=== PATIENT | male | born 1965 | race Caucasian/White ===

== ENCOUNTER 2022-07-13 09:53 | Emergency (ER) | payer SELFPAY ==
[2022-07-13] VITALS (15 sets, daily range): BP systolic 102–120; BP diastolic 69–81; PULSE 56–75; RESP 12–20; TEMP 35.7; O2SAT 94–99
--- NOTE | 2022-07-13 10:13 | DI.RAD.S_ITS ---
PROCEDURE: XR CHEST 1V INDICATIONS: weakness TECHNIQUE: One view of the chest was acquired. COMPARISON: None. FINDINGS: Surgical changes and devices: None. Lungs and pleura: A probable granuloma is present within the right upper lung. Lungs are otherwise clear. No pleural effusions or pneumothorax. Mediastinum: Mediastinal contours appear normal. Heart size is normal. Bones and chest wall: No suspicious bony lesions. Overlying soft tissues appear unremarkable. IMPRESSION: Probable right upper lung granuloma. However, small soft tissue nodule cannot be excluded. If further characterization and documentation is warranted, CT of the chest could be used. No acute cardiopulmonary findings. Dictated by: Laura Paz M.D. on 07/13/2022 at 11:14 Approved by: Laura Paz M.D. on 07/13/2022 at 11:15
--- NOTE | 2022-07-13 10:15 | ED.NAVMDI ---
HPI - Nausea/Vomiting/Diarrhea General Chief complaint: Nausea/Vomiting/Diarrhea Stated complaint: Cold, clammy since yesterday- thinks low bp Time Seen by Provider: 07/13/22 09:58 Source: patient Mode of arrival: Ambulatory History of Present Illness HPI Narrative: Patient is a 56-year-old male history of iron deficiency anemia and hypothyroid presenting today with generalized weakness. He says yesterday he started feeling cool and clammy. He was very lightheaded whenever he stood up. He has not had any falling. He denies any chest pain dizziness shortness of breath exertion. He has not had any fever. He does feel a bit chilled. He does not have any sweats. No cough he just does not feel quite right. No pain abdominal pain nausea vomiting no painful or frequent urination. He previously was taking iron but is not any longer. He denies any blood in his stool no black tarry stools or bright red blood. Related Data Home Medications Medication Instructions Recorded Confirmed LEVOTHYROXINE SODIUM (Synthroid) 0.1 mg PO EVERY DAY ##0 08/03/06 Allergies Allergy/AdvReac Type Severity Reaction Status Date / Time Sulfa (Sulfonamide Allergy Verified 07/13/22 10:03 Antibiotics) Review of Systems Review of Systems Narrative: GENERAL: Chills, generalized weakness HEENT: Denies sinus pain, ear pain, sore throat, difficulty swallowing, neck pain RESPIRATORY: Denies dyspnea, cough, wheezing, hemoptysis, sputum. CARDIOVASCULAR: Denies chest pain, palpitations, orthopnea, edema GASTROINTESTINAL: Denies nausea, vomiting, abdominal pain, diarrhea, constipation, melena. : Denies dysuria, frequency, incontinence, hematuria, urinary retention, flank pain. MUSCULOSKELETAL: Denies weakness, joint pain, or bony pain SKIN: No rash, no erythema, no pruritus NEUROLOGIC: Denies weakness, dizziness, headache, numbness, change in speech, confusion PSYCHIATRIC: No concerning psychosocial issues. 12 point review of systems is negative except for those stated above and HPI Patient History Social History Smoking Status: Never smoker Smoking Status: Never smoker Substance Use Type: does not use Exam Initial Vital Signs Initial Vital Signs: Vital Signs Temperature 96.2 F L 07/13/22 10:04 Pulse Rate 71 07/13/22 10:04 Respiratory Rate 18 07/13/22 10:04 Blood Pressure 120/81 07/13/22 10:04 Pulse Oximetry 98 07/13/22 10:04 Oxygen Delivery Method 07/13/22 10:04 GENERAL: Pale alert 56-year-old male and in no acute distress. HEENT: Head atraumatic,EOMI, pupils reactive, face symmetric, moist mucous membranes CARDIOVASCULAR: Regular rate and rhythm without murmurs, rubs or gallops. RESPIRATORY: Breath sounds equal bilaterally, no wheezes rales or rhonchi. ABDOMEN: Soft, nontender. Normoactive bowel sounds all 4 quadrants. No guarding or rebound. : No CVA tenderness EXTREMITIES: Normal range of motion, no clubbing or edema. Neurovascularly intact NEUROLOGICAL: Alert and oriented x4.Normal gait and speech. SKIN: Warm, dry, no laceration, no petechiae, no rashes or lesions. Course Orders Ordered: ED Orders 07/13/22 10:11 COVID19 -Nasal RAPID/Pre-Proc Stat 07/13/22 10:13 Chest [XR chest 1V] Stat 07/13/22 10:15 EKG-12 Lead Stat 07/13/22 10:20 CBC Auto Diff [Complete Blood Count AUTO DIFF] Stat CMP [Comprehensive Metabolic Panel] Stat Lactate (Lactic Acid) Stat Procalcitonin Stat TSH [Thyroid Stimulating Hormone] Stat Troponin & CK Cardiac Panel Stat 07/13/22 10:36 Blood Culture Stat 07/13/22 12:33 [place] [facility] [place] Stat 07/13/22 13:17 CPK [Creatine Kinase] Stat Discontinued Medications Sodium Chloride (Normal Saline 0.9%) 1,000 mls @ 1,000 mls/hr IV BOLUS ONE Stop: 07/13/22 12:37 Last Infusion: 07/13/22 13:04 Dose: 0 mls/hr Documented By: Admin: 07/13/22 11:46 Dose: 1,000 mls/hr Documented By: JJ Sodium Chloride (Normal Saline 0.9%) 1,000 mls @ 1,000 mls/hr IV BOLUS ONE Stop: 07/13/22 14:41 Last Infusion: 07/13/22 14:28 Dose: 0 mls/hr Documented By: Admin: 07/13/22 14:15 Dose: 1,000 mls/hr Documented By: TOMASA Vital Signs Vital signs: Vital Signs - 8 hr 07/13/22 11:37 07/13/22 11:30 07/13/22 11:30 Pulse Rate 57 L Pulse Rate [Orthostatic Lying] 60 Pulse Rate [Orthostatic Sitting] 67 Pulse Rate [Orthostatic Standing] 75 Respiratory Rate 16 Blood Pressure 105/74 Blood Pressure [Orthostatic Lying] 119/81 Blood Pressure [Orthostatic Sitting] 111/78 Blood Pressure [Orthostatic Standing] 111/76 Pulse Oximetry 98 Oxygen Delivery Method 07/13/22 12:00 07/13/22 12:00 07/13/22 12:30 Pulse Rate 59 L 57 L Pulse Rate [Orthostatic Lying] Pulse Rate [Orthostatic Sitting] Pulse Rate [Orthostatic Standing] Respiratory Rate 16 16 Blood Pressure 105/70 Blood Pressure [Orthostatic Lying] Blood Pressure [Orthostatic Sitting] Blood Pressure [Orthostatic Standing] Pulse Oximetry 97 98 Oxygen Delivery Method 07/13/22 13:06 07/13/22 13:06 07/13/22 13:30 Pulse Rate 66 Pulse Rate [Orthostatic Lying] Pulse Rate [Orthostatic Sitting] Pulse Rate [Orthostatic Standing] Respiratory Rate 20 Blood Pressure 113/75 112/78 Blood Pressure [Orthostatic Lying] Blood Pressure [Orthostatic Sitting] Blood Pressure [Orthostatic Standing] Pulse Oximetry 94 Oxygen Delivery Method 07/13/22 13:30 07/13/22 14:07 07/13/22 14:26 Pulse Rate 56 L 70 Pulse Rate [Orthostatic Lying] Pulse Rate [Orthostatic Sitting] Pulse Rate [Orthostatic Standing] Respiratory Rate Blood Pressure 102/69 Blood Pressure [Orthostatic Lying] Blood Pressure [Orthostatic Sitting] Blood Pressure [Orthostatic Standing] Pulse Oximetry 99 Oxygen Delivery Method 07/13/22 14:26 Pulse Rate 59 L Pulse Rate [Orthostatic Lying] Pulse Rate [Orthostatic Sitting] Pulse Rate [Orthostatic Standing] Respiratory Rate Blood Pressure Blood Pressure [Orthostatic Lying] Blood Pressure [Orthostatic Sitting] Blood Pressure [Orthostatic Standing] Pulse Oximetry 99 Oxygen Delivery Method Room Air MDM - Nausea/Vomiting/Diarrhea Lab Data Result diagrams: 07/13/22 10:20 07/13/22 10:20 Labs: Lab Results 07/13/22 07/13/22 07/13/22 Range/Units 10:11 10:20 10:20 WBC 2.7 L (4.5-11.0) X10^3/uL RBC 3.17 L (4.5-5.9) X10^6/uL Hgb 11.0 L (13.5-17.5) g/dL Hct 31.0 L (41-53) % MCV 97.6 (80-100) fL MCH 34.6 H (26-34) PG MCHC 35.4 (30-36) % RDW 14.4 (11.6-14.8) % Plt Count 201 (150-400) X10^3/uL Neut % (Auto) 30.7 L (50-75) % Lymph % (Auto) 49.3 H (25-40) % [place] % (Auto) 5.3 (3-14) % Eos % (Auto) 12.9 H (2-4) % Baso % (Auto) 1.8 (0-2) % Neut # (Auto) 800 L (9595-4800) /uL Lymph # (Auto) 1300 (1813-8028) /uL [place] # (Auto) 100 (0-900) /uL Eos # (Auto) 300 (0-450) /uL Baso # (Auto) 0 (0-100) /uL Sodium 127 L (137-145) mmol/L Potassium 3.6 (3.4-5.1) mmol/L Chloride 90 L (98-107) mmol/L Carbon Dioxide 26 (22-32) mmol/L BUN 7 L (9-20) mg/dL Creatinine 1.07 (0.66-1.25) mg/dL Estimated GFR > 60 (>60) mL/min BUN/Creatinine Ratio 6.5 (6-22) Glucose 113 H (70-100) mg/dL Lactate (0.7-2.1) mmol/L Calcium 8.7 (8.4-10.2) mg/dL Total Bilirubin 0.6 (0.2-1.3) mg/dL AST 96 H (17-59) IU/L ALT 36 (<50) IU/L Alkaline Phosphatase 42 (38-126) U/L Total Creatine Kinase 2086 H (55-170) U/L CK-MB (CK-2) 12.60 H (<2.37) ng/mL CK-MB (CK-2) Rel Index 0.6 L (1.5-5.0) % Troponin I 0.013 (0.01-0.034) ng/mL Total Protein 7.8 (6.3-8.2) g/dL Albumin 4.5 (3.5-5.0) g/dL Globulin 3.3 (1.7-4.1) g/dL Albumin/Globulin Ratio 1.4 (1.0-2.8) Procalcitonin (<0.5) ng/mL TSH (0.47-4.68) uIU/mL SARS-CoV-2 (PCR) Negative (Negative) 07/13/22 07/13/22 07/13/22 Range/Units 10:20 10:20 10:20 WBC (4.5-11.0) X10^3/uL RBC (4.5-5.9) X10^6/uL Hgb (13.5-17.5) g/dL Hct (41-53) % MCV (80-100) fL MCH (26-34) PG MCHC (30-36) % RDW (11.6-14.8) % Plt Count (150-400) X10^3/uL Neut % (Auto) (50-75) % Lymph % (Auto) (25-40) % [place] % (Auto) (3-14) % Eos % (Auto) (2-4) % Baso % (Auto) (0-2) % Neut # (Auto) (4491-8327) /uL Lymph # (Auto) (2595-5123) /uL [place] # (Auto) (0-900) /uL Eos # (Auto) (0-450) /uL Baso # (Auto) (0-100) /uL Sodium (137-145) mmol/L Potassium (3.4-5.1) mmol/L Chloride (98-107) mmol/L Carbon Dioxide (22-32) mmol/L BUN (9-20) mg/dL Creatinine (0.66-1.25) mg/dL Estimated GFR (>60) mL/min BUN/Creatinine Ratio (6-22) Glucose (70-100) mg/dL Lactate 0.9 (0.7-2.1) mmol/L Calcium (8.4-10.2) mg/dL Total Bilirubin (0.2-1.3) mg/dL AST (17-59) IU/L ALT (<50) IU/L Alkaline Phosphatase (38-126) U/L Total Creatine Kinase (55-170) U/L CK-MB (CK-2) (<2.37) ng/mL CK-MB (CK-2) Rel Index (1.5-5.0) % Troponin I (0.01-0.034) ng/mL Total Protein (6.3-8.2) g/dL Albumin (3.5-5.0) g/dL Globulin (1.7-4.1) g/dL Albumin/Globulin Ratio (1.0-2.8) Procalcitonin 0.04 (<0.5) ng/mL TSH 3.56 (0.47-4.68) uIU/mL SARS-CoV-2 (PCR) (Negative) 07/13/22 Range/Units 13:17 WBC (4.5-11.0) X10^3/uL RBC (4.5-5.9) X10^6/uL Hgb (13.5-17.5) g/dL Hct (41-53) % MCV (80-100) fL MCH (26-34) PG MCHC (30-36) % RDW (11.6-14.8) % Plt Count (150-400) X10^3/uL Neut % (Auto) (50-75) % Lymph % (Auto) (25-40) % [place] % (Auto) (3-14) % Eos % (Auto) (2-4) % Baso % (Auto) (0-2) % Neut # (Auto) (0403-5454) /uL Lymph # (Auto) (9043-6036) /uL [place] # (Auto) (0-900) /uL Eos # (Auto) (0-450) /uL Baso # (Auto) (0-100) /uL Sodium (137-145) mmol/L Potassium (3.4-5.1) mmol/L Chloride (98-107) mmol/L Carbon Dioxide (22-32) mmol/L BUN (9-20) mg/dL Creatinine (0.66-1.25) mg/dL Estimated GFR (>60) mL/min BUN/Creatinine Ratio (6-22) Glucose (70-100) mg/dL Lactate (0.7-2.1) mmol/L Calcium (8.4-10.2) mg/dL Total Bilirubin (0.2-1.3) mg/dL AST (17-59) IU/L ALT (<50) IU/L Alkaline Phosphatase (38-126) U/L Total Creatine Kinase 1502 H (55-170) U/L CK-MB (CK-2) (<2.37) ng/mL CK-MB (CK-2) Rel Index (1.5-5.0) % Troponin I (0.01-0.034) ng/mL Total Protein (6.3-8.2) g/dL Albumin (3.5-5.0) g/dL Globulin (1.7-4.1) g/dL Albumin/Globulin Ratio (1.0-2.8) Procalcitonin (<0.5) ng/mL TSH (0.47-4.68) uIU/mL SARS-CoV-2 (PCR) (Negative) Urine Dip Bedside Urine Glucose Negative Bedside Urine Bilirubin - Negative Bedside Urine Ketone - Negative Urine Specific [place] 1.020 Bedside Urine Occult Blood - Negative Bedside Urine pH 6.0 Bedside Urine Protein - Negative Bedside Urine Urobilinogen - Negative Bedside Urine Nitrite - Negative Bedside Urine Leukocytes - Negative Esterase Imaging Data Chest x-ray: Radiologist's Impression: XRay Report Signed Patient: Deon Spicer MR#: [id number] : 1965 Acct:[id number] Age/Sex: 56 / M Date of Service: 07/13/22 Loc: ED Accession Number: [id number] ?? Procedure: XR chest 1V Ordering Provider: Bety Hendrickson D.O. PROCEDURE:? XR CHEST 1V ? INDICATIONS:? weakness ? TECHNIQUE:? One view of the chest was acquired.? ? COMPARISON:? None. ? FINDINGS:? ? Surgical changes and devices:? None.? ? Lungs and pleura:? A probable granuloma is present within the right upper lung.? Lungs are otherwise clear.? No pleural effusions or pneumothorax.? ? Mediastinum:? Mediastinal contours appear normal.? Heart size is normal.? ? Bones and chest wall:? No suspicious bony lesions.? Overlying soft tissues appear unremarkable.? ? IMPRESSION:? Probable right upper lung granuloma.? However, small soft tissue nodule cannot be excluded.? If further characterization and documentation is warranted, CT of the chest could be used.? No acute cardiopulmonary findings. ? ? Dictated by: Laura Paz M.D. on 07/13/2022 at 11:14 ?? ECG Data Interpretation: Normal sinus rhythm rate 63 AL interval 146 QRS 106 QTC 409 inversion noted in lead [address] elevations slight ST depression noted in lead 2 no priors to compare MDM Narrative Medical decision making narrative: Patient is found to be slightly neutropenic with neutrophils of 800 sodium of 127. No of infection he is afebrile. He is actually slightly hypothermic, is a normal lactate normal signs of sepsis, unlikely to be an infection causing neutropenia. Blood pressure is low but not tachycardic not on any medications. Generally just feeling great. Initial discussion with hospitalist about admission for elevated CPK which is actually trending down after 1 L of fluid. At this time he does not meet admission criteria and likely needs a bone marrow biopsy. Patient does not have insurance he does not have a PCP. I a have spoken personally to Dr. Mario about patient who agrees that he likely does need a bone marrow biopsy. calculation clerk has been consulted. An initial is work to get patient signed up for insurance has also been started but will take some time. This time patient is feeling slightly better after fluids. Recommend repeat blood work. Discharge Plan Departure Patient Disposition: Home Clinical Impression: Neutropenia, Acute hyponatremia, Elevated CPK Instructions: Neutropenia Activity Restrictions/Additional Instructions: *You have been diagnosed with low white count, low sodium, elevated CPK *What to do: At this time paperwork in referrals have been placed. You will likely need a bone marrow biopsy with oncology. There is no sign of infection. You should also have your blood work rechecked including her sodium and white blood cell count. *Continue to take medications as directed *Follow up with your primary care provider in 2-3 days or call [phone] Dr. Adler in oncology, call Zulema [phone], she is the social welfare research worker who is helping you. *Return to ER if you should have increasing weakness shaking sweats dizziness lightheadedness and unbalanced or any new, worsening or concerning symptoms Prescriptions: No Action LEVOTHYROXINE SODIUM (Synthroid) 0.1 mg PO EVERY DAY Qty: 0 Referrals: Checo Adler MD [Physician] - Stand Alone Forms: Work Release Note Visit Report Forms: Patient Portal/API
[2022-07-13 10:32] LABS: Add Manual Diff / Slide Review NO; Basophils Absolute Auto 0 /uL (0-100); Basophils Percent Auto 1.8 % (0-2); Eosinophils Absolute Auto 300 /uL (0-450); Eosinophils Percent Auto 12.9 % (2-4); Lymphocytes Absolute Auto 1300 /uL (1100-4500); Lymphocytes Percent Auto 49.3 % (25-40); Mean Corpuscular HGB Conc 35.4 % (30-36); Mean Corpuscular Hemoglobin 34.6 PG (26-34); Mean Corpuscular Volume 97.6 fL (80-100); Monocytes Absolute Auto 100 /uL (0-900); Monocytes Percent Auto 5.3 % (3-14); Neutrophils Absolute Auto 800 /uL (1500-7000); Neutrophils Percent Auto 30.7 % (50-75); Platelet Count 201 X10^3/uL (150-400); Red Blood Cell Count 3.17 X10^6/uL (4.5-5.9); Red Cell Distribution Width 14.4 % (11.6-14.8); White Blood Cell Count 2.7 X10^3/uL (4.5-11.0)
[2022-07-13 10:39] LABS: Lactate (Lactic Acid) 0.9 mmol/L (0.7-2.1)
[2022-07-13 10:41] LABS: Alanine Aminotransferase 36 IU/L (<50); Albumin 4.5 g/dL (3.5-5.0); Albumin Globulin Ratio 1.4 (1.0-2.8); Alkaline Phosphatase 42 U/L (38-126); Aspartate Aminotransferase 96 IU/L (17-59); BUN Creatinine Ratio 6.5 (6-22); Bilirubin Total 0.6 mg/dL (0.2-1.3); Blood Urea Nitrogen 7 mg/dL (9-20); Calcium 8.7 mg/dL (8.4-10.2); Carbon Dioxide 26 mmol/L (22-32); Chloride 90 mmol/L (98-107); Estimated Glomerular Filt Rate > 60 mL/min (>60); Globulin 3.3 g/dL (1.7-4.1); Glucose 113 mg/dL (70-100); HEMOLYSIS < 15 (0-50); Potassium 3.6 mmol/L (3.4-5.1); Sodium 127 mmol/L (137-145); Total Protein 7.8 g/dL (6.3-8.2)
[2022-07-13 10:47] LABS: Creatine Kinase 2086 U/L (55-170)
[2022-07-13 10:48] LABS: COVID19 -Nasal RAPID Negative (Negative)
[2022-07-13 10:53] LABS: Troponin I 0.013 ng/mL (0.01-0.034)
[2022-07-13 10:56] LABS: Procalcitonin 0.04 ng/mL (<0.5)
[2022-07-13 11:11] LABS: Thyroid Stimulating Hormone 3.56 uIU/mL (0.47-4.68)
[2022-07-13 11:35] LABS: CKMB % Relative Index 0.6 % (1.5-5.0)
[2022-07-13] MEDS: SODIUM CHLORIDE 0.9% 1,000 ML 1000 ML IV ×2 (11:46→14:15)
[2022-07-13 13:52] LABS: Creatine Kinase 1502 U/L (55-170)
--- NOTE | 2022-07-20 09:36 | ONC.MSW ---
T/C-Re: seeking referral for Oncology consult Activity: Pt called inqduiring about how to set-up a referral for Oncology. This WE[employer] MA[employer]GER does remember when he was in the ER, and the ER physician had encouraged him to f/u with our clinic. Pt does not have insurance. He had called the in-person assistor's at , however, he states that he can't afford any of the plans, and makes too much money. However, he also can't afford the nearly $700 it would cost for private pay for the initial appointment. WE[employer] CENT[employer] MA[employer]GER discussed alternatives, and ultimately encouraged him to speak with the assistor's again, and then once he has secured insurance, this WE[employer] C[employer] MANAGER can assist him in applying for [employer] support. He was agreeable to this plan. WE[employer] LOSS CENT[employer] MANAGER will leave an urgent message for the assistor's to call him back and discuss options. Encouraged pt to remain in contact with this WE[employer] C[employer] MANAGER for continued assistance in accessing care.
== END 2022-07-13 14:31 | disposition home or self-care (01) ==
PROVIDERS: Emergency Provider Emergency Medicine
DX: D70.9 Neutropenia, unspecified (principal); E87.1 Hypo-osmolality and hyponatremia; R74.8 Abnormal levels of other serum enzymes; Z20.822 Contact with and (suspected) exposure to COVID-19
CPT/HCPCS: 36415; 71045; 80053; 81003; 82550; 82553; 83605; 84145; 84443; 84484; 85025; 87040; 87635; 93005; 96360; 99284; C9803

== ENCOUNTER 2022-07-20 09:57 | Inpatient (IN) | payer SELFPAY ==
[2022-07-20] VITALS (81 sets, daily range): BP systolic 82–115; BP diastolic 55–78; PULSE 50–73; RESP 5–20; TEMP 35.7–36.3; O2SAT 91–100; BMI 23.7; BMI 20.9
[2022-07-20 10:26] LABS: Add Manual Diff / Slide Review NO; Basophils Absolute Auto 0 /uL (0-100); Eosinophils Absolute Auto 400 /uL (0-450); Eosinophils Percent Auto 10.9 % (2-4); Hemoglobin 11.6 g/dL (13.5-17.5); Lymphocytes Absolute Auto 1800 /uL (1100-4500); Mean Corpuscular HGB Conc 36.1 % (30-36); Mean Corpuscular Hemoglobin 34.5 PG (26-34); Mean Corpuscular Volume 95.5 fL (80-100); Monocytes Absolute Auto 200 /uL (0-900); Monocytes Percent Auto 4.5 % (3-14); Neutrophils Absolute Auto 1000 /uL (1500-7000); Neutrophils Percent Auto 30.6 % (50-75); Platelet Count 207 X10^3/uL (150-400); Red Blood Cell Count 3.35 X10^6/uL (4.5-5.9); Red Cell Distribution Width 13.7 % (11.6-14.8); White Blood Cell Count 3.3 X10^3/uL (4.5-11.0)
[2022-07-20 10:27] LABS: INR 1.1 (0.9-1.3)
[2022-07-20 10:29] LABS: PTT Partial Thromboplastin Tim 35 SECONDS (26-36)
[2022-07-20 10:33] LABS: Lactate (Lactic Acid) 1.5 mmol/L (0.7-2.1)
[2022-07-20 10:34] LABS: Alanine Aminotransferase 37 IU/L (<50); Albumin 4.7 g/dL (3.5-5.0); Albumin Globulin Ratio 1.5 (1.0-2.8); Alkaline Phosphatase 49 U/L (38-126); Aspartate Aminotransferase 127 IU/L (17-59); BUN Creatinine Ratio 10.3 (6-22); Bilirubin Total 0.8 mg/dL (0.2-1.3); Blood Urea Nitrogen 9 mg/dL (9-20); Calcium 8.8 mg/dL (8.4-10.2); Carbon Dioxide 22 mmol/L (22-32); Chloride 84 mmol/L (98-107); Estimated Glomerular Filt Rate > 60 mL/min (>60); Globulin 3.2 g/dL (1.7-4.1); Glucose 109 mg/dL (70-100); HEMOLYSIS < 15 (0-50); Potassium 3.3 mmol/L (3.4-5.1); Total Protein 7.9 g/dL (6.3-8.2)
[2022-07-20 10:41] LABS: Creatine Kinase 2298 U/L (55-170)
--- NOTE | 2022-07-20 10:43 | ED.WEAKNESS ---
HPI - Weakness General Chief complaint: Syncope Stated complaint: Found passed out Time Seen by Provider: 07/20/22 10:19 History of Present Illness HPI Narrative: Patient is a 56-year-old male with history of iron deficiency anemia, hypothyroid who presents after a near syncopal episode. He was seen evaluated last week by myself. He some infectious like symptoms of feeling cold and clammy. However his workup he was found to be hyponatremic and neutropenic thought to just need an outpatient bone marrow biopsy which he said did not happen. Since then he said was feeling okay thought he could go to work today. He drove himself to works at and the car states he did feel good so he called his boss his boss came out to the car in found him unresponsive. He quickly woke up and his boss drove him here. He has no numbness tingling or weakness. He is noted to be hypotensive. He appears pale. He has absolutely no symptoms. No chest pain no fever no chills no shortness of breath. Related Data Home Medications Medication Instructions Recorded Confirmed No Known Home Medications 07/20/22 07/20/22 Allergies Allergy/AdvReac Type Severity Reaction Status Date / Time Sulfa (Sulfonamide Allergy Verified 07/20/22 12:13 Antibiotics) Review of Systems Review of Systems Narrative: GENERAL: Denies chills, fatigue, malaise, fever, sweats, travel HEENT: Denies sinus pain, ear pain, sore throat, difficulty swallowing, neck pain RESPIRATORY: Denies dyspnea, cough, wheezing, hemoptysis, sputum. CARDIOVASCULAR: Denies chest pain, palpitations, orthopnea, edema GASTROINTESTINAL: Denies nausea, vomiting, abdominal pain, diarrhea, constipation, melena. : Denies dysuria, frequency, incontinence, hematuria, urinary retention, flank pain. MUSCULOSKELETAL: Denies weakness, joint pain, or bony pain SKIN: No rash, no erythema, no pruritus NEUROLOGIC: See HPI PSYCHIATRIC: No concerning psychosocial issues. 12 point review of systems is negative except for those stated above and HPI Patient History Social History household members: none Smoking Status: Current every day smoker alcohol intake: current Smoking Status: Never smoker Substance Use Type: does not use Exam Initial Vital Signs Initial Vital Signs: Vital Signs Pulse Rate 61 07/20/22 09:57 Respiratory Rate 15 07/20/22 09:57 Blood Pressure 94/58 L 07/20/22 09:57 Pulse Oximetry 94 07/20/22 09:57 Oxygen Delivery Method 07/20/22 09:57 GENERAL: A very pale 56-year-old male appears older than stated age and in no acute distress. HEENT: Head atraumatic,EOMI, pupils reactive, face symmetric, moist mucous membranes CARDIOVASCULAR: Regular rate and rhythm without murmurs, rubs or gallops. RESPIRATORY: Breath sounds equal bilaterally, no wheezes rales or rhonchi. ABDOMEN: Soft, nontender. Normoactive bowel sounds all 4 quadrants. No guarding or rebound.ss EXTREMITIES: Normal range of motion, no clubbing or edema. Neurovascularly intact NEUROLOGICAL: Alert and oriented x4.Normal gait and speech. Cranial nerves II through XII grossly intact. Division Field Inspector strength equal bilateral SKIN: Warm, dry, no laceration, no petechiae, no rashes or lesions. Procedures Central Line Placement Right IJ: Patient Placed on Monitor/Pulse Ox: Yes MD Prep: mask, gown and gloves Central Line Prep: Chlorhexidine scrub Local Anesthetic: lidocaine 1% Amount of anesthesia used (mL): 3 Ultrasound Used for Placement: Yes Central Line Lumen Inserted: triple Post Procedure: sutured in place, good blood return, all ports aspirated, flushed, capped and sterile dressing applied Post Procedure X-Ray: tip of catheter in good position and no pneumothorax seen Patient Tolerated Procedure: Well and No complications Complications: none Course Orders Ordered: ED Orders 07/20/22 12:38 CT head/brain wo con Stat 07/20/22 14:26 Osmolality Urine Stat UA Complete [Urinalysis and Microscopic] Stat Acetaminophen (Acetaminophen 325 Mg Tablet) 650 mg PO Q6HR PRN PRN Reason: Fever/Mild Pain (1-3) Last Admin: 07/20/22 18:00 Dose: 650 mg Documented By: Enoxaparin Sodium (Enoxaparin 40 Mg/0.4 Ml Syringe) 40 mg SUBCUT DAILY [facility] Heparin Sodium (Porcine) (Heparin Flush (Cl/Picc/Mid-Line) 50 Unit/5 Ml Syringe) 50 unit IV PRN PRN PRN Reason: Flush Heparin Sodium (Porcine) (Heparin Flush (Cl/Picc/Mid-Line) 50 Unit/5 Ml Syringe) 50 unit IV BID NAINA Hydrocortisone (Hydrocortisone 100 Mg/2 Ml Vial) 100 mg IV Q8HR NAINA Last Admin: 07/20/22 16:38 Dose: 100 mg Documented By: Sodium Chloride (Normal Saline 0.9%) 1,000 mls @ 100 mls/hr IV CONT NAINA Last Admin: 07/20/22 14:58 Dose: 100 mls/hr Documented By: Infusion: 07/20/22 14:58 Dose: 100 mls/hr Documented By: Admin: 07/20/22 12:11 Dose: 100 mls/hr Documented By: JUAN C Cefepime HCl 1 gm/ Sodium (Chloride) 100 mls @ 200 mls/hr IV Q12H NAINA Last Infusion: 07/20/22 17:05 Dose: 0 mls/hr Documented By: Admin: 07/20/22 16:35 Dose: 200 mls/hr Documented By: Ondansetron HCl (Ondansetron 4 Mg/2 Ml Inj) 4 mg IV Q8HR PRN PRN Reason: Nausea And Vomiting Discontinued Medications Sodium Chloride (Normal Saline 0.9%) 1,000 mls @ 1,000 mls/hr IV BOLUS ONE Stop: 07/20/22 11:45 Last Infusion: 07/20/22 12:10 Dose: 0 mls/hr Documented By: Admin: 07/20/22 11:00 Dose: 1,000 mls/hr Documented By: JUAN C Levothyroxine Sodium (Levothyroxine Inj 100 Mcg/5 Ml Vial) 75 mcg IV NOW ONE Stop: 07/20/22 15:54 Last Admin: 07/20/22 16:36 Dose: 75 mcg Documented By: Vital Signs Vital signs: Vital Signs - 8 hr 07/20/22 12:05 07/20/22 12:05 07/20/22 12:10 Temperature Pulse Rate 52 L 52 L Respiratory Rate Blood Pressure 96/63 Pulse Oximetry 98 99 07/20/22 12:15 07/20/22 12:15 07/20/22 12:20 Temperature 96.9 F L Pulse Rate 54 L 52 L Respiratory Rate Blood Pressure 100/66 Pulse Oximetry 97 98 07/20/22 12:21 07/20/22 12:21 07/20/22 12:25 Temperature Pulse Rate 52 L Respiratory Rate Blood Pressure 96/55 L 94/71 Pulse Oximetry 99 07/20/22 12:25 Temperature Pulse Rate 58 L Respiratory Rate 20 Blood Pressure Pulse Oximetry 99 MDM - Weakness Lab Data Result diagrams: 07/20/22 10:00 07/20/22 18:40 Labs: Lab Results 07/20/22 07/20/22 07/20/22 Range/Units 10:00 10:00 10:00 WBC 3.3 L (4.5-11.0) X10^3/uL RBC 3.35 L (4.5-5.9) X10^6/uL Hgb 11.6 L (13.5-17.5) g/dL Hct 32.0 L (41-53) % MCV 95.5 (80-100) fL MCH 34.5 H (26-34) PG MCHC 36.1 H (30-36) % RDW 13.7 (11.6-14.8) % Plt Count 207 (150-400) X10^3/uL Neut % (Auto) 30.6 L (50-75) % Lymph % (Auto) 53.0 H (25-40) % [place] % (Auto) 4.5 (3-14) % Eos % (Auto) 10.9 H (2-4) % Baso % (Auto) 1.0 (0-2) % Neut # (Auto) 1000 L (3075-8278) /uL Lymph # (Auto) 1800 (2037-3051) /uL [place] # (Auto) 200 (0-900) /uL Eos # (Auto) 400 (0-450) /uL Baso # (Auto) 0 (0-100) /uL ESR (0-15) MM/HR PT 13.0 H (10.1-12.7) SECONDS INR 1.1 (0.9-1.3) APTT 35 (26-36) SECONDS Sodium 118 L* (137-145) mmol/L Potassium 3.3 L (3.4-5.1) mmol/L Chloride 84 L (98-107) mmol/L Carbon Dioxide 22 (22-32) mmol/L BUN 9 (9-20) mg/dL Creatinine 0.87 (0.66-1.25) mg/dL Estimated GFR > 60 (>60) mL/min BUN/Creatinine Ratio 10.3 (6-22) Glucose 109 H (70-100) mg/dL Lactate (0.7-2.1) mmol/L Calcium 8.8 (8.4-10.2) mg/dL Ferritin (18-464) ng/mL Total Bilirubin 0.8 (0.2-1.3) mg/dL AST 127 H (17-59) IU/L ALT 37 (<50) IU/L Alkaline Phosphatase 49 (38-126) U/L Lactate Dehydrogenase (313-618) U/L Total Creatine Kinase (55-170) U/L CK-MB (CK-2) (<2.37) ng/mL CK-MB (CK-2) Rel Index (1.5-5.0) % Troponin I (0.01-0.034) ng/mL C-Reactive Protein (<1.0) mg/dL Total Protein 7.9 (6.3-8.2) g/dL Albumin 4.7 (3.5-5.0) g/dL Globulin 3.2 (1.7-4.1) g/dL Albumin/Globulin Ratio 1.5 (1.0-2.8) Procalcitonin (<0.5) ng/mL TSH (0.47-4.68) uIU/mL Free T4 (0.78-2.19) ng/dL Free T3 (2.77-5.27) pg/mL Chlamy pneumoniae PCR (Not Detect) Adenovirus (PCR) (Not Detect) B. pertussis DNA (PCR) (Not Detecte) B.parapertussis DNA PCR (Not Detecte) Coronavirus OC43 (PCR) (Not Detect) Coronavirus HKU1 (PCR) (Not Detect) Coronavirus 229E (PCR) (Not Detect) SARS-CoV-2 (PCR) (Not Detecte) Coronavirus NL63 (PCR) (Not Detect) Human Metapneumovir PCR (Not Detect) Influenza Type A (PCR) (Not Detect) Influenza Type B (PCR) (Not Detect) M. pneumoniae (PCR) (Not Detect) Parainfluenza 1 (PCR) (Not Detect) Parainfluenza 2 (PCR) (Not Detect) Parainfluenza 3 (PCR) (Not Detect) Parainfluenza 4 (PCR) (Not Detect) RSV (PCR) (Not Detect) Entero/Rhino (PCR) (Not Detect) Blood Type Antibody Screen 07/20/22 07/20/22 07/20/22 Range/Units 10:00 10:00 10:00 WBC (4.5-11.0) X10^3/uL RBC (4.5-5.9) X10^6/uL Hgb (13.5-17.5) g/dL Hct (41-53) % MCV (80-100) fL MCH (26-34) PG MCHC (30-36) % RDW (11.6-14.8) % Plt Count (150-400) X10^3/uL Neut % (Auto) (50-75) % Lymph % (Auto) (25-40) % [place] % (Auto) (3-14) % Eos % (Auto) (2-4) % Baso % (Auto) (0-2) % Neut # (Auto) (5824-9780) /uL Lymph # (Auto) (2170-7378) /uL [place] # (Auto) (0-900) /uL Eos # (Auto) (0-450) /uL Baso # (Auto) (0-100) /uL ESR (0-15) MM/HR PT (10.1-12.7) SECONDS INR (0.9-1.3) APTT (26-36) SECONDS Sodium (137-145) mmol/L Potassium (3.4-5.1) mmol/L Chloride (98-107) mmol/L Carbon Dioxide (22-32) mmol/L BUN (9-20) mg/dL Creatinine (0.66-1.25) mg/dL Estimated GFR (>60) mL/min BUN/Creatinine Ratio (6-22) Glucose (70-100) mg/dL Lactate 1.5 (0.7-2.1) mmol/L Calcium (8.4-10.2) mg/dL Ferritin (18-464) ng/mL Total Bilirubin (0.2-1.3) mg/dL AST (17-59) IU/L ALT (<50) IU/L Alkaline Phosphatase (38-126) U/L Lactate Dehydrogenase (313-618) U/L Total Creatine Kinase 2298 H D (55-170) U/L CK-MB (CK-2) 12.40 H (<2.37) ng/mL CK-MB (CK-2) Rel Index 0.5 L (1.5-5.0) % Troponin I < 0.012 (0.01-0.034) ng/mL C-Reactive Protein (<1.0) mg/dL Total Protein (6.3-8.2) g/dL Albumin (3.5-5.0) g/dL Globulin (1.7-4.1) g/dL Albumin/Globulin Ratio (1.0-2.8) Procalcitonin (<0.5) ng/mL TSH (0.47-4.68) uIU/mL Free T4 (0.78-2.19) ng/dL Free T3 (2.77-5.27) pg/mL Chlamy pneumoniae PCR (Not Detect) Adenovirus (PCR) (Not Detect) B. pertussis DNA (PCR) (Not Detecte) B.parapertussis DNA PCR (Not Detecte) Coronavirus OC43 (PCR) (Not Detect) Coronavirus HKU1 (PCR) (Not Detect) Coronavirus 229E (PCR) (Not Detect) SARS-CoV-2 (PCR) (Not Detecte) Coronavirus NL63 (PCR) (Not Detect) Human Metapneumovir PCR (Not Detect) Influenza Type A (PCR) (Not Detect) Influenza Type B (PCR) (Not Detect) M. pneumoniae (PCR) (Not Detect) Parainfluenza 1 (PCR) (Not Detect) Parainfluenza 2 (PCR) (Not Detect) Parainfluenza 3 (PCR) (Not Detect) Parainfluenza 4 (PCR) (Not Detect) RSV (PCR) (Not Detect) Entero/Rhino (PCR) (Not Detect) Blood Type A Positive Antibody Screen Negative 07/20/22 07/20/22 07/20/22 Range/Units 10:00 10:00 10:00 WBC (4.5-11.0) X10^3/uL RBC (4.5-5.9) X10^6/uL Hgb (13.5-17.5) g/dL Hct (41-53) % MCV (80-100) fL MCH (26-34) PG MCHC (30-36) % RDW (11.6-14.8) % Plt Count (150-400) X10^3/uL Neut % (Auto) (50-75) % Lymph % (Auto) (25-40) % [place] % (Auto) (3-14) % Eos % (Auto) (2-4) % Baso % (Auto) (0-2) % Neut # (Auto) (6290-4175) /uL Lymph # (Auto) (2651-0561) /uL [place] # (Auto) (0-900) /uL Eos # (Auto) (0-450) /uL Baso # (Auto) (0-100) /uL ESR 12 (0-15) MM/HR PT (10.1-12.7) SECONDS INR (0.9-1.3) APTT (26-36) SECONDS Sodium (137-145) mmol/L Potassium (3.4-5.1) mmol/L Chloride (98-107) mmol/L Carbon Dioxide (22-32) mmol/L BUN (9-20) mg/dL Creatinine (0.66-1.25) mg/dL Estimated GFR (>60) mL/min BUN/Creatinine Ratio (6-22) Glucose (70-100) mg/dL Lactate (0.7-2.1) mmol/L Calcium (8.4-10.2) mg/dL Ferritin (18-464) ng/mL Total Bilirubin (0.2-1.3) mg/dL AST (17-59) IU/L ALT (<50) IU/L Alkaline Phosphatase (38-126) U/L Lactate Dehydrogenase (313-618) U/L Total Creatine Kinase (55-170) U/L CK-MB (CK-2) (<2.37) ng/mL CK-MB (CK-2) Rel Index (1.5-5.0) % Troponin I (0.01-0.034) ng/mL C-Reactive Protein (<1.0) mg/dL Total Protein (6.3-8.2) g/dL Albumin (3.5-5.0) g/dL Globulin (1.7-4.1) g/dL Albumin/Globulin Ratio (1.0-2.8) Procalcitonin 0.04 (<0.5) ng/mL TSH 3.59 (0.47-4.68) uIU/mL Free T4 < 0.07 L (0.78-2.19) ng/dL Free T3 0.69 L (2.77-5.27) pg/mL Chlamy pneumoniae PCR (Not Detect) Adenovirus (PCR) (Not Detect) B. pertussis DNA (PCR) (Not Detecte) B.parapertussis DNA PCR (Not Detecte) Coronavirus OC43 (PCR) (Not Detect) Coronavirus HKU1 (PCR) (Not Detect) Coronavirus 229E (PCR) (Not Detect) SARS-CoV-2 (PCR) (Not Detecte) Coronavirus NL63 (PCR) (Not Detect) Human Metapneumovir PCR (Not Detect) Influenza Type A (PCR) (Not Detect) Influenza Type B (PCR) (Not Detect) M. pneumoniae (PCR) (Not Detect) Parainfluenza 1 (PCR) (Not Detect) Parainfluenza 2 (PCR) (Not Detect) Parainfluenza 3 (PCR) (Not Detect) Parainfluenza 4 (PCR) (Not Detect) RSV (PCR) (Not Detect) Entero/Rhino (PCR) (Not Detect) Blood Type Antibody Screen 07/20/22 07/20/22 07/20/22 Range/Units 10:00 10:00 10:46 WBC (4.5-11.0) X10^3/uL RBC (4.5-5.9) X10^6/uL Hgb (13.5-17.5) g/dL Hct (41-53) % MCV (80-100) fL MCH (26-34) PG MCHC (30-36) % RDW (11.6-14.8) % Plt Count (150-400) X10^3/uL Neut % (Auto) (50-75) % Lymph % (Auto) (25-40) % [place] % (Auto) (3-14) % Eos % (Auto) (2-4) % Baso % (Auto) (0-2) % Neut # (Auto) (1635-4241) /uL Lymph # (Auto) (8945-2977) /uL [place] # (Auto) (0-900) /uL Eos # (Auto) (0-450) /uL Baso # (Auto) (0-100) /uL ESR (0-15) MM/HR PT (10.1-12.7) SECONDS INR (0.9-1.3) APTT (26-36) SECONDS Sodium (137-145) mmol/L Potassium (3.4-5.1) mmol/L Chloride (98-107) mmol/L Carbon Dioxide (22-32) mmol/L BUN (9-20) mg/dL Creatinine (0.66-1.25) mg/dL Estimated GFR (>60) mL/min BUN/Creatinine Ratio (6-22) Glucose (70-100) mg/dL Lactate (0.7-2.1) mmol/L Calcium (8.4-10.2) mg/dL Ferritin 574 H (18-464) ng/mL Total Bilirubin (0.2-1.3) mg/dL AST (17-59) IU/L ALT (<50) IU/L Alkaline Phosphatase (38-126) U/L Lactate Dehydrogenase 771 H (313-618) U/L Total Creatine Kinase (55-170) U/L CK-MB (CK-2) (<2.37) ng/mL CK-MB (CK-2) Rel Index (1.5-5.0) % Troponin I (0.01-0.034) ng/mL C-Reactive Protein < 0.5 (<1.0) mg/dL Total Protein (6.3-8.2) g/dL Albumin (3.5-5.0) g/dL Globulin (1.7-4.1) g/dL Albumin/Globulin Ratio (1.0-2.8) Procalcitonin (<0.5) ng/mL TSH (0.47-4.68) uIU/mL Free T4 (0.78-2.19) ng/dL Free T3 (2.77-5.27) pg/mL Chlamy pneumoniae PCR Not detected (Not Detect) Adenovirus (PCR) Not detected (Not Detect) B. pertussis DNA (PCR) Not detected (Not Detecte) B.parapertussis DNA PCR Not detected (Not Detecte) Coronavirus OC43 (PCR) Not detected (Not Detect) Coronavirus HKU1 (PCR) Not detected (Not Detect) Coronavirus 229E (PCR) Not detected (Not Detect) SARS-CoV-2 (PCR) Not detected (Not Detecte) Coronavirus NL63 (PCR) Not detected (Not Detect) Human Metapneumovir PCR Not detected (Not Detect) Influenza Type A (PCR) Not detected (Not Detect) Influenza Type B (PCR) Not detected (Not Detect) M. pneumoniae (PCR) Not detected (Not Detect) Parainfluenza 1 (PCR) Not detected (Not Detect) Parainfluenza 2 (PCR) Not detected (Not Detect) Parainfluenza 3 (PCR) Not detected (Not Detect) Parainfluenza 4 (PCR) Not detected (Not Detect) RSV (PCR) Not detected (Not Detect) Entero/Rhino (PCR) Not detected (Not Detect) Blood Type Antibody Screen Imaging Data Chest x-ray: Radiologist Impression: Signed Patient: Deon Spicer MR#: [id number] : 1965 Acct:[id number] Age/Sex: 56 / M Date of Service: 07/13/22 Loc: ED Accession Number: [id number] ?? Procedure: XR chest 1V Ordering Provider: Bety Hendrickson D.O. PROCEDURE:? XR CHEST 1V ? INDICATIONS:? weakness ? TECHNIQUE:? One view of the chest was acquired.? ? COMPARISON:? None. ? FINDINGS:? ? Surgical changes and devices:? None.? ? Lungs and pleura:? A probable granuloma is present within the right upper lung.? Lungs are otherwise clear.? No pleural effusions or pneumothorax.? ? Mediastinum:? Mediastinal contours appear normal.? Heart size is normal.? ? Bones and chest wall:? No suspicious bony lesions.? Overlying soft tissues appear unremarkable.? ? IMPRESSION:? Probable right upper lung granuloma.? However, small soft tissue nodule cannot be excluded.? If further characterization and documentation is warranted, CT of the chest could be used.? No acute cardiopulmonary findings. ? ? Dictated by: Laura Paz M.D. on 07/13/2022 at 11:14 ? ? CT scan - chest: Radiologist Impression: Signed Patient: Deon Spicer MR#: [id number] : 1965 Acct:[id number] Age/Sex: 56 / M Date of Service: 07/20/22 Loc: ED Accession Number: [id number] ?? Procedure: CT angio chest abdomen pelvis Ordering Provider: Bety Hendrickson D.O. PROCEDURE:? CT ANGIO CHEST ABDOMEN PELVIS ? INDICATIONS:? hypotensive very pale ? TECHNIQUE:? Precontrast 5 mm thick sections acquired from the lung apices to the iliac crests.? After the administration of intravenous contrast, 2.5 mm thick sections again acquired from the lung apices to the iliac crests.? Maximum intensity projection (MIP) oblique sagittal and coronal reformats were then acquired.? For radiation dose reduction, the following was used:? automated exposure control.? ? COMPARISON:? None. ? FINDINGS:? Small pericardial effusion and trace bilateral pleural effusions with mild diffuse anasarca and small volume intra-abdominal and pelvic free fluid.? Findings indicative of third-spacing with numerous differential considerations as to the cause. ? No pulmonary embolism or dissection.? Heart size is mildly enlarged.? No thoracic lymphadenopathy.? No suspicious lung mass.? There is right greater than left bibasilar and posterior dependent atelectasis scattered small nodules in the lung bases are likely infectious/inflammatory. ? Early arterial phase evaluation of the solid abdominal visceral structures demonstrates no mass lesion or acute finding.? No abnormally dilated or obviously thickened loop of bowel identified.? Urinary bladder unremarkable.? No threshold enlarged abdominal or pelvic lymph node. ? ? IMPRESSION:? ? Mild third-spacing of fluids. ? No acute aortic syndrome or pulmonary embolism. ? ? Dictated by: Frederick Nash M.D. on 07/20/2022 at 11:21 ? ? ECG Data Interpretation: Sinus rhythm rate 61 IA interval 154 QRS 122 QTC 487 right bundle-branch block noted similar to previous EKG MDM Narrative Medical decision making narrative: Overall appears weak and pale. Blood pressure is in the 80s and minimally responsive to fluids. CT does not show any abnormality. Blood work does show that he has more hyponatremic today a sodium of 118. TSH was checked last week and was normal. No sign of infection. Respiratory panel also negative. Blood pressure finally does start to increase. However central line was placed for frequent blood draws and possible need for pressors. accepts patient Discharge Plan Departure Patient Disposition: Admitted As Inpatient Clinical Impression: Acute hyponatremia, Neutropenia, Elevated CPK Admit Date/Time: 07/20/22 12:26 Admit Provider: Aiden Zayas
[2022-07-20 10:44] LABS: Sodium 118 mmol/L (137-145)
[2022-07-20 10:46] LABS: Troponin I < 0.012 ng/mL (0.01-0.034)
--- NOTE | 2022-07-20 10:57 | DI.CT.S_ITS ---
PROCEDURE: CT ANGIO CHEST ABDOMEN PELVIS INDICATIONS: hypotensive very pale TECHNIQUE: Precontrast 5 mm thick sections acquired from the lung apices to the iliac crests. After the administration of intravenous contrast, 2.5 mm thick sections again acquired from the lung apices to the iliac crests. Maximum intensity projection (MIP) oblique sagittal and coronal reformats were then acquired. For radiation dose reduction, the following was used: automated exposure control. COMPARISON: None. FINDINGS: Small pericardial effusion and trace bilateral pleural effusions with mild diffuse anasarca and small volume intra-abdominal and pelvic free fluid. Findings indicative of third-spacing with numerous differential considerations as to the cause. No pulmonary embolism or dissection. Heart size is mildly enlarged. No thoracic lymphadenopathy. No suspicious lung mass. There is right greater than left bibasilar and posterior dependent atelectasis scattered small nodules in the lung bases are likely infectious/inflammatory. Early arterial phase evaluation of the solid abdominal visceral structures demonstrates no mass lesion or acute finding. No abnormally dilated or obviously thickened loop of bowel identified. Urinary bladder unremarkable. No threshold enlarged abdominal or pelvic lymph node. IMPRESSION: Mild third-spacing of fluids. No acute aortic syndrome or pulmonary embolism. Dictated by: Frederick Nash M.D. on 07/20/2022 at 11:21 Approved by: Frederick Nash M.D. on 07/20/2022 at 11:31
[2022-07-20] MEDS: SODIUM CHLORIDE 0.9% 1,000 ML 1000 ML IV (11:00)
[2022-07-20 11:04] LABS: CKMB % Relative Index 0.5 % (1.5-5.0)
[2022-07-20 12:08] LABS: Adenovirus Not Detected (Not Detect); B. parapertussis Not Detected (Not Detecte); Bordetella pertussis Not Detected (Not Detecte); Chlamydophila pneumoniae Not Detected (Not Detect); Coronavirus 229E Not Detected (Not Detect); Coronavirus HKU1 Not Detected (Not Detect); Coronavirus NL 63 Not Detected (Not Detect); Coronavirus OC43 Not Detected (Not Detect); Human Metapneumovirus Not Detected (Not Detect); Human Rhinovirus/Enterovirus Not Detected (Not Detect); Influenza A Not Detected (Not Detect); Influenza B Not Detected (Not Detect); Mycoplasma pneumoniae Not Detected (Not Detect); Parainfluenza Virus 1 Not Detected (Not Detect); Parainfluenza Virus 2 Not Detected (Not Detect); Parainfluenza Virus 3 Not Detected (Not Detect); Parainfluenza Virus 4 Not Detected (Not Detect); Respiratory Syncytial Virus Not Detected (Not Detect); SARS- CoV-2 Not Detected (Not Detecte)
[2022-07-20] MEDS: SODIUM CHLORIDE 0.9% 1,000 ML 100 ML IV ×2 (12:11→14:58)
[2022-07-20 12:20] LABS: Procalcitonin 0.04 ng/mL (<0.5)
[2022-07-20 12:27] LABS: Erythrocyte Sedimentation Rate 12 MM/HR (0-15)
[2022-07-20 12:37] LABS: Lactate Dehydrogenase 771 U/L (313-618)
[2022-07-20 12:38] LABS: C-Reactive Protein Quant < 0.5 mg/dL (<1.0)
--- NOTE | 2022-07-20 12:38 | DI.CT.S_ITS ---
PROCEDURE: CT HEAD/BRAIN WO CON INDICATIONS: hyponatremiA TECHNIQUE: Noncontrast 4.5 mm thick angled axial sections acquired from the foramen magnum to the vertex, with coronal and sagittal reformats. For radiation dose reduction, the following was used: automated exposure control, adjustment of mA and/or kV according to patient size. COMPARISON: None. FINDINGS: Image quality: Excellent. CSF spaces: Basal cisterns are patent. No extra-axial fluid collections. Ventricles are normal in size and shape. Brain: No midline shift. No intracranial masses or hemorrhage. Rodriguez-white matter interface is normal. Skull and face: Calvarium and visualized facial bones are intact, without suspicious lesions. Sinuses: Visualized sinuses and mastoids are clear. IMPRESSION: Unremarkable noncontrast head CT. If it would be helpful for clinical management decision making, please consider a dedicated, scheduled brain MRI for further evaluation (assuming that there is no contraindication). Dictated by: Soham Ferreira M.D. on 07/20/2022 at 11:55 Approved by: Soham Ferreira M.D. on 07/20/2022 at 11:55
[2022-07-20 12:43] LABS: Thyroid Stimulating Hormone 3.59 uIU/mL (0.47-4.68)
[2022-07-20 13:13] LABS: Ferritin 574 ng/mL (18-464)
--- NOTE | 2022-07-20 13:21 | P.HP_ITS ---
History of Present Illness History of Present Illness Date Patient Seen: 07/20/22 Time Patient Seen: 12:00 Chief complaint: Found passed out Narrative: Mr. Spicer is a 56M with PMH iron deficiency anemia who was found passed out in his car. He states he was on thyroid medication years ago, but was told he no longer had this as a problem. He has been feeling completely his normal self until a week ago when he presented to the hospital with weakness. He was also feeling cold and he was lightheaded. He was noted to have leukopenia and hyponatremia. He was given IV fluids and ultimately discharged home. He felt somewhat better. He states he had no nausea, vomiting, diarrhea. He felt cold, but no fevers. No cough, shortness of breath, confusion, chest pain, dysuria. No new rashes. He drinks 2-3 etoh a week. He does not smoke, no other illicit substances. No travel, no tick exposures. In the ED workup was done, vitals notable initially for blood pressure 83/58. No temp documented. Heart rate in the 50s. Labs notable for WBC 3.3, with 30% PMNs. Hgb 11.6. INR 1.1. Na 118. K 3.3. Creatinine 0.87. Lactate 1.5. CK 2298. Trop negative. Chest xray shows right IJ in appropriate position. CT head with no acute process. CT chest, abd/pelvis shows small pericardial effusion, trace pleural effusions, and small volume intra-abdominal fluid with scattered lung n odules. He was ordered for IV fluids and admitted for further treatment. Family history: Father with DM, no family history of cancer or rheumatologic disease Patient History Family & Social History Safety & Behavioral: Feels Safe in Current Yes Environment Been Physically Hurt or No Threatened By a Person Tobacco & Substance use: Smoking Status Never smoker alcohol intake frequency holiday/special occasion Substance Use Type does not use Meds Home Medications and Allergies Home Medications Medication Instructions Recorded Confirmed Type LEVOTHYROXINE SODIUM (Synthroid) 0.1 mg PO EVERY DAY ##0 08/03/06 History Allergies Allergy/AdvReac Type Severity Reaction Status Date / Time Sulfa (Sulfonamide Allergy Verified 07/20/22 12:13 Antibiotics) Review of Systems Review of Systems Narrative: 14 systems reviewed and negative aside from what is noted in HPI Exam Vital Signs (past 8 hours): - 07/20/22 10:08 07/20/22 10:10 07/20/22 10:15 Pulse Rate 61 61 Respiratory Rate 15 20 Blood Pressure 83/58 L Pulse Oximetry 95 94 Oxygen Delivery Method 07/20/22 10:15 07/20/22 10:20 07/20/22 10:25 Pulse Rate 58 L 59 L 56 L Respiratory Rate 8 L 7 L 7 L Blood Pressure Pulse Oximetry 95 97 94 Oxygen Delivery Method Room Air 07/20/22 10:26 07/20/22 10:26 07/20/22 10:30 Pulse Rate 57 L 56 L Respiratory Rate 9 L 6 L Blood Pressure 84/57 L Pulse Oximetry 94 95 Oxygen Delivery Method 07/20/22 10:32 07/20/22 10:32 07/20/22 10:35 Pulse Rate 56 L Respiratory Rate 7 L Blood Pressure 82/56 L 82/57 L Pulse Oximetry 96 Oxygen Delivery Method 07/20/22 10:35 07/20/22 10:40 07/20/22 10:40 Pulse Rate 56 L 56 L Respiratory Rate 10 L 13 Blood Pressure 85/61 L Pulse Oximetry 97 98 Oxygen Delivery Method 07/20/22 10:45 07/20/22 10:45 07/20/22 10:50 Pulse Rate 56 L Respiratory Rate 10 L Blood Pressure 89/65 L 84/60 L Pulse Oximetry 99 Oxygen Delivery Method 07/20/22 10:50 07/20/22 11:05 07/20/22 11:05 Pulse Rate 53 L 59 L Respiratory Rate 8 L Blood Pressure 90/61 Pulse Oximetry 99 Oxygen Delivery Method 07/20/22 11:10 07/20/22 11:10 07/20/22 11:15 Pulse Rate 57 L 53 L Respiratory Rate 13 Blood Pressure 92/64 Pulse Oximetry 97 99 Oxygen Delivery Method 07/20/22 11:20 07/20/22 11:24 07/20/22 11:24 Pulse Rate 54 L 55 L Respiratory Rate Blood Pressure 90/63 Pulse Oximetry 98 97 Oxygen Delivery Method 07/20/22 11:25 07/20/22 11:26 07/20/22 11:26 Pulse Rate 54 L 54 L Respiratory Rate 9 L Blood Pressure 89/61 L Pulse Oximetry 100 96 Oxygen Delivery Method 07/20/22 11:30 07/20/22 11:35 07/20/22 11:35 Pulse Rate 57 L 61 Respiratory Rate 15 11 L Blood Pressure 92/60 Pulse Oximetry 99 94 Oxygen Delivery Method 07/20/22 11:40 07/20/22 11:40 07/20/22 09:57 Pulse Rate 53 L 61 Respiratory Rate 7 L 15 Blood Pressure 97/64 94/58 L Pulse Oximetry 98 94 Oxygen Delivery Method Room Air 07/20/22 11:45 07/20/22 11:50 07/20/22 11:50 Pulse Rate 52 L 51 L Respiratory Rate Blood Pressure 84/57 L Pulse Oximetry 99 99 Oxygen Delivery Method 07/20/22 11:55 07/20/22 11:55 07/20/22 12:00 Pulse Rate 51 L 54 L Respiratory Rate 15 Blood Pressure 98/64 Pulse Oximetry 99 98 Oxygen Delivery Method 07/20/22 12:01 07/20/22 12:01 07/20/22 12:05 Pulse Rate 52 L Respiratory Rate Blood Pressure 97/60 96/63 Pulse Oximetry 98 Oxygen Delivery Method 07/20/22 12:05 07/20/22 12:10 Pulse Rate 52 L 52 L Respiratory Rate Blood Pressure Pulse Oximetry 98 99 Oxygen Delivery Method Oxygen Delivery Method Room Air Narrative Exam Narrative: GEN: chronically ill appearing, pale HEENT: PERRL, moist mucous membranes NECK: trachea midline, no JVD, no lymphadenopathy appreciated CV: regular rate and rhythm, no murmurs PULM: clear bilaterally, no wheezes, rhonchi, rales ABD: soft, nontender, nondistended, no organomegaly, normal bowel sounds EXT: warm and well perfused with no edema NEURO: awake, alert, oriented, slow to respond Objective Labs Result Diagrams: 07/20/22 10:00 07/20/22 10:00 Labs: Laboratory Results - last 24 hr 07/20/22 07/20/22 07/20/22 10:00 10:00 10:00 WBC 3.3 L RBC 3.35 L Hgb 11.6 L Hct 32.0 L MCV 95.5 MCH 34.5 H MCHC 36.1 H RDW 13.7 Plt Count 207 Neut % (Auto) 30.6 L Lymph % (Auto) 53.0 H [place] % (Auto) 4.5 Eos % (Auto) 10.9 H Baso % (Auto) 1.0 Neut # (Auto) 1000 L Lymph # (Auto) 1800 [place] # (Auto) 200 Eos # (Auto) 400 Baso # (Auto) 0 ESR PT 13.0 H INR 1.1 APTT 35 Sodium 118 L* Potassium 3.3 L Chloride 84 L Carbon Dioxide 22 BUN 9 Creatinine 0.87 Estimated GFR > 60 BUN/Creatinine Ratio 10.3 Glucose 109 H Lactate Calcium 8.8 Ferritin Total Bilirubin 0.8 AST 127 H ALT 37 Alkaline Phosphatase 49 Lactate Dehydrogenase Total Creatine Kinase CK-MB (CK-2) CK-MB (CK-2) Rel Index Troponin I C-Reactive Protein Total Protein 7.9 Albumin 4.7 Globulin 3.2 Albumin/Globulin Ratio 1.5 Procalcitonin TSH Chlamy pneumoniae PCR Adenovirus (PCR) B. pertussis DNA (PCR) B.parapertussis DNA PCR Coronavirus OC43 (PCR) Coronavirus HKU1 (PCR) Coronavirus 229E (PCR) SARS-CoV-2 (PCR) Coronavirus NL63 (PCR) Human Metapneumovir PCR Influenza Type A (PCR) Influenza Type B (PCR) M. pneumoniae (PCR) Parainfluenza 1 (PCR) Parainfluenza 2 (PCR) Parainfluenza 3 (PCR) Parainfluenza 4 (PCR) RSV (PCR) Entero/Rhino (PCR) Blood Type Antibody Screen 07/20/22 07/20/22 07/20/22 10:00 10:00 10:00 WBC RBC Hgb Hct MCV MCH MCHC RDW Plt Count Neut % (Auto) Lymph % (Auto) [place] % (Auto) Eos % (Auto) Baso % (Auto) Neut # (Auto) Lymph # (Auto) [place] # (Auto) Eos # (Auto) Baso # (Auto) ESR PT INR APTT Sodium Potassium Chloride Carbon Dioxide BUN Creatinine Estimated GFR BUN/Creatinine Ratio Glucose Lactate 1.5 Calcium Ferritin Total Bilirubin AST ALT Alkaline Phosphatase Lactate Dehydrogenase Total Creatine Kinase 2298 H D CK-MB (CK-2) 12.40 H CK-MB (CK-2) Rel Index 0.5 L Troponin I < 0.012 C-Reactive Protein Total Protein Albumin Globulin Albumin/Globulin Ratio Procalcitonin TSH Chlamy pneumoniae PCR Adenovirus (PCR) B. pertussis DNA (PCR) B.parapertussis DNA PCR Coronavirus OC43 (PCR) Coronavirus HKU1 (PCR) Coronavirus 229E (PCR) SARS-CoV-2 (PCR) Coronavirus NL63 (PCR) Human Metapneumovir PCR Influenza Type A (PCR) Influenza Type B (PCR) M. pneumoniae (PCR) Parainfluenza 1 (PCR) Parainfluenza 2 (PCR) Parainfluenza 3 (PCR) Parainfluenza 4 (PCR) RSV (PCR) Entero/Rhino (PCR) Blood Type A Positive Antibody Screen Negative 07/20/22 07/20/22 07/20/22 10:00 10:00 10:00 WBC RBC Hgb Hct MCV MCH MCHC RDW Plt Count Neut % (Auto) Lymph % (Auto) [place] % (Auto) Eos % (Auto) Baso % (Auto) Neut # (Auto) Lymph # (Auto) [place] # (Auto) Eos # (Auto) Baso # (Auto) ESR 12 PT INR APTT Sodium Potassium Chloride Carbon Dioxide BUN Creatinine Estimated GFR BUN/Creatinine Ratio Glucose Lactate Calcium Ferritin Total Bilirubin AST ALT Alkaline Phosphatase Lactate Dehydrogenase Total Creatine Kinase CK-MB (CK-2) CK-MB (CK-2) Rel Index Troponin I C-Reactive Protein Total Protein Albumin Globulin Albumin/Globulin Ratio Procalcitonin 0.04 TSH 3.59 Chlamy pneumoniae PCR Adenovirus (PCR) B. pertussis DNA (PCR) B.parapertussis DNA PCR Coronavirus OC43 (PCR) Coronavirus HKU1 (PCR) Coronavirus 229E (PCR) SARS-CoV-2 (PCR) Coronavirus NL63 (PCR) Human Metapneumovir PCR Influenza Type A (PCR) Influenza Type B (PCR) M. pneumoniae (PCR) Parainfluenza 1 (PCR) Parainfluenza 2 (PCR) Parainfluenza 3 (PCR) Parainfluenza 4 (PCR) RSV (PCR) Entero/Rhino (PCR) Blood Type Antibody Screen 07/20/22 07/20/22 07/20/22 10:00 10:00 10:46 WBC RBC Hgb Hct MCV MCH MCHC RDW Plt Count Neut % (Auto) Lymph % (Auto) [place] % (Auto) Eos % (Auto) Baso % (Auto) Neut # (Auto) Lymph # (Auto) [place] # (Auto) Eos # (Auto) Baso # (Auto) ESR PT INR APTT Sodium Potassium Chloride Carbon Dioxide BUN Creatinine Estimated GFR BUN/Creatinine Ratio Glucose Lactate Calcium Ferritin 574 H Total Bilirubin AST ALT Alkaline Phosphatase Lactate Dehydrogenase 771 H Total Creatine Kinase CK-MB (CK-2) CK-MB (CK-2) Rel Index Troponin I C-Reactive Protein < 0.5 Total Protein Albumin Globulin Albumin/Globulin Ratio Procalcitonin TSH Chlamy pneumoniae PCR Not detected Adenovirus (PCR) Not detected B. pertussis DNA (PCR) Not detected B.parapertussis DNA PCR Not detected Coronavirus OC43 (PCR) Not detected Coronavirus HKU1 (PCR) Not detected Coronavirus 229E (PCR) Not detected SARS-CoV-2 (PCR) Not detected Coronavirus NL63 (PCR) Not detected Human Metapneumovir PCR Not detected Influenza Type A (PCR) Not detected Influenza Type B (PCR) Not detected M. pneumoniae (PCR) Not detected Parainfluenza 1 (PCR) Not detected Parainfluenza 2 (PCR) Not detected Parainfluenza 3 (PCR) Not detected Parainfluenza 4 (PCR) Not detected RSV (PCR) Not detected Entero/Rhino (PCR) Not detected Blood Type Antibody Screen Assessment & Plan Assessment & Plan narrative: Mr. Spicer is a 56M with PMH of iron deficiency anemia and remotely diagnosed with hypothyroidism who presents after being found passed out in car, found to have acute hyponatremia and hypotension. 1. Acute hyponatremia -patient states normal appetite, no new meds, no vomiting/diarrhea -patient volume appears clinically mildly hypovolemic to euvolemic, but has evidence of third spacing on imaging -brain imaging shows no acute process on CT head -ordered MRI head to further evaluate -chest imaging shows pleural effusions and small nodules -TSH normal, follow up t4, t3 -check cortisol in the morning -continue gental IVF for fluid resuscitation, however trend sodium q4 and goal 6-8 meq increase in 24 hours 2. Acute hypotension -procal negative, no fevers chills -doubt acute bacterial infection -check ECHO -thyroid and adrenal labs as above -blood culture and urine ordered -order IV cefepmine for empiric coverage 3. Neutropenia, acute and history of iron deficiency anemia -etiology not clear -possibility includes inflammatory, malignant, infectious -blood culture drawn one week ago negative -ESR/CRP normal -check HIV -CT chest and abd/pelvis showed no definite malignancy -consider bone marrow biopsy 4. Anasarca with small pericardial, and pleural effusions and intra-abdominal fluid -albumin normal 5. Elevated CK -consistent with mild acute rhabdomyolysis -etiology not clear -IV fluids as above -trend daily CODE: Full Proxy: Gilmer Spicer, father I have utilized all available resources to reconcile the patient's home medications Time Spent With Patient Critical Care time: I spent a total of 40 minutes of critical care time on this patient's care today; this time is exclusive of procedural time. Quality MIPS - Admit I confirm the patient?s Advance Care Plan is present, Code status is documented, Surrogate decision maker is in patient?s record [If Yes, STOP here]: Yes
--- NOTE | 2022-07-20 13:29 | PM.CN.EICU ---
History of Present Illness Consult details IF CAMERA ACTIVATED, patient seen via real-time interactive audiovisual communication: Camera activated Date Patient Seen: 07/20/22 Chief complaint: Found passed out Reason for consult: hypotension, hyponatremia, neutropenia Consent obtained for tele-mattress stuffer care: Yes Patient Location: ICU Provider location (State): [place] Other participants/roles: Nurse Narrative: HPI: 56 yo man with PMH Of iron deficiency anemia and hypothyroidism presented to ER on 07/13 for generalized weakness, chills, and lightheadness. He was found to have Na of 127 and WBC of 2.7 (Neutrophill 30%), and CPK of 2000 which improved to 1500 with IVF. Infectious work up was neg including neg COVID test. TSH wnl. Patient discharged from ER with plans for bone marrow biopsy. Patient reports that he was fine until today. Patient brought in to ER again today 07/20 because of dizziness and lightheadedness. Pt. went to work and was found passed out by his boss in his car. Patient woke up and reported no complains besides generelized weakness, lghtheadedness/chills. Labs now show Na of 118, WBC of 3.3, and CPK of almost 3000. CXR unremarkable. CT of head neg for any acute findings. CTA of chest/abd/pelvis showed anasarca/third spacing of fluids but otherwise unremarkable. BP initially was low. SBP in the 80's but after IVF it improved to 90s. ROS: No pain, fever, sob. NO cough, n/v, diarrhea. Pt. reports good PO intake. He denies any localized weakness or numbness. [facility] Social History Smoking Status: Never smoker Comment: PMH: Iron deficiency anemia Hypothyroidism Surgical history: Tonsillectomy Social HIstory: chewed tobacco for > 30 years, drinks about 2 alcoholic drinks a week, no other recreational drugs Family HIstory: Father has Diabetes. No family history of cancer Current Medications Current Medications Medications: Home Medications LEVOTHYROXINE SODIUM (Synthroid) 0.1 mg PO EVERY DAY ##0 08/03/06 [History] Visit Medications (administered) Generic Name Dose Route Start Last Admin Trade Name Freq PRN Reason Stop Dose Admin Sodium Chloride 1,000 mls @ 100 mls/hr 07/20/22 11:00 07/20/22 12:11 Normal Saline 0.9% IV 100 mls/hr CONT NAINA Administration Allergies: Wellbutrin, PCN and Sulfa Exam Vital Signs (past 8 hours): - 07/20/22 10:08 07/20/22 10:10 07/20/22 10:15 Pulse Rate 61 61 Respiratory Rate 15 20 Blood Pressure 83/58 L Pulse Oximetry 95 94 Oxygen Delivery Method 07/20/22 10:15 07/20/22 10:20 07/20/22 10:25 Pulse Rate 58 L 59 L 56 L Respiratory Rate 8 L 7 L 7 L Blood Pressure Pulse Oximetry 95 97 94 Oxygen Delivery Method Room Air 07/20/22 10:26 07/20/22 10:26 07/20/22 10:30 Pulse Rate 57 L 56 L Respiratory Rate 9 L 6 L Blood Pressure 84/57 L Pulse Oximetry 94 95 Oxygen Delivery Method 07/20/22 10:32 07/20/22 10:32 07/20/22 10:35 Pulse Rate 56 L Respiratory Rate 7 L Blood Pressure 82/56 L 82/57 L Pulse Oximetry 96 Oxygen Delivery Method 07/20/22 10:35 07/20/22 10:40 07/20/22 10:40 Pulse Rate 56 L 56 L Respiratory Rate 10 L 13 Blood Pressure 85/61 L Pulse Oximetry 97 98 Oxygen Delivery Method 07/20/22 10:45 07/20/22 10:45 07/20/22 10:50 Pulse Rate 56 L Respiratory Rate 10 L Blood Pressure 89/65 L 84/60 L Pulse Oximetry 99 Oxygen Delivery Method 07/20/22 10:50 07/20/22 11:05 07/20/22 11:05 Pulse Rate 53 L 59 L Respiratory Rate 8 L Blood Pressure 90/61 Pulse Oximetry 99 Oxygen Delivery Method 07/20/22 11:10 07/20/22 11:10 07/20/22 11:15 Pulse Rate 57 L 53 L Respiratory Rate 13 Blood Pressure 92/64 Pulse Oximetry 97 99 Oxygen Delivery Method 07/20/22 11:20 07/20/22 11:24 07/20/22 11:24 Pulse Rate 54 L 55 L Respiratory Rate Blood Pressure 90/63 Pulse Oximetry 98 97 Oxygen Delivery Method 07/20/22 11:25 07/20/22 11:26 07/20/22 11:26 Pulse Rate 54 L 54 L Respiratory Rate 9 L Blood Pressure 89/61 L Pulse Oximetry 100 96 Oxygen Delivery Method 07/20/22 11:30 07/20/22 11:35 07/20/22 11:35 Pulse Rate 57 L 61 Respiratory Rate 15 11 L Blood Pressure 92/60 Pulse Oximetry 99 94 Oxygen Delivery Method 07/20/22 11:40 07/20/22 11:40 07/20/22 09:57 Pulse Rate 53 L 61 Respiratory Rate 7 L 15 Blood Pressure 97/64 94/58 L Pulse Oximetry 98 94 Oxygen Delivery Method Room Air 07/20/22 11:45 07/20/22 11:50 07/20/22 11:50 Pulse Rate 52 L 51 L Respiratory Rate Blood Pressure 84/57 L Pulse Oximetry 99 99 Oxygen Delivery Method 07/20/22 11:55 07/20/22 11:55 07/20/22 12:00 Pulse Rate 51 L 54 L Respiratory Rate 15 Blood Pressure 98/64 Pulse Oximetry 99 98 Oxygen Delivery Method 07/20/22 12:01 07/20/22 12:01 07/20/22 12:05 Pulse Rate 52 L Respiratory Rate Blood Pressure 97/60 96/63 Pulse Oximetry 98 Oxygen Delivery Method 07/20/22 12:05 07/20/22 12:10 Pulse Rate 52 L 52 L Respiratory Rate Blood Pressure Pulse Oximetry 98 99 Oxygen Delivery Method Oxygen Delivery Method Room Air Narrative Exam Narrative: Patient seen over two way audio visual system. He is sitting up comfortably in bed, alert, NAD, and answering questions appropriately Objective Labs Result Diagrams: 07/20/22 10:00 07/20/22 10:00 Labs: Laboratory Results - last 24 hr 07/20/22 07/20/22 07/20/22 10:00 10:00 10:00 WBC 3.3 L RBC 3.35 L Hgb 11.6 L Hct 32.0 L MCV 95.5 MCH 34.5 H MCHC 36.1 H RDW 13.7 Plt Count 207 Neut % (Auto) 30.6 L Lymph % (Auto) 53.0 H [place] % (Auto) 4.5 Eos % (Auto) 10.9 H Baso % (Auto) 1.0 Neut # (Auto) 1000 L Lymph # (Auto) 1800 [place] # (Auto) 200 Eos # (Auto) 400 Baso # (Auto) 0 ESR PT 13.0 H INR 1.1 APTT 35 Sodium 118 L* Potassium 3.3 L Chloride 84 L Carbon Dioxide 22 BUN 9 Creatinine 0.87 Estimated GFR > 60 BUN/Creatinine Ratio 10.3 Glucose 109 H Lactate Calcium 8.8 Ferritin Total Bilirubin 0.8 AST 127 H ALT 37 Alkaline Phosphatase 49 Lactate Dehydrogenase Total Creatine Kinase CK-MB (CK-2) CK-MB (CK-2) Rel Index Troponin I C-Reactive Protein Total Protein 7.9 Albumin 4.7 Globulin 3.2 Albumin/Globulin Ratio 1.5 Procalcitonin TSH Chlamy pneumoniae PCR Adenovirus (PCR) B. pertussis DNA (PCR) B.parapertussis DNA PCR Coronavirus OC43 (PCR) Coronavirus HKU1 (PCR) Coronavirus 229E (PCR) SARS-CoV-2 (PCR) Coronavirus NL63 (PCR) Human Metapneumovir PCR Influenza Type A (PCR) Influenza Type B (PCR) M. pneumoniae (PCR) Parainfluenza 1 (PCR) Parainfluenza 2 (PCR) Parainfluenza 3 (PCR) Parainfluenza 4 (PCR) RSV (PCR) Entero/Rhino (PCR) Blood Type Antibody Screen 07/20/22 07/20/22 07/20/22 10:00 10:00 10:00 WBC RBC Hgb Hct MCV MCH MCHC RDW Plt Count Neut % (Auto) Lymph % (Auto) [place] % (Auto) Eos % (Auto) Baso % (Auto) Neut # (Auto) Lymph # (Auto) [place] # (Auto) Eos # (Auto) Baso # (Auto) ESR PT INR APTT Sodium Potassium Chloride Carbon Dioxide BUN Creatinine Estimated GFR BUN/Creatinine Ratio Glucose Lactate 1.5 Calcium Ferritin Total Bilirubin AST ALT Alkaline Phosphatase Lactate Dehydrogenase Total Creatine Kinase 2298 H D CK-MB (CK-2) 12.40 H CK-MB (CK-2) Rel Index 0.5 L Troponin I < 0.012 C-Reactive Protein Total Protein Albumin Globulin Albumin/Globulin Ratio Procalcitonin TSH Chlamy pneumoniae PCR Adenovirus (PCR) B. pertussis DNA (PCR) B.parapertussis DNA PCR Coronavirus OC43 (PCR) Coronavirus HKU1 (PCR) Coronavirus 229E (PCR) SARS-CoV-2 (PCR) Coronavirus NL63 (PCR) Human Metapneumovir PCR Influenza Type A (PCR) Influenza Type B (PCR) M. pneumoniae (PCR) Parainfluenza 1 (PCR) Parainfluenza 2 (PCR) Parainfluenza 3 (PCR) Parainfluenza 4 (PCR) RSV (PCR) Entero/Rhino (PCR) Blood Type A Positive Antibody Screen Negative 07/20/22 07/20/22 07/20/22 10:00 10:00 10:00 WBC RBC Hgb Hct MCV MCH MCHC RDW Plt Count Neut % (Auto) Lymph % (Auto) [place] % (Auto) Eos % (Auto) Baso % (Auto) Neut # (Auto) Lymph # (Auto) [place] # (Auto) Eos # (Auto) Baso # (Auto) ESR 12 PT INR APTT Sodium Potassium Chloride Carbon Dioxide BUN Creatinine Estimated GFR BUN/Creatinine Ratio Glucose Lactate Calcium Ferritin Total Bilirubin AST ALT Alkaline Phosphatase Lactate Dehydrogenase Total Creatine Kinase CK-MB (CK-2) CK-MB (CK-2) Rel Index Troponin I C-Reactive Protein Total Protein Albumin Globulin Albumin/Globulin Ratio Procalcitonin 0.04 TSH 3.59 Chlamy pneumoniae PCR Adenovirus (PCR) B. pertussis DNA (PCR) B.parapertussis DNA PCR Coronavirus OC43 (PCR) Coronavirus HKU1 (PCR) Coronavirus 229E (PCR) SARS-CoV-2 (PCR) Coronavirus NL63 (PCR) Human Metapneumovir PCR Influenza Type A (PCR) Influenza Type B (PCR) M. pneumoniae (PCR) Parainfluenza 1 (PCR) Parainfluenza 2 (PCR) Parainfluenza 3 (PCR) Parainfluenza 4 (PCR) RSV (PCR) Entero/Rhino (PCR) Blood Type Antibody Screen 07/20/22 07/20/22 07/20/22 10:00 10:00 10:46 WBC RBC Hgb Hct MCV MCH MCHC RDW Plt Count Neut % (Auto) Lymph % (Auto) [place] % (Auto) Eos % (Auto) Baso % (Auto) Neut # (Auto) Lymph # (Auto) [place] # (Auto) Eos # (Auto) Baso # (Auto) ESR PT INR APTT Sodium Potassium Chloride Carbon Dioxide BUN Creatinine Estimated GFR BUN/Creatinine Ratio Glucose Lactate Calcium Ferritin 574 H Total Bilirubin AST ALT Alkaline Phosphatase Lactate Dehydrogenase 771 H Total Creatine Kinase CK-MB (CK-2) CK-MB (CK-2) Rel Index Troponin I C-Reactive Protein < 0.5 Total Protein Albumin Globulin Albumin/Globulin Ratio Procalcitonin TSH Chlamy pneumoniae PCR Not detected Adenovirus (PCR) Not detected B. pertussis DNA (PCR) Not detected B.parapertussis DNA PCR Not detected Coronavirus OC43 (PCR) Not detected Coronavirus HKU1 (PCR) Not detected Coronavirus 229E (PCR) Not detected SARS-CoV-2 (PCR) Not detected Coronavirus NL63 (PCR) Not detected Human Metapneumovir PCR Not detected Influenza Type A (PCR) Not detected Influenza Type B (PCR) Not detected M. pneumoniae (PCR) Not detected Parainfluenza 1 (PCR) Not detected Parainfluenza 2 (PCR) Not detected Parainfluenza 3 (PCR) Not detected Parainfluenza 4 (PCR) Not detected RSV (PCR) Not detected Entero/Rhino (PCR) Not detected Blood Type Antibody Screen Assessment & Plan Assessment & Plan narrative: Assessment: Syncope Hyponatremia Neutropenia Generalized weakness elevated CPK Plan CLINICAL SUPPORT ASSOCIATE: Head CT neg. Honor would like to order EEG to rule out seizure but EEG not available at [facility] -monitor of any seizure like activity -consider brain MRI CV: BP improved after IVF Heme/ID:Procal neg, blood culture from 07/13 neg, CXR neg -davis culture -consider starting empiric antibiotics for now till results of infectious work-up come back neg -consult Heme/onc for bone marrow biopsy FEN/Renal: -repeat chemistires after IVF bolus, if Na improved with IVF then hyponatremia probably from dehydration and can continue with IVF -check SIADH labs -if Na unchanged or worse after IVFm then this is most likely to be from SIADH in which case will free water restrict and start 3% at 15 cc/hr and monito Q4-Q6 H and titrate 3% for Na rate correction of about 6 mEq per 24 hour period Endo: check am Cortisol level Prophylaxis: SQ heparin CCT spent 60 min Time Spent With Patient Critical Care time: I spent a total of [] minutes of critical care time on this patient's care today; this time is exclusive of procedural time.
--- NOTE | 2022-07-20 13:36 | DI.RAD.S_ITS ---
PROCEDURE: XR CHEST 1V INDICATIONS: post right IJ TECHNIQUE: One view of the chest was acquired. COMPARISON: [facility], CR, XR CHEST 1V, 07/13/2022, 10:23. FINDINGS: Surgical changes and devices: Right IJ terminates in the right atrium. Lungs and pleura: Lungs are clear. No pleural effusions or pneumothorax. Mediastinum: Mediastinal contours appear normal. Heart size is normal. Bones and chest wall: No suspicious bony lesions. Overlying soft tissues appear unremarkable. IMPRESSION: Right IJ terminates in the right atrium. Dictated by: Frederick Nash M.D. on 07/20/2022 at 13:49 Approved by: Frederick Nash M.D. on 07/20/2022 at 13:50
--- NOTE | 2022-07-20 14:07 | DI.MRI.S_ITS ---
PROCEDURE: MR HEAD/BRAIN WO/W CON INDICATIONS: confusion, hyponatremia, evidence of mass? TECHNIQUE: Noncontrast axial T1 spin echo, axial T2 fast spin echo, sagittal and axial FLAIR, coronal T2 fast spin echo, axial gradient echo, axial diffusion and ADC through the brain. After the administration of contrast, axial and coronal and sagittal 3D VIBE or T1 spin echo with fat saturation through the brain. COMPARISON: [facility], CT, CT HEAD/BRAIN WO CON, 07/20/2022, 12:40. FINDINGS: Image quality: Excellent. CSF Spaces: Basal cisterns are patent. No extra-axial fluid collections. Ventricles are normal in size and shape. Brain: No midline shift. No intracranial bleeds or masses. No abnormal intracranial enhancement. The brainstem appears normal. Diffusion-weighted images demonstrate no acute ischemic insults. No chronic ischemic insults. Normal intravascular flow voids are present. Skull and face: Calvarial marrow is normal in signal. Orbits appear normal. Sinuses: Sinuses and mastoids appear clear. IMPRESSION: No findings of acute or subacute infarction can be seen. No masses or abnormal enhancement can be seen. Dictated by: Soham Ferreira M.D. on 07/20/2022 at 14:48 Approved by: Soham Ferreira M.D. on 07/20/2022 at 14:49
[2022-07-20 14:31] LABS: Free T3, Triiodothyronine Free 0.69 pg/mL (2.77-5.27); Free T4, Direct Thyroxine < 0.07 ng/dL (0.78-2.19)
[2022-07-20 15:51] LABS: BUN Creatinine Ratio 10.4 (6-22); Blood Urea Nitrogen 8 mg/dL (9-20); Calcium 8.2 mg/dL (8.4-10.2); Carbon Dioxide 24 mmol/L (22-32); Chloride 84 mmol/L (98-107); Estimated Glomerular Filt Rate > 60 mL/min (>60); Glucose 63 mg/dL (70-100); HEMOLYSIS < 15 (0-50); Potassium 4.6 mmol/L (3.4-5.1)
[2022-07-20 15:55] LABS: Sodium 117 mmol/L (137-145)
[2022-07-20 16:27] LABS: Cortisol Random 1.44 ug/dL
[2022-07-20] MEDS: CEFEPIME 1 GM in SODIUM CHLORIDE 0.9% 100 ML IV (16:35)
[2022-07-20] MEDS: LEVOTHYROXINE INJ 100 MCG/5 ML VIAL 75 MCG IV (16:36)
[2022-07-20] MEDS: HYDROCORTISONE 100 MG/2 ML VIAL IV ×2 (16:38→22:27)
[2022-07-20] MEDS: ACETAMINOPHEN 325 MG TABLET 650 MG PO (18:00)
--- NOTE | 2022-07-20 18:07 | PC.NURSE ---
Addendum entered by Sylwia Tran R.N. 07/20/22 18:28: Pt Glucose level 63 per lab value, notified provider and had pt drink apple juice, rechecked CBG level at 89. Critical lab value of Sodium of 117, updated provider, no new orders at this time, serial recheck at 1800. Original Note: 1400 Pt arrived from ED via gurney, he was able to scoot onto bed, connected to monitoring equipment, assisted to change into gown, urine sample given and sent to lab, tele shows SB, with BBB, RA with SpO2 99-100%. Fluids infusing to R central line as ordered, PIV SL. Oriented to room and call light system, bed alarm on for safety. Bed low and locked, call light within reach, will continue to monitor.
[2022-07-20 19:06] LABS: HIV 1 & 2 Ab/Ag 4th Gen Combo NEGATIVE (NEGATIVE)
[2022-07-20 19:17] LABS: BUN Creatinine Ratio 11.6 (6-22); Blood Urea Nitrogen 8 mg/dL (9-20); Calcium 7.9 mg/dL (8.4-10.2); Carbon Dioxide 23 mmol/L (22-32); Chloride 85 mmol/L (98-107); Estimated Glomerular Filt Rate > 60 mL/min (>60); Glucose 122 mg/dL (70-100); HEMOLYSIS < 15 (0-50); Potassium 4.2 mmol/L (3.4-5.1)
[2022-07-20 19:24] LABS: Creatine Kinase 2129 U/L (55-170)
[2022-07-20 19:32] LABS: Sodium 116 mmol/L (137-145)
--- NOTE | 2022-07-20 20:21 | PM.ICURNDS ---
- Date Patient Seen: 07/20/22 Time Patient Seen: 20:21 :: This patient was seen via real time interactive two-way audiovisual telecommunication. Note: Admitted for hyponatremia and generalized weakness. Na 118 and continues to downtrend despite with fluids. Clinically appears hypovolemia per RN report with no evidence of pitting edema and on room air. Will order 500 mL LR bolus and increase NS 150cc/hr. If Na continues to worsen then will need hypertonic saline and fluid restriction. D/w patient and RN at bedside.
[2022-07-20] MEDS: LACTATED RINGERS 500 ML IV (20:41)
[2022-07-20 21:19] LABS: Appearance Urine UA CLEAR; Bilirubin Urine UA NEGATIVE (NEGATIVE); Color Urine UA YELLOW; Glucose Urine UA NEGATIVE (Negative); Ketones Urine UA NEGATIVE (NEGATIVE); Leukocyte Esterase Urine UA NEGATIVE (NEGATIVE); Nitrite Urine UA NEGATIVE (Negative); Occult Blood Urine UA NEGATIVE (Negative); Protein Urine UA NEGATIVE (Negative); Specific Gravity Urine UA <=1.005 (1.000-1.035); Urobilinogen Urine UA 0.2 E.U./dL (0.2); pH Urine UA 6.5 (4.5-8.0)
[2022-07-20 21:34] LABS: Bacteria Urine None Seen; Culture Indicated Urine Cult Not Indicated; RBC Urine None Seen (0-5/HPF); WBC Urine None Seen (0-5/HPF)
[2022-07-20 22:18] LABS: Sodium Urine Random 45 mmol/L (30-90)
[2022-07-20 23:11] LABS: BUN Creatinine Ratio 10.4 (6-22); Blood Urea Nitrogen 7 mg/dL (9-20); Calcium 8.3 mg/dL (8.4-10.2); Carbon Dioxide 25 mmol/L (22-32); Chloride 89 mmol/L (98-107); Estimated Glomerular Filt Rate > 60 mL/min (>60); Glucose 95 mg/dL (70-100); HEMOLYSIS < 15 (0-50); Potassium 4.3 mmol/L (3.4-5.1)
[2022-07-20 23:14] LABS: Sodium 119 mmol/L (137-145)
[2022-07-20] MEDS: SODIUM CHLORIDE 0.9% 1,000 ML 150 ML IV (23:58)
[2022-07-21] VITALS (56 sets, daily range): BP systolic 71–119; BP diastolic 48–77; PULSE 61–103; RESP 4–22; TEMP 36.3–37.1; O2SAT 86–97
[2022-07-21 02:27] LABS: BUN Creatinine Ratio 9.3 (6-22); Blood Urea Nitrogen 7 mg/dL (9-20); Calcium 8.4 mg/dL (8.4-10.2); Carbon Dioxide 25 mmol/L (22-32); Chloride 91 mmol/L (98-107); Estimated Glomerular Filt Rate > 60 mL/min (>60); Glucose 100 mg/dL (70-100); HEMOLYSIS < 15 (0-50); Potassium 4.4 mmol/L (3.4-5.1); Sodium 122 mmol/L (137-145)
[2022-07-21] MEDS: CEFEPIME 1 GM in SODIUM CHLORIDE 0.9% 100 ML IV ×2 (04:29→13:58)
[2022-07-21] MEDS: HYDROCORTISONE 100 MG/2 ML VIAL IV ×3 (05:03→21:05)
[2022-07-21] MEDS: SODIUM CHLORIDE 0.9% 1,000 ML 150 ML IV (05:05)
--- NOTE | 2022-07-21 05:26 | PC.NURSE ---
Addendum entered by Charisse Gotti R.N. 07/21/22 07:17: Patient hypotensive this am 71/51 (57) HR 70, BP responded to leg raise challenge 95/61 (73) HR 70. Notified Katherine PRASAD and Dr. Epps, see new orders by Dr. Epps. Gave NS 250ml bolus and albumin ordered. Report given to day shift RN. Original Note: End of shift note. Patient has been AAOX4, did not sleep well. Using call light to make needs known, needs assist to reposition and use urinal at bedside. Denies pain. O2 Sats 94% on RA. Has been NSR 72. SBP 80s with MAP 63-66. Q4hr BMPs, trending Na, provider notified, continue with NWS 150ml/hr. Patient voiding via urinal, has had >2500 out this shift, provider updated. BS have been WNL.
[2022-07-21 06:13] LABS: BUN Creatinine Ratio 9.6 (6-22); Blood Urea Nitrogen 7 mg/dL (9-20); Calcium 8.2 mg/dL (8.4-10.2); Carbon Dioxide 22 mmol/L (22-32); Chloride 96 mmol/L (98-107); Creatine Kinase 2142 U/L (55-170); Estimated Glomerular Filt Rate > 60 mL/min (>60); Glucose 110 mg/dL (70-100); HEMOLYSIS < 15 (0-50); Potassium 4.6 mmol/L (3.4-5.1); Sodium 126 mmol/L (137-145)
[2022-07-21 06:21] LABS: Cortisol AM (Before 10AM) 60.8 ug/dL (4.46-22.7)
[2022-07-21 06:25] LABS: Add Manual Diff / Slide Review NO; Basophils Absolute Auto 0 /uL (0-100); Basophils Percent Auto 0.2 % (0-2); Eosinophils Absolute Auto 0 /uL (0-450); Eosinophils Percent Auto 0.4 % (2-4); Hematocrit 29.1 % (41-53); Hemoglobin 10.3 g/dL (13.5-17.5); Lymphocytes Absolute Auto 300 /uL (1100-4500); Lymphocytes Percent Auto 8.6 % (25-40); Mean Corpuscular HGB Conc 35.5 % (30-36); Mean Corpuscular Hemoglobin 33.8 PG (26-34); Mean Corpuscular Volume 95.2 fL (80-100); Monocytes Absolute Auto 0 /uL (0-900); Monocytes Percent Auto 1.2 % (3-14); Neutrophils Absolute Auto 2900 /uL (1500-7000); Neutrophils Percent Auto 89.6 % (50-75); Platelet Count 168 X10^3/uL (150-400); Red Blood Cell Count 3.05 X10^6/uL (4.5-5.9); Red Cell Distribution Width 13.7 % (11.6-14.8); White Blood Cell Count 3.2 X10^3/uL (4.5-11.0)
[2022-07-21] MEDS: SODIUM CHLORIDE 0.9% 250 ML 1000 ML IV (06:55)
--- NOTE | 2022-07-21 07:15 | PM.PN.EICU ---
Subjective Subjective IF CAMERA ACTIVATED, patient seen via real-time interactive audiovisual communication: Camera activated Consent obtained for tele-sales special agent care: Yes Patient Location: ICU Provider location (State): [place] Other participants/roles: nurse, hospitalist Interval history: Patient Summary: 56 yo man with PMH of hypothyroidism and iron deficiency anemia presented 07/20 with generalyzed weakness several weeks and syncope and found to have hyponatremia, Neutropenia, and hypotension. Infectious work-up so far neg. CT of head/chest/abd/pelvis showed no evidence of malignancy. TSH is within normal limits. Random Cortisol level was 1.44 so patient was started on Hydrocortisone. Patient given Normal saline and BP and Na improved. Recent events: Overnight patient's BP low at times but responded to NS boluses. In Last 24 hours, patient has gotten 4.5 L in and put out 3.2 L of urine with net 1.3 L positive. This morning his BP dropped again and his leg tilt test suggested he may still respond to volume and therefore Patient given albumin 25% 100 cc and NS 250 cc bolus. -Na this morning was 126 so patient's maintenance IVF was switched from NS to 1/2 NS to prevent rapid correction of hyponatremia -brain MRI neg for any mass Current Medications Current Medications Medications: Home Medications No Known Home Medications 07/20/22 [History Confirmed 07/20/22] Visit Medications (administered) Generic Name Dose Route Start Last Admin Trade Name Freq PRN Reason Stop Dose Admin Acetaminophen 650 mg 07/20/22 14:06 07/20/22 18:00 Acetaminophen 325 Mg Tablet PO 650 mg Q6HR PRN Administration Fever/Mild Pain (1-3) Heparin Sodium (Porcine) 50 unit 07/20/22 21:00 07/21/22 05:10 Heparin Flush (Cl/Picc/Mid-Line) 50 Unit/5 Ml Syringe IV 50 unit BID NAINA Administration Hydrocortisone 100 mg 07/20/22 15:55 07/21/22 05:03 Hydrocortisone 100 Mg/2 Ml Vial IV 100 mg Q8HR NAINA Administration Cefepime HCl 1 gm/ Sodium 100 mls @ 200 mls/hr 07/20/22 14:15 07/21/22 05:04 Chloride IV Infused Q12H NAINA Infusion Objective Labs Result Diagrams: 07/21/22 05:00 07/21/22 05:00 Labs: Laboratory Results - last 24 hr 07/20/22 07/20/22 07/20/22 10:00 10:00 10:00 WBC 3.3 L RBC 3.35 L Hgb 11.6 L Hct 32.0 L MCV 95.5 MCH 34.5 H MCHC 36.1 H RDW 13.7 Plt Count 207 Neut % (Auto) 30.6 L Lymph % (Auto) 53.0 H [place] % (Auto) 4.5 Eos % (Auto) 10.9 H Baso % (Auto) 1.0 Neut # (Auto) 1000 L Lymph # (Auto) 1800 [place] # (Auto) 200 Eos # (Auto) 400 Baso # (Auto) 0 ESR PT 13.0 H INR 1.1 APTT 35 Sodium 118 L* Potassium 3.3 L Chloride 84 L Carbon Dioxide 22 BUN 9 Creatinine 0.87 Estimated GFR > 60 BUN/Creatinine Ratio 10.3 Glucose 109 H Lactate Calcium 8.8 Ferritin Total Bilirubin 0.8 AST 127 H ALT 37 Alkaline Phosphatase 49 Lactate Dehydrogenase Total Creatine Kinase CK-MB (CK-2) CK-MB (CK-2) Rel Index Troponin I C-Reactive Protein Total Protein 7.9 Albumin 4.7 Globulin 3.2 Albumin/Globulin Ratio 1.5 Procalcitonin TSH Free T4 Free T3 Random Cortisol Cortisol AM Sample Urine Color Urine Appearance Urine pH Ur Specific [place] Urine Protein Urine Glucose (UA) Urine Ketones Urine Occult Blood Urine Nitrate Urine Bilirubin Urine Urobilinogen Ur Leukocyte Esterase Urine RBC Urine WBC Urine Bacteria Ur Culture Indicated? Ur Random Sodium Nasal Screen MRSA (PCR) Chlamy pneumoniae PCR Adenovirus (PCR) B. pertussis DNA (PCR) B.parapertussis DNA PCR Coronavirus OC43 (PCR) Coronavirus HKU1 (PCR) Coronavirus 229E (PCR) SARS-CoV-2 (PCR) Coronavirus NL63 (PCR) HIV 1&2 Ab/P24 Ag 4thGn Human Metapneumovir PCR Influenza Type A (PCR) Influenza Type B (PCR) M. pneumoniae (PCR) Parainfluenza 1 (PCR) Parainfluenza 2 (PCR) Parainfluenza 3 (PCR) Parainfluenza 4 (PCR) RSV (PCR) Entero/Rhino (PCR) Blood Type Antibody Screen 07/20/22 07/20/22 07/20/22 10:00 10:00 10:00 WBC RBC Hgb Hct MCV MCH MCHC RDW Plt Count Neut % (Auto) Lymph % (Auto) [place] % (Auto) Eos % (Auto) Baso % (Auto) Neut # (Auto) Lymph # (Auto) [place] # (Auto) Eos # (Auto) Baso # (Auto) ESR PT INR APTT Sodium Potassium Chloride Carbon Dioxide BUN Creatinine Estimated GFR BUN/Creatinine Ratio Glucose Lactate 1.5 Calcium Ferritin Total Bilirubin AST ALT Alkaline Phosphatase Lactate Dehydrogenase Total Creatine Kinase 2298 H D CK-MB (CK-2) 12.40 H CK-MB (CK-2) Rel Index 0.5 L Troponin I < 0.012 C-Reactive Protein Total Protein Albumin Globulin Albumin/Globulin Ratio Procalcitonin TSH Free T4 Free T3 Random Cortisol Cortisol AM Sample Urine Color Urine Appearance Urine pH Ur Specific [place] Urine Protein Urine Glucose (UA) Urine Ketones Urine Occult Blood Urine Nitrate Urine Bilirubin Urine Urobilinogen Ur Leukocyte Esterase Urine RBC Urine WBC Urine Bacteria Ur Culture Indicated? Ur Random Sodium Nasal Screen MRSA (PCR) Chlamy pneumoniae PCR Adenovirus (PCR) B. pertussis DNA (PCR) B.parapertussis DNA PCR Coronavirus OC43 (PCR) Coronavirus HKU1 (PCR) Coronavirus 229E (PCR) SARS-CoV-2 (PCR) Coronavirus NL63 (PCR) HIV 1&2 Ab/P24 Ag 4thGn Human Metapneumovir PCR Influenza Type A (PCR) Influenza Type B (PCR) M. pneumoniae (PCR) Parainfluenza 1 (PCR) Parainfluenza 2 (PCR) Parainfluenza 3 (PCR) Parainfluenza 4 (PCR) RSV (PCR) Entero/Rhino (PCR) Blood Type A Positive Antibody Screen Negative 07/20/22 07/20/22 07/20/22 10:00 10:00 10:00 WBC RBC Hgb Hct MCV MCH MCHC RDW Plt Count Neut % (Auto) Lymph % (Auto) [place] % (Auto) Eos % (Auto) Baso % (Auto) Neut # (Auto) Lymph # (Auto) [place] # (Auto) Eos # (Auto) Baso # (Auto) ESR 12 PT INR APTT Sodium Potassium Chloride Carbon Dioxide BUN Creatinine Estimated GFR BUN/Creatinine Ratio Glucose Lactate Calcium Ferritin Total Bilirubin AST ALT Alkaline Phosphatase Lactate Dehydrogenase Total Creatine Kinase CK-MB (CK-2) CK-MB (CK-2) Rel Index Troponin I C-Reactive Protein Total Protein Albumin Globulin Albumin/Globulin Ratio Procalcitonin 0.04 TSH 3.59 Free T4 < 0.07 L Free T3 0.69 L Random Cortisol Cortisol AM Sample Urine Color Urine Appearance Urine pH Ur Specific [place] Urine Protein Urine Glucose (UA) Urine Ketones Urine Occult Blood Urine Nitrate Urine Bilirubin Urine Urobilinogen Ur Leukocyte Esterase Urine RBC Urine WBC Urine Bacteria Ur Culture Indicated? Ur Random Sodium Nasal Screen MRSA (PCR) Chlamy pneumoniae PCR Adenovirus (PCR) B. pertussis DNA (PCR) B.parapertussis DNA PCR Coronavirus OC43 (PCR) Coronavirus HKU1 (PCR) Coronavirus 229E (PCR) SARS-CoV-2 (PCR) Coronavirus NL63 (PCR) HIV 1&2 Ab/P24 Ag 4thGn Human Metapneumovir PCR Influenza Type A (PCR) Influenza Type B (PCR) M. pneumoniae (PCR) Parainfluenza 1 (PCR) Parainfluenza 2 (PCR) Parainfluenza 3 (PCR) Parainfluenza 4 (PCR) RSV (PCR) Entero/Rhino (PCR) Blood Type Antibody Screen 07/20/22 07/20/22 07/20/22 10:00 10:00 10:46 WBC RBC Hgb Hct MCV MCH MCHC RDW Plt Count Neut % (Auto) Lymph % (Auto) [place] % (Auto) Eos % (Auto) Baso % (Auto) Neut # (Auto) Lymph # (Auto) [place] # (Auto) Eos # (Auto) Baso # (Auto) ESR PT INR APTT Sodium Potassium Chloride Carbon Dioxide BUN Creatinine Estimated GFR BUN/Creatinine Ratio Glucose Lactate Calcium Ferritin 574 H Total Bilirubin AST ALT Alkaline Phosphatase Lactate Dehydrogenase 771 H Total Creatine Kinase CK-MB (CK-2) CK-MB (CK-2) Rel Index Troponin I C-Reactive Protein < 0.5 Total Protein Albumin Globulin Albumin/Globulin Ratio Procalcitonin TSH Free T4 Free T3 Random Cortisol Cortisol AM Sample Urine Color Urine Appearance Urine pH Ur Specific [place] Urine Protein Urine Glucose (UA) Urine Ketones Urine Occult Blood Urine Nitrate Urine Bilirubin Urine Urobilinogen Ur Leukocyte Esterase Urine RBC Urine WBC Urine Bacteria Ur Culture Indicated? Ur Random Sodium Nasal Screen MRSA (PCR) Chlamy pneumoniae PCR Not detected Adenovirus (PCR) Not detected B. pertussis DNA (PCR) Not detected B.parapertussis DNA PCR Not detected Coronavirus OC43 (PCR) Not detected Coronavirus HKU1 (PCR) Not detected Coronavirus 229E (PCR) Not detected SARS-CoV-2 (PCR) Not detected Coronavirus NL63 (PCR) Not detected HIV 1&2 Ab/P24 Ag 4thGn Human Metapneumovir PCR Not detected Influenza Type A (PCR) Not detected Influenza Type B (PCR) Not detected M. pneumoniae (PCR) Not detected Parainfluenza 1 (PCR) Not detected Parainfluenza 2 (PCR) Not detected Parainfluenza 3 (PCR) Not detected Parainfluenza 4 (PCR) Not detected RSV (PCR) Not detected Entero/Rhino (PCR) Not detected Blood Type Antibody Screen 07/20/22 07/20/22 07/20/22 14:21 15:12 15:12 WBC RBC Hgb Hct MCV MCH MCHC RDW Plt Count Neut % (Auto) Lymph % (Auto) [place] % (Auto) Eos % (Auto) Baso % (Auto) Neut # (Auto) Lymph # (Auto) [place] # (Auto) Eos # (Auto) Baso # (Auto) ESR PT INR APTT Sodium 117 L* Potassium 4.6 D Chloride 84 L Carbon Dioxide 24 BUN 8 L Creatinine 0.77 Estimated GFR > 60 BUN/Creatinine Ratio 10.4 Glucose 63 L Lactate Calcium 8.2 L Ferritin Total Bilirubin AST ALT Alkaline Phosphatase Lactate Dehydrogenase Total Creatine Kinase CK-MB (CK-2) CK-MB (CK-2) Rel Index Troponin I C-Reactive Protein Total Protein Albumin Globulin Albumin/Globulin Ratio Procalcitonin TSH Free T4 Free T3 Random Cortisol Cortisol AM Sample Urine Color Urine Appearance Urine pH Ur Specific [place] Urine Protein Urine Glucose (UA) Urine Ketones Urine Occult Blood Urine Nitrate Urine Bilirubin Urine Urobilinogen Ur Leukocyte Esterase Urine RBC Urine WBC Urine Bacteria Ur Culture Indicated? Ur Random Sodium Nasal Screen MRSA (PCR) Negative for mrsa Chlamy pneumoniae PCR Adenovirus (PCR) B. pertussis DNA (PCR) B.parapertussis DNA PCR Coronavirus OC43 (PCR) Coronavirus HKU1 (PCR) Coronavirus 229E (PCR) SARS-CoV-2 (PCR) Coronavirus NL63 (PCR) HIV 1&2 Ab/P24 Ag 4thGn Negative Human Metapneumovir PCR Influenza Type A (PCR) Influenza Type B (PCR) M. pneumoniae (PCR) Parainfluenza 1 (PCR) Parainfluenza 2 (PCR) Parainfluenza 3 (PCR) Parainfluenza 4 (PCR) RSV (PCR) Entero/Rhino (PCR) Blood Type Antibody Screen 07/20/22 07/20/22 07/20/22 15:31 18:40 18:40 WBC RBC Hgb Hct MCV MCH MCHC RDW Plt Count Neut % (Auto) Lymph % (Auto) [place] % (Auto) Eos % (Auto) Baso % (Auto) Neut # (Auto) Lymph # (Auto) [place] # (Auto) Eos # (Auto) Baso # (Auto) ESR PT INR APTT Sodium 116 L* Potassium 4.2 Chloride 85 L Carbon Dioxide 23 BUN 8 L Creatinine 0.69 Estimated GFR > 60 BUN/Creatinine Ratio 11.6 Glucose 122 H Lactate Calcium 7.9 L Ferritin Total Bilirubin AST ALT Alkaline Phosphatase Lactate Dehydrogenase Total Creatine Kinase 2129 H CK-MB (CK-2) CK-MB (CK-2) Rel Index Troponin I C-Reactive Protein Total Protein Albumin Globulin Albumin/Globulin Ratio Procalcitonin TSH Free T4 Free T3 Random Cortisol 1.44 Cortisol AM Sample Urine Color Urine Appearance Urine pH Ur Specific [place] Urine Protein Urine Glucose (UA) Urine Ketones Urine Occult Blood Urine Nitrate Urine Bilirubin Urine Urobilinogen Ur Leukocyte Esterase Urine RBC Urine WBC Urine Bacteria Ur Culture Indicated? Ur Random Sodium Nasal Screen MRSA (PCR) Chlamy pneumoniae PCR Adenovirus (PCR) B. pertussis DNA (PCR) B.parapertussis DNA PCR Coronavirus OC43 (PCR) Coronavirus HKU1 (PCR) Coronavirus 229E (PCR) SARS-CoV-2 (PCR) Coronavirus NL63 (PCR) HIV 1&2 Ab/P24 Ag 4thGn Human Metapneumovir PCR Influenza Type A (PCR) Influenza Type B (PCR) M. pneumoniae (PCR) Parainfluenza 1 (PCR) Parainfluenza 2 (PCR) Parainfluenza 3 (PCR) Parainfluenza 4 (PCR) RSV (PCR) Entero/Rhino (PCR) Blood Type Antibody Screen 07/20/22 07/20/22 07/20/22 20:49 22:35 Unknown WBC RBC Hgb Hct MCV MCH MCHC RDW Plt Count Neut % (Auto) Lymph % (Auto) [place] % (Auto) Eos % (Auto) Baso % (Auto) Neut # (Auto) Lymph # (Auto) [place] # (Auto) Eos # (Auto) Baso # (Auto) ESR PT INR APTT Sodium 119 L* Potassium 4.3 Chloride 89 L Carbon Dioxide 25 BUN 7 L Creatinine 0.67 Estimated GFR > 60 BUN/Creatinine Ratio 10.4 Glucose 95 Lactate Calcium 8.3 L Ferritin Total Bilirubin AST ALT Alkaline Phosphatase Lactate Dehydrogenase Total Creatine Kinase CK-MB (CK-2) CK-MB (CK-2) Rel Index Troponin I C-Reactive Protein Total Protein Albumin Globulin Albumin/Globulin Ratio Procalcitonin TSH Free T4 Free T3 Random Cortisol Cortisol AM Sample Urine Color Yellow Urine Appearance Clear Urine pH 6.5 Ur Specific [place] <=1.005 Urine Protein Negative Urine Glucose (UA) Negative Urine Ketones Negative Urine Occult Blood Negative Urine Nitrate Negative Urine Bilirubin Negative Urine Urobilinogen 0.2 Ur Leukocyte Esterase Negative Urine RBC None seen Urine WBC None seen Urine Bacteria None seen Ur Culture Indicated? Cult not indicated Ur Random Sodium 45 Nasal Screen MRSA (PCR) Chlamy pneumoniae PCR Adenovirus (PCR) B. pertussis DNA (PCR) B.parapertussis DNA PCR Coronavirus OC43 (PCR) Coronavirus HKU1 (PCR) Coronavirus 229E (PCR) SARS-CoV-2 (PCR) Coronavirus NL63 (PCR) HIV 1&2 Ab/P24 Ag 4thGn Human Metapneumovir PCR Influenza Type A (PCR) Influenza Type B (PCR) M. pneumoniae (PCR) Parainfluenza 1 (PCR) Parainfluenza 2 (PCR) Parainfluenza 3 (PCR) Parainfluenza 4 (PCR) RSV (PCR) Entero/Rhino (PCR) Blood Type Antibody Screen 07/21/22 07/21/22 07/21/22 02:07 05:00 05:00 WBC 3.2 L RBC 3.05 L Hgb 10.3 L Hct 29.1 L MCV 95.2 MCH 33.8 MCHC 35.5 RDW 13.7 Plt Count 168 Neut % (Auto) 89.6 H D Lymph % (Auto) 8.6 L D [place] % (Auto) 1.2 L Eos % (Auto) 0.4 L Baso % (Auto) 0.2 Neut # (Auto) 2900 Lymph # (Auto) 300 L [place] # (Auto) 0 Eos # (Auto) 0 Baso # (Auto) 0 ESR PT INR APTT Sodium 122 L 126 L Potassium 4.4 4.6 Chloride 91 L 96 L Carbon Dioxide 25 22 BUN 7 L 7 L Creatinine 0.75 0.73 Estimated GFR > 60 > 60 BUN/Creatinine Ratio 9.3 9.6 Glucose 100 110 H Lactate Calcium 8.4 8.2 L Ferritin Total Bilirubin AST ALT Alkaline Phosphatase Lactate Dehydrogenase Total Creatine Kinase 2142 H CK-MB (CK-2) CK-MB (CK-2) Rel Index Troponin I C-Reactive Protein Total Protein Albumin Globulin Albumin/Globulin Ratio Procalcitonin TSH Free T4 Free T3 Random Cortisol Cortisol AM Sample 60.8 H Urine Color Urine Appearance Urine pH Ur Specific [place] Urine Protein Urine Glucose (UA) Urine Ketones Urine Occult Blood Urine Nitrate Urine Bilirubin Urine Urobilinogen Ur Leukocyte Esterase Urine RBC Urine WBC Urine Bacteria Ur Culture Indicated? Ur Random Sodium Nasal Screen MRSA (PCR) Chlamy pneumoniae PCR Adenovirus (PCR) B. pertussis DNA (PCR) B.parapertussis DNA PCR Coronavirus OC43 (PCR) Coronavirus HKU1 (PCR) Coronavirus 229E (PCR) SARS-CoV-2 (PCR) Coronavirus NL63 (PCR) HIV 1&2 Ab/P24 Ag 4thGn Human Metapneumovir PCR Influenza Type A (PCR) Influenza Type B (PCR) M. pneumoniae (PCR) Parainfluenza 1 (PCR) Parainfluenza 2 (PCR) Parainfluenza 3 (PCR) Parainfluenza 4 (PCR) RSV (PCR) Entero/Rhino (PCR) Blood Type Antibody Screen Exam Vital Signs (past 8 hours): - 07/21/22 00:00 07/21/22 00:00 07/21/22 00:00 Temperature Pulse Rate 65 Respiratory Rate 18 9 L Blood Pressure 98/67 Pulse Oximetry 93 97 Oxygen Flow Rate 07/21/22 00:00 07/21/22 01:00 07/21/22 01:02 Temperature 97.7 F Pulse Rate 69 65 Respiratory Rate 14 11 L Blood Pressure Pulse Oximetry 95 94 Oxygen Flow Rate 07/21/22 01:02 07/21/22 02:00 07/21/22 02:00 Temperature Pulse Rate 67 Respiratory Rate 12 Blood Pressure 95/64 88/61 L Pulse Oximetry 95 Oxygen Flow Rate 07/21/22 03:00 07/21/22 03:00 07/21/22 03:30 Temperature Pulse Rate 65 68 Respiratory Rate 7 L 10 L Blood Pressure 81/56 L 82/54 L Pulse Oximetry 93 90 L Oxygen Flow Rate 07/21/22 03:38 07/21/22 03:30 07/21/22 03:30 Temperature Pulse Rate 68 67 Respiratory Rate 10 L 8 L Blood Pressure 87/57 L 82/54 L Pulse Oximetry 95 86 L Oxygen Flow Rate 0 07/21/22 03:38 07/21/22 03:38 07/21/22 04:00 Temperature Pulse Rate 68 Respiratory Rate 8 L Blood Pressure 87/57 L 91/61 Pulse Oximetry 96 Oxygen Flow Rate 07/21/22 04:00 07/21/22 04:30 07/21/22 04:30 Temperature Pulse Rate 66 68 Respiratory Rate 6 L 7 L Blood Pressure 80/61 L Pulse Oximetry 95 96 Oxygen Flow Rate 07/21/22 06:18 07/21/22 06:00 07/21/22 05:00 Temperature Pulse Rate 70 70 Respiratory Rate 12 12 Blood Pressure 95/61 71/51 L 83/57 L Pulse Oximetry 94 94 Oxygen Flow Rate 07/21/22 05:00 07/21/22 05:30 07/21/22 05:30 Temperature Pulse Rate 66 70 Respiratory Rate 9 L 9 L Blood Pressure 82/54 L Pulse Oximetry 94 96 Oxygen Flow Rate 07/21/22 06:00 07/21/22 06:00 07/21/22 06:07 Temperature Pulse Rate 70 73 Respiratory Rate 4 L 5 L Blood Pressure 71/51 L Pulse Oximetry 95 96 Oxygen Flow Rate 07/21/22 06:07 07/21/22 06:19 07/21/22 06:19 Temperature Pulse Rate 73 Respiratory Rate 10 L Blood Pressure 82/53 L 95/61 Pulse Oximetry 95 Oxygen Flow Rate Oxygen Delivery Method Room Air Oxygen Flow Rate 0 Assessment & Plan Assessment & Plan narrative: Assessment: Syncope Hyponatremia Neutropenia Generalized weakness elevated CPK 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 Stevinson would like to order EEG to rule out seizure but EEG not available at [facility] -monitor for any seizure like activity CV: -start midodrine 10 mg TID for hypotension Heme/ID:Procal neg, blood culture from 07/13 neg, CXR neg -davis culture -continue cefepime for empiric coverage for now -consult Heme/onc for bone marrow biopsy FEN/Renal: -monitor Na q4-6 hours and aim for Na rate of correction of about 6 mEq/24 hours (today will aim for a goal Na of 122-126) -continue 1/2 Ns at 100 cc/hr for now Endo: random cortisol was low at 1.44 -continue hydrocortisone Prophylaxis: SQ heparin CCT spent 45 min Time Spent With Patient Critical Care time: I spent a total of [] minutes of critical care time on this patient's care today; this time is exclusive of procedural time.
[2022-07-21] MEDS: ALBUMIN HUMAN 25 GM/100 ML VIAL IV ×2 (07:22→12:04)
[2022-07-21] MEDS: SODIUM CHLORIDE 0.45% 1,000 ML 100 ML IV (07:22)
[2022-07-21] MEDS: MIDODRINE HCL 5 MG TABLET 10 MG PO ×3 (07:50→18:34)
--- NOTE | 2022-07-21 08:19 | DI.ECHO.S_ITS ---
[facility] +---------+ : : [address] : : : : [id number] : : : : Phone: [phone] Echocardiogram Report + + :Name: CHRISTIAN JOE Study Date: 07/21/2022 Height: 73 in : :[facility] ReadingLocation: Weight: 158 lb : : Gender: Male BSA: 1.9 m2 : :: 1965 Age: 56 yrs BP: 103/73 mmHg: :Reason For Study: HYPOTENSION, ANASARCA, CARDIOMYOPATHY : :Ordering Physician: TALYA BERNSTEIN V : : Performed By: Melissa Martins : :Referring: TALYA BERNSTEIN MD : + + Interpretation Summary The patient was in sinus rhythm with heart rates between 67-83 bpm during the exam. The left ventricle is normal in size and wall thickness. The ejection fraction is estimated to be 60-65%. Diastolic parameters suggest probable normal left ventricular diastolic function and normal filling pressures. There is mild mitral regurgitation. There is mild tricuspid regurgitation. The right ventricular systolic pressure is estimated to be at least 28 mmHg based on an estimated right atrial pressure of 8 mm Hg. There is a trivial to small pericardial effusion noted. No prior study for comparison. Procedure: A two-dimensional transthoracic echocardiogram with color flow and Doppler was performed. The study quality was technically adequate. There is no prior echocardiogram noted for this patient. The patient was in sinus rhythm with heart rates between 67-83 bpm during the exam. Left Ventricle: The left ventricle is normal in size and wall thickness. The ejection fraction is estimated to be 60-65%. Diastolic parameters suggest probable normal left ventricular diastolic function and normal filling pressures. Right Ventricle: The right ventricle is normal in size and function. Atria: The left atrial size is normal. Right atrial size is normal. There is no Doppler evidence for an interatrial shunt. Mitral Valve: The mitral valve is normal in structure and function. There is mild mitral regurgitation. Aortic Valve: The aortic valve is trileaflet. The aortic valve opens well. There is no aortic valve stenosis. No aortic regurgitation is present. Tricuspid Valve: The tricuspid valve is normal in structure and function. There is mild tricuspid regurgitation. The right ventricular systolic pressure is estimated to be at least 28 mmHg based on an estimated right atrial pressure of 8 mm Hg. Pulmonic Valve: The pulmonic valve leaflets are thin and pliable; valve motion is normal. There is no pulmonic valvular regurgitation. Great Vessels: The aortic root is normal size. The dimensions of the ascending aorta are normal. The IVC is dilated (diameter is greater than 2.1 cm) yet it collapses greater than 50% with a sniff. This suggests a right atrial pressure of 8 mm Hg. Pericardium/ Pleura There is a trivial to small pericardial effusion noted. There is no pleural effusion. MMode/2D Measurements & Calculations LVIDd: 4.8 cm LVOT diam: 2.1 cm LVIDs: 3.1 cm Ao root diam: 3.2 cm FS: 35.0 % asc Aorta Diam: 3.2 cm EPSS: 0.75 cm Ao Arch Diam (Prox Trans): 3.0 cm IVSd: 0.74 cm LVPWd: 0.80 cm LV coffman. diameter/BSA (cm/m^2): 2.4 LV sys. diameter/BSA (cm/m^2): 1.6 LA A2 area: 19.9 cm2 RA long axis: 4.8 cm LA A4 area: 17.5 cm2 RA area: 15.9 cm2 LA length (vol): 4.9 cm RA vol: 44.8 ml LA vol: 59.7 ml RA : 23.0 ml/m2 LA vol index: 30.7 ml/m2 IVC diam: 2.5 cm RVD1 (basal): 3.2 cm RVD2 (mid): 2.7 cm TAPSE: 2.0 cm Doppler Measurements & Calculations Ao V2 max: 103.7 cm/sec LVOT Max Star: 91.1 cm/sec Ao V2 mean: 77.8 cm/sec LV V1 max P.3 mmHg Ao max P.3 mmHg LV V1 VTI: 18.1 cm Ao mean P.6 mmHg ELVIS(I,D): 2.8 cm2 Ao V2 VTI: 21.9 cm ELVIS(V,D): 3.0 cm2 sev ratio: 0.82 ELVIS indexed to BSA (cm^2/m^2): 1.4 MV E max star: 91.0 cm/sec TR max star: 223.1 cm/sec MV A max star: 64.1 cm/sec TR max P.9 mmHg MV E/A: 1.4 PA V2 max: 82.7 cm/sec Med Peak E' Star: 6.7 cm/sec PA V2 mean: 58.2 cm/sec E/E' med: 13.6 PA mean P.5 mmHg Lat Peak E' Star: 6.2 cm/sec PA pr(Accel): 41.3 mmHg E/E' lat: 14.7 E/e' average: 14.2 MV dec time: 0.20 sec SV(LVOT): 61.4 ml Reading Physician:CHYNA
[2022-07-21] MEDS: ENOXAPARIN 40 MG/0.4 ML SYRINGE SUBCUT (08:24)
--- NOTE | 2022-07-21 08:38 | P.PN_ITS ---
Subjective Subjective Interval history: He is not feeling nauseated. However is feeling slow in that he thinks low and talks slow. Has no pain. No fever or chills. No diaphoresis. No chest pain. No palpitations. No shortness of breath or wheezing. No abdominal pain. Able to move all extremities volitionally. Exam Vital Signs (past 8 hours): - 07/21/22 01:00 07/21/22 01:02 07/21/22 01:02 Temperature Pulse Rate 69 65 Respiratory Rate 14 11 L Blood Pressure 95/64 Pulse Oximetry 95 94 Oxygen Flow Rate 07/21/22 02:00 07/21/22 02:00 07/21/22 03:00 Temperature Pulse Rate 67 Respiratory Rate 12 Blood Pressure 88/61 L 81/56 L Pulse Oximetry 95 Oxygen Flow Rate 07/21/22 03:00 07/21/22 03:30 07/21/22 03:38 Temperature Pulse Rate 65 68 68 Respiratory Rate 7 L 10 L 10 L Blood Pressure 82/54 L 87/57 L Pulse Oximetry 93 90 L 95 Oxygen Flow Rate 0 07/21/22 03:30 07/21/22 03:30 07/21/22 03:38 Temperature Pulse Rate 67 Respiratory Rate 8 L Blood Pressure 82/54 L 87/57 L Pulse Oximetry 86 L Oxygen Flow Rate 07/21/22 03:38 07/21/22 04:00 07/21/22 04:00 Temperature Pulse Rate 68 66 Respiratory Rate 8 L 6 L Blood Pressure 91/61 Pulse Oximetry 96 95 Oxygen Flow Rate 07/21/22 04:30 07/21/22 04:30 07/21/22 06:18 Temperature Pulse Rate 68 70 Respiratory Rate 7 L 12 Blood Pressure 80/61 L 95/61 Pulse Oximetry 96 94 Oxygen Flow Rate 07/21/22 06:00 07/21/22 05:00 07/21/22 05:00 Temperature Pulse Rate 70 66 Respiratory Rate 12 9 L Blood Pressure 71/51 L 83/57 L Pulse Oximetry 94 94 Oxygen Flow Rate 07/21/22 05:30 07/21/22 05:30 07/21/22 06:00 Temperature Pulse Rate 70 Respiratory Rate 9 L Blood Pressure 82/54 L 71/51 L Pulse Oximetry 96 Oxygen Flow Rate 07/21/22 06:00 07/21/22 06:07 07/21/22 06:07 Temperature Pulse Rate 70 73 Respiratory Rate 4 L 5 L Blood Pressure 82/53 L Pulse Oximetry 95 96 Oxygen Flow Rate 07/21/22 06:19 07/21/22 06:19 07/21/22 07:52 Temperature 98.7 F Pulse Rate 73 69 Respiratory Rate 10 L 11 L Blood Pressure 95/61 93/59 L Pulse Oximetry 95 95 Oxygen Flow Rate 0 07/21/22 07:00 07/21/22 07:31 07/21/22 07:31 Temperature Pulse Rate 70 70 Respiratory Rate 8 L 9 L Blood Pressure 93/59 L Pulse Oximetry 92 96 Oxygen Flow Rate 07/21/22 07:34 07/21/22 07:34 07/21/22 08:00 Temperature Pulse Rate 73 Respiratory Rate 9 L Blood Pressure 100/62 88/62 L Pulse Oximetry 96 Oxygen Flow Rate 07/21/22 08:00 07/21/22 08:30 07/21/22 08:30 Temperature Pulse Rate 70 69 Respiratory Rate 10 L 9 L Blood Pressure 90/58 L Pulse Oximetry 96 96 Oxygen Flow Rate Oxygen Delivery Method Room Air Oxygen Flow Rate 0 Narrative Exam Narrative: GEN: very pale and weak appearing HEENT: PERRL, moist mucous membranes. NECK: trachea midline, no JVD, no lymphadenopathy noted CV: regular rate and rhythm, no murmurs PULM: clear bilaterally, no wheezes, rhonchi, rales ABD: soft, nontender, nondistended, no organomegaly, normal bowel sounds EXT: warm and well perfused with no edema NEURO: awake, alert, oriented,? slow to respond SKIN: Very pale. Almost a slight yellow tinge color to face. Objective Labs Result Diagrams: 07/21/22 05:00 07/21/22 05:00 Labs: Laboratory Results - last 24 hr 07/20/22 07/20/22 07/20/22 10:00 10:00 10:00 WBC 3.3 L RBC 3.35 L Hgb 11.6 L Hct 32.0 L MCV 95.5 MCH 34.5 H MCHC 36.1 H RDW 13.7 Plt Count 207 Neut % (Auto) 30.6 L Lymph % (Auto) 53.0 H Waldo % (Auto) 4.5 Eos % (Auto) 10.9 H Baso % (Auto) 1.0 Neut # (Auto) 1000 L Lymph # (Auto) 1800 Waldo # (Auto) 200 Eos # (Auto) 400 Baso # (Auto) 0 ESR PT 13.0 H INR 1.1 APTT 35 Sodium 118 L* Potassium 3.3 L Chloride 84 L Carbon Dioxide 22 BUN 9 Creatinine 0.87 Estimated GFR > 60 BUN/Creatinine Ratio 10.3 Glucose 109 H Lactate Calcium 8.8 Ferritin Total Bilirubin 0.8 AST 127 H ALT 37 Alkaline Phosphatase 49 Lactate Dehydrogenase Total Creatine Kinase CK-MB (CK-2) CK-MB (CK-2) Rel Index Troponin I C-Reactive Protein Total Protein 7.9 Albumin 4.7 Globulin 3.2 Albumin/Globulin Ratio 1.5 Procalcitonin TSH Free T4 Free T3 Random Cortisol Cortisol AM Sample Urine Color Urine Appearance Urine pH Ur Specific [place] Urine Protein Urine Glucose (UA) Urine Ketones Urine Occult Blood Urine Nitrate Urine Bilirubin Urine Urobilinogen Ur Leukocyte Esterase Urine RBC Urine WBC Urine Bacteria Ur Culture Indicated? Ur Random Sodium Nasal Screen MRSA (PCR) Chlamy pneumoniae PCR Adenovirus (PCR) B. pertussis DNA (PCR) B.parapertussis DNA PCR Coronavirus OC43 (PCR) Coronavirus HKU1 (PCR) Coronavirus 229E (PCR) SARS-CoV-2 (PCR) Coronavirus NL63 (PCR) HIV 1&2 Ab/P24 Ag 4thGn Human Metapneumovir PCR Influenza Type A (PCR) Influenza Type B (PCR) M. pneumoniae (PCR) Parainfluenza 1 (PCR) Parainfluenza 2 (PCR) Parainfluenza 3 (PCR) Parainfluenza 4 (PCR) RSV (PCR) Entero/Rhino (PCR) Blood Type Antibody Screen 07/20/22 07/20/22 07/20/22 10:00 10:00 10:00 WBC RBC Hgb Hct MCV MCH MCHC RDW Plt Count Neut % (Auto) Lymph % (Auto) Waldo % (Auto) Eos % (Auto) Baso % (Auto) Neut # (Auto) Lymph # (Auto) Waldo # (Auto) Eos # (Auto) Baso # (Auto) ESR PT INR APTT Sodium Potassium Chloride Carbon Dioxide BUN Creatinine Estimated GFR BUN/Creatinine Ratio Glucose Lactate 1.5 Calcium Ferritin Total Bilirubin AST ALT Alkaline Phosphatase Lactate Dehydrogenase Total Creatine Kinase 2298 H D CK-MB (CK-2) 12.40 H CK-MB (CK-2) Rel Index 0.5 L Troponin I < 0.012 C-Reactive Protein Total Protein Albumin Globulin Albumin/Globulin Ratio Procalcitonin TSH Free T4 Free T3 Random Cortisol Cortisol AM Sample Urine Color Urine Appearance Urine pH Ur Specific [place] Urine Protein Urine Glucose (UA) Urine Ketones Urine Occult Blood Urine Nitrate Urine Bilirubin Urine Urobilinogen Ur Leukocyte Esterase Urine RBC Urine WBC Urine Bacteria Ur Culture Indicated? Ur Random Sodium Nasal Screen MRSA (PCR) Chlamy pneumoniae PCR Adenovirus (PCR) B. pertussis DNA (PCR) B.parapertussis DNA PCR Coronavirus OC43 (PCR) Coronavirus HKU1 (PCR) Coronavirus 229E (PCR) SARS-CoV-2 (PCR) Coronavirus NL63 (PCR) HIV 1&2 Ab/P24 Ag 4thGn Human Metapneumovir PCR Influenza Type A (PCR) Influenza Type B (PCR) M. pneumoniae (PCR) Parainfluenza 1 (PCR) Parainfluenza 2 (PCR) Parainfluenza 3 (PCR) Parainfluenza 4 (PCR) RSV (PCR) Entero/Rhino (PCR) Blood Type A Positive Antibody Screen Negative 07/20/22 07/20/22 07/20/22 10:00 10:00 10:00 WBC RBC Hgb Hct MCV MCH MCHC RDW Plt Count Neut % (Auto) Lymph % (Auto) Waldo % (Auto) Eos % (Auto) Baso % (Auto) Neut # (Auto) Lymph # (Auto) Waldo # (Auto) Eos # (Auto) Baso # (Auto) ESR 12 PT INR APTT Sodium Potassium Chloride Carbon Dioxide BUN Creatinine Estimated GFR BUN/Creatinine Ratio Glucose Lactate Calcium Ferritin Total Bilirubin AST ALT Alkaline Phosphatase Lactate Dehydrogenase Total Creatine Kinase CK-MB (CK-2) CK-MB (CK-2) Rel Index Troponin I C-Reactive Protein Total Protein Albumin Globulin Albumin/Globulin Ratio Procalcitonin 0.04 TSH 3.59 Free T4 < 0.07 L Free T3 0.69 L Random Cortisol Cortisol AM Sample Urine Color Urine Appearance Urine pH Ur Specific [place] Urine Protein Urine Glucose (UA) Urine Ketones Urine Occult Blood Urine Nitrate Urine Bilirubin Urine Urobilinogen Ur Leukocyte Esterase Urine RBC Urine WBC Urine Bacteria Ur Culture Indicated? Ur Random Sodium Nasal Screen MRSA (PCR) Chlamy pneumoniae PCR Adenovirus (PCR) B. pertussis DNA (PCR) B.parapertussis DNA PCR Coronavirus OC43 (PCR) Coronavirus HKU1 (PCR) Coronavirus 229E (PCR) SARS-CoV-2 (PCR) Coronavirus NL63 (PCR) HIV 1&2 Ab/P24 Ag 4thGn Human Metapneumovir PCR Influenza Type A (PCR) Influenza Type B (PCR) M. pneumoniae (PCR) Parainfluenza 1 (PCR) Parainfluenza 2 (PCR) Parainfluenza 3 (PCR) Parainfluenza 4 (PCR) RSV (PCR) Entero/Rhino (PCR) Blood Type Antibody Screen 07/20/22 07/20/22 07/20/22 10:00 10:00 10:46 WBC RBC Hgb Hct MCV MCH MCHC RDW Plt Count Neut % (Auto) Lymph % (Auto) Waldo % (Auto) Eos % (Auto) Baso % (Auto) Neut # (Auto) Lymph # (Auto) Waldo # (Auto) Eos # (Auto) Baso # (Auto) ESR PT INR APTT Sodium Potassium Chloride Carbon Dioxide BUN Creatinine Estimated GFR BUN/Creatinine Ratio Glucose Lactate Calcium Ferritin 574 H Total Bilirubin AST ALT Alkaline Phosphatase Lactate Dehydrogenase 771 H Total Creatine Kinase CK-MB (CK-2) CK-MB (CK-2) Rel Index Troponin I C-Reactive Protein < 0.5 Total Protein Albumin Globulin Albumin/Globulin Ratio Procalcitonin TSH Free T4 Free T3 Random Cortisol Cortisol AM Sample Urine Color Urine Appearance Urine pH Ur Specific [place] Urine Protein Urine Glucose (UA) Urine Ketones Urine Occult Blood Urine Nitrate Urine Bilirubin Urine Urobilinogen Ur Leukocyte Esterase Urine RBC Urine WBC Urine Bacteria Ur Culture Indicated? Ur Random Sodium Nasal Screen MRSA (PCR) Chlamy pneumoniae PCR Not detected Adenovirus (PCR) Not detected B. pertussis DNA (PCR) Not detected B.parapertussis DNA PCR Not detected Coronavirus OC43 (PCR) Not detected Coronavirus HKU1 (PCR) Not detected Coronavirus 229E (PCR) Not detected SARS-CoV-2 (PCR) Not detected Coronavirus NL63 (PCR) Not detected HIV 1&2 Ab/P24 Ag 4thGn Human Metapneumovir PCR Not detected Influenza Type A (PCR) Not detected Influenza Type B (PCR) Not detected M. pneumoniae (PCR) Not detected Parainfluenza 1 (PCR) Not detected Parainfluenza 2 (PCR) Not detected Parainfluenza 3 (PCR) Not detected Parainfluenza 4 (PCR) Not detected RSV (PCR) Not detected Entero/Rhino (PCR) Not detected Blood Type Antibody Screen 07/20/22 07/20/22 07/20/22 14:21 15:12 15:12 WBC RBC Hgb Hct MCV MCH MCHC RDW Plt Count Neut % (Auto) Lymph % (Auto) [place] % (Auto) Eos % (Auto) Baso % (Auto) Neut # (Auto) Lymph # (Auto) [place] # (Auto) Eos # (Auto) Baso # (Auto) ESR PT INR APTT Sodium 117 L* Potassium 4.6 D Chloride 84 L Carbon Dioxide 24 BUN 8 L Creatinine 0.77 Estimated GFR > 60 BUN/Creatinine Ratio 10.4 Glucose 63 L Lactate Calcium 8.2 L Ferritin Total Bilirubin AST ALT Alkaline Phosphatase Lactate Dehydrogenase Total Creatine Kinase CK-MB (CK-2) CK-MB (CK-2) Rel Index Troponin I C-Reactive Protein Total Protein Albumin Globulin Albumin/Globulin Ratio Procalcitonin TSH Free T4 Free T3 Random Cortisol Cortisol AM Sample Urine Color Urine Appearance Urine pH Ur Specific [place] Urine Protein Urine Glucose (UA) Urine Ketones Urine Occult Blood Urine Nitrate Urine Bilirubin Urine Urobilinogen Ur Leukocyte Esterase Urine RBC Urine WBC Urine Bacteria Ur Culture Indicated? Ur Random Sodium Nasal Screen MRSA (PCR) Negative for mrsa Chlamy pneumoniae PCR Adenovirus (PCR) B. pertussis DNA (PCR) B.parapertussis DNA PCR Coronavirus OC43 (PCR) Coronavirus HKU1 (PCR) Coronavirus 229E (PCR) SARS-CoV-2 (PCR) Coronavirus NL63 (PCR) HIV 1&2 Ab/P24 Ag 4thGn Negative Human Metapneumovir PCR Influenza Type A (PCR) Influenza Type B (PCR) M. pneumoniae (PCR) Parainfluenza 1 (PCR) Parainfluenza 2 (PCR) Parainfluenza 3 (PCR) Parainfluenza 4 (PCR) RSV (PCR) Entero/Rhino (PCR) Blood Type Antibody Screen 07/20/22 07/20/22 07/20/22 15:31 18:40 18:40 WBC RBC Hgb Hct MCV MCH MCHC RDW Plt Count Neut % (Auto) Lymph % (Auto) [place] % (Auto) Eos % (Auto) Baso % (Auto) Neut # (Auto) Lymph # (Auto) [place] # (Auto) Eos # (Auto) Baso # (Auto) ESR PT INR APTT Sodium 116 L* Potassium 4.2 Chloride 85 L Carbon Dioxide 23 BUN 8 L Creatinine 0.69 Estimated GFR > 60 BUN/Creatinine Ratio 11.6 Glucose 122 H Lactate Calcium 7.9 L Ferritin Total Bilirubin AST ALT Alkaline Phosphatase Lactate Dehydrogenase Total Creatine Kinase 2129 H CK-MB (CK-2) CK-MB (CK-2) Rel Index Troponin I C-Reactive Protein Total Protein Albumin Globulin Albumin/Globulin Ratio Procalcitonin TSH Free T4 Free T3 Random Cortisol 1.44 Cortisol AM Sample Urine Color Urine Appearance Urine pH Ur Specific [place] Urine Protein Urine Glucose (UA) Urine Ketones Urine Occult Blood Urine Nitrate Urine Bilirubin Urine Urobilinogen Ur Leukocyte Esterase Urine RBC Urine WBC Urine Bacteria Ur Culture Indicated? Ur Random Sodium Nasal Screen MRSA (PCR) Chlamy pneumoniae PCR Adenovirus (PCR) B. pertussis DNA (PCR) B.parapertussis DNA PCR Coronavirus OC43 (PCR) Coronavirus HKU1 (PCR) Coronavirus 229E (PCR) SARS-CoV-2 (PCR) Coronavirus NL63 (PCR) HIV 1&2 Ab/P24 Ag 4thGn Human Metapneumovir PCR Influenza Type A (PCR) Influenza Type B (PCR) M. pneumoniae (PCR) Parainfluenza 1 (PCR) Parainfluenza 2 (PCR) Parainfluenza 3 (PCR) Parainfluenza 4 (PCR) RSV (PCR) Entero/Rhino (PCR) Blood Type Antibody Screen 07/20/22 07/20/22 07/20/22 20:49 22:35 Unknown WBC RBC Hgb Hct MCV MCH MCHC RDW Plt Count Neut % (Auto) Lymph % (Auto) [place] % (Auto) Eos % (Auto) Baso % (Auto) Neut # (Auto) Lymph # (Auto) [place]do # (Auto) Eos # (Auto) Baso # (Auto) ESR PT INR APTT Sodium 119 L* Potassium 4.3 Chloride 89 L Carbon Dioxide 25 BUN 7 L Creatinine 0.67 Estimated GFR > 60 BUN/Creatinine Ratio 10.4 Glucose 95 Lactate Calcium 8.3 L Ferritin Total Bilirubin AST ALT Alkaline Phosphatase Lactate Dehydrogenase Total Creatine Kinase CK-MB (CK-2) CK-MB (CK-2) Rel Index Troponin I C-Reactive Protein Total Protein Albumin Globulin Albumin/Globulin Ratio Procalcitonin TSH Free T4 Free T3 Random Cortisol Cortisol AM Sample Urine Color Yellow Urine Appearance Clear Urine pH 6.5 Ur Specific [place] <=1.005 Urine Protein Negative Urine Glucose (UA) Negative Urine Ketones Negative Urine Occult Blood Negative Urine Nitrate Negative Urine Bilirubin Negative Urine Urobilinogen 0.2 Ur Leukocyte Esterase Negative Urine RBC None seen Urine WBC None seen Urine Bacteria None seen Ur Culture Indicated? Cult not indicated Ur Random Sodium 45 Nasal Screen MRSA (PCR) Chlamy pneumoniae PCR Adenovirus (PCR) B. pertussis DNA (PCR) B.parapertussis DNA PCR Coronavirus OC43 (PCR) Coronavirus HKU1 (PCR) Coronavirus 229E (PCR) SARS-CoV-2 (PCR) Coronavirus NL63 (PCR) HIV 1&2 Ab/P24 Ag 4thGn Human Metapneumovir PCR Influenza Type A (PCR) Influenza Type B (PCR) M. pneumoniae (PCR) Parainfluenza 1 (PCR) Parainfluenza 2 (PCR) Parainfluenza 3 (PCR) Parainfluenza 4 (PCR) RSV (PCR) Entero/Rhino (PCR) Blood Type Antibody Screen 07/21/22 07/21/22 07/21/22 02:07 05:00 05:00 WBC 3.2 L RBC 3.05 L Hgb 10.3 L Hct 29.1 L MCV 95.2 MCH 33.8 MCHC 35.5 RDW 13.7 Plt Count 168 Neut % (Auto) 89.6 H D Lymph % (Auto) 8.6 L D Waldo % (Auto) 1.2 L Eos % (Auto) 0.4 L Baso % (Auto) 0.2 Neut # (Auto) 2900 Lymph # (Auto) 300 L Waldo # (Auto) 0 Eos # (Auto) 0 Baso # (Auto) 0 ESR PT INR APTT Sodium 122 L 126 L Potassium 4.4 4.6 Chloride 91 L 96 L Carbon Dioxide 25 22 BUN 7 L 7 L Creatinine 0.75 0.73 Estimated GFR > 60 > 60 BUN/Creatinine Ratio 9.3 9.6 Glucose 100 110 H Lactate Calcium 8.4 8.2 L Ferritin Total Bilirubin AST ALT Alkaline Phosphatase Lactate Dehydrogenase Total Creatine Kinase 2142 H CK-MB (CK-2) CK-MB (CK-2) Rel Index Troponin I C-Reactive Protein Total Protein Albumin Globulin Albumin/Globulin Ratio Procalcitonin TSH Free T4 Free T3 Random Cortisol Cortisol AM Sample 60.8 H Urine Color Urine Appearance Urine pH Ur Specific [place] Urine Protein Urine Glucose (UA) Urine Ketones Urine Occult Blood Urine Nitrate Urine Bilirubin Urine Urobilinogen Ur Leukocyte Esterase Urine RBC Urine WBC Urine Bacteria Ur Culture Indicated? Ur Random Sodium Nasal Screen MRSA (PCR) Chlamy pneumoniae PCR Adenovirus (PCR) B. pertussis DNA (PCR) B.parapertussis DNA PCR Coronavirus OC43 (PCR) Coronavirus HKU1 (PCR) Coronavirus 229E (PCR) SARS-CoV-2 (PCR) Coronavirus NL63 (PCR) HIV 1&2 Ab/P24 Ag 4thGn Human Metapneumovir PCR Influenza Type A (PCR) Influenza Type B (PCR) M. pneumoniae (PCR) Parainfluenza 1 (PCR) Parainfluenza 2 (PCR) Parainfluenza 3 (PCR) Parainfluenza 4 (PCR) RSV (PCR) Entero/Rhino (PCR) Blood Type Antibody Screen [facility] Social History household members: none Smoking Status: Current every day smoker alcohol intake: current Assessment & Plan Assessment & Plan narrative: 1. Acute hyponatremia Improved. 126 this morning after a decrease of following presentation. Per pilot boat deckhand intravenous fluid has been changed to half-normal ceiling to stabilize increase in sodium. 2. Acute hypotension Supporting with intravenous fluids and midodrine, hydrocortisone due to low cortisol level. Full culture workup is still pending. 3. Neutropenia, acute and history of iron deficiency anemia To complete workup need a Hematology/Oncology consult and bone marrow biopsy. 4. Anasarca with small pericardial, and pleural effusions and intra-abdominal fluid Goal has been initially to support hyponatremia, initially gave intravenous levothyroxine due to history of hypothyroidism, and support low cortisol level with hydrocortisone. As well intravenous albumin given. CT of head/chest/abd /pelvis showed no evidence of malignancy. 5. Elevated CK Trending down. Will continue to follow. Cancers of the bladder, prostate and testes can elevate CK and should be ruled out. Continue to follow-up blood tests and patient clinically. CODE: Full Proxy: Gilmer Spicer, father Time Spent With Patient Critical Care time: I spent a total of [] minutes of critical care time on this patient's care today; this time is exclusive of procedural time.
[2022-07-21 09:15] LABS: Sodium 128 mmol/L (137-145)
--- NOTE | 2022-07-21 09:31 | CM.DANOTE ---
Patient is a 56 yo male who was admitted on 07/20/22 for Found Down. Pt has No Insurance and No PCP. EMR was reviewed. Per MD, pt with acute hyponatremia, hypotension, neutropenia. Per RN, pt's sodium levels are still off. 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 Pt denies having any local family and limited friends and states his accounts payable manager actually brought him to the ED. Pt denies any hx of HH or SNF. Per AD Counselors, pt financially over qualified for [facility] and missed open enrollment for healthcare and was given [facility] application. SW discussed he may be able to submit his hospital bill and missing work towards applying for Medicaid and pt agreeable to looking into this. Pt speaks slowly but seems to be alert and oriented x3 at baseline. Pt confirms he has no PCP as he has been relatively healthy and the $200 a month for basic healthcare insurance seemed too expensive since I did not have any real medical needs. Pt now aware he could benefit from health insurance and establishing with PCP for ongoing outpt f/u. Plan: SW to follow closely for likely pt d/c home via friend or coworker POV and HH a barrier as pt does not have insurance. SW to follow for any further identified discharge planning needs. NANCY Christensen Discharge Planning/Care Management CM Discharge Assessment Start: 07/21/22 09:29 Freq: Status: Active Protocol: Document 07/21/22 09:29 BF (Rec: 07/21/22 09:31 [id number]) Discharge Planning Assessment Assigned Mold Polisher NANCY Subramanian DPOA/Assigned Designee Name Informally father Gilmer Spicer Advance Directives? No Advance Directives on File No History Provided By Patient,Medical Record Has Patient been admitted in last 30 No days? Prior Living Arrangements Apartment/Condo Household Members none Comment Rents a room in his landlords house Type of transporation used prior to Drives own vehicle admit Independent with ADL's Yes Is patient alert and oriented? Yes Caregiver for Another No Comment Follow for needs Barriers to Discharge Yes Comment No insurance, over qualified for [facility] and missed open enrollement Discharge Plan Home Transportation Arrangement Likely coworker or friend Referrals Initiated None needed Additional Comment Due to lack of insurance Whiteboard Updated in Patient Room with Yes name and ext. # of Mold Polisher Review Status In Process Please Provide Date Initial DC 07/21/22 Assessment Was Performed Next Review Type Continued Stay Review
[2022-07-21] MEDS: DEXTROSE 5% WATER 1,000 ML 75 ML IV (10:05)
[2022-07-21 10:30] LABS: BUN Creatinine Ratio 9.2 (6-22); Blood Urea Nitrogen 7 mg/dL (9-20); Calcium 8.6 mg/dL (8.4-10.2); Carbon Dioxide 23 mmol/L (22-32); Chloride 98 mmol/L (98-107); Estimated Glomerular Filt Rate > 60 mL/min (>60); Glucose 111 mg/dL (70-100); HEMOLYSIS 26 (0-50); Potassium 4.8 mmol/L (3.4-5.1); Sodium 128 mmol/L (137-145)
[2022-07-21] MEDS: LACTATED RINGERS 500 ML 1000 ML IV (11:59)
[2022-07-21 13:21] LABS: Sodium 130 mmol/L (137-145)
[2022-07-21] MEDS: DEXTROSE 5% WATER 1,000 ML 100 ML IV ×3 (13:59→17:15)
[2022-07-21] MEDS: DESMOPRESSIN 4 MCG/ML AMPUL 1 MCG IV (14:01)
[2022-07-21 15:21] LABS: Osmolality Urine 505 mOsmol/kg (.)
[2022-07-21] MEDS: NOREPINEPHRINE BITARTRATE/D5W 4 MG/250 ML PLAST..BAG 30 MG IV (16:20)
[2022-07-21 17:25] LABS: BUN Creatinine Ratio 11.5 (6-22); Blood Urea Nitrogen 10 mg/dL (9-20); Calcium 8.4 mg/dL (8.4-10.2); Carbon Dioxide 24 mmol/L (22-32); Chloride 95 mmol/L (98-107); Estimated Glomerular Filt Rate > 60 mL/min (>60); Glucose 187 mg/dL (70-100); HEMOLYSIS < 15 (0-50); Potassium 4.3 mmol/L (3.4-5.1); Sodium 129 mmol/L (137-145)
--- NOTE | 2022-07-21 19:14 | PM.EVENT ---
Event Note Event Note (Rapid Response, Code, or fall): Repeat Na came back 129. Increased D5W to 200 mL/hr and continue trending Na every 4 hours. D/w RN.
[2022-07-21] MEDS: DEXTROSE 5% WATER 1,000 ML 200 ML IV (20:03)
--- NOTE | 2022-07-21 20:23 | PM.ICURNDS ---
- Date Patient Seen: 07/21/22 Time Patient Seen: 20:23 :: This patient was seen via real time interactive two-way audiovisual telecommunication. Note: Started on levophed 4 mcg and increased D5W to 200 mL/hr to seek goal Na 121. Patient reports feeling better overall. Will continue trending Na level every 4 hours. D/w patient and RN at bedside.
[2022-07-21 21:41] LABS: BUN Creatinine Ratio 11.9 (6-22); Blood Urea Nitrogen 10 mg/dL (9-20); Calcium 8.3 mg/dL (8.4-10.2); Carbon Dioxide 25 mmol/L (22-32); Chloride 93 mmol/L (98-107); Estimated Glomerular Filt Rate > 60 mL/min (>60); Glucose 249 mg/dL (70-100); HEMOLYSIS < 15 (0-50); Sodium 125 mmol/L (137-145)
[2022-07-22] VITALS (49 sets, daily range): BP systolic 91–128; BP diastolic 60–87; PULSE 58–86; RESP 8–19; TEMP 36.2–36.6; O2SAT 92–97
[2022-07-22 01:59] LABS: BUN Creatinine Ratio 10.3 (6-22); Blood Urea Nitrogen 8 mg/dL (9-20); Calcium 8.3 mg/dL (8.4-10.2); Carbon Dioxide 25 mmol/L (22-32); Chloride 91 mmol/L (98-107); Estimated Glomerular Filt Rate > 60 mL/min (>60); Glucose 206 mg/dL (70-100); HEMOLYSIS < 15 (0-50); Potassium 3.8 mmol/L (3.4-5.1); Sodium 125 mmol/L (137-145)
[2022-07-22] MEDS: CEFEPIME 1 GM in SODIUM CHLORIDE 0.9% 100 ML IV ×2 (03:06→15:11)
[2022-07-22 05:52] LABS: Add Manual Diff / Slide Review NO; Basophils Absolute Auto 0 /uL (0-100); Basophils Percent Auto 0.4 % (0-2); Eosinophils Absolute Auto 0 /uL (0-450); Hematocrit 23.5 % (41-53); Hemoglobin 8.3 g/dL (13.5-17.5); Lymphocytes Absolute Auto 400 /uL (1100-4500); Lymphocytes Percent Auto 4.8 % (25-40); Mean Corpuscular HGB Conc 35.2 % (30-36); Mean Corpuscular Hemoglobin 34.1 PG (26-34); Monocytes Absolute Auto 100 /uL (0-900); Monocytes Percent Auto 1.6 % (3-14); Neutrophils Absolute Auto 7400 /uL (1500-7000); Neutrophils Percent Auto 93.2 % (50-75); Platelet Count 150 X10^3/uL (150-400); Red Blood Cell Count 2.42 X10^6/uL (4.5-5.9); Red Cell Distribution Width 14.2 % (11.6-14.8)
[2022-07-22 05:59] LABS: Alanine Aminotransferase 42 IU/L (<50); Albumin 4.1 g/dL (3.5-5.0); Albumin Globulin Ratio 1.7 (1.0-2.8); Alkaline Phosphatase 30 U/L (38-126); Aspartate Aminotransferase 96 IU/L (17-59); BUN Creatinine Ratio 9.3 (6-22); Bilirubin Total 0.6 mg/dL (0.2-1.3); Bilirubin Unconjugated 0.5 mg/dL (0.0-1.1); Blood Urea Nitrogen 7 mg/dL (9-20); Calcium 8.1 mg/dL (8.4-10.2); Carbon Dioxide 25 mmol/L (22-32); Chloride 91 mmol/L (98-107); Creatine Kinase 1041 U/L (55-170); Estimated Glomerular Filt Rate > 60 mL/min (>60); Globulin 2.4 g/dL (1.7-4.1); Glucose 178 mg/dL (70-100); HEMOLYSIS < 15 (0-50); Potassium 3.8 mmol/L (3.4-5.1); Sodium 124 mmol/L (137-145); Total Protein 6.5 g/dL (6.3-8.2)
[2022-07-22 06:15] LABS: HCG Quantitative /Beta subunit < 2.4 mIU/mL (<2.40)
[2022-07-22] MEDS: HYDROCORTISONE 100 MG/2 ML VIAL IV ×3 (06:25→21:15)
[2022-07-22] MEDS: MIDODRINE HCL 5 MG TABLET PO (06:25)
[2022-07-22 06:29] LABS: Prostate Specific Antigen 0.099 ng/mL (0.10-4.00)
[2022-07-22] MEDS: DEXTROSE 5% WATER 1,000 ML 100 ML IV (06:52)
--- NOTE | 2022-07-22 07:42 | P.TELICUPN_ITS ---
Subjective Subjective IF CAMERA ACTIVATED, patient seen via real-time interactive audiovisual communication: Camera activated Consent obtained for tele-grinder set up operator centerless care: Yes Patient Location: ICU Provider location (State): [place] Other participants/roles: RN Interval history: Patient Summary:? 56 yo man with PMH of hypothyroidism and iron deficiency anemia presented 07/20 with generalyzed weakness several weeks and syncope and found to have hyponatremia, Neutropenia, and hypotension.? Infectious work-up so far neg.? CT of head/chest/abd/pelvis showed no evidence of malignancy.? TSH is within normal limits. Random Cortisol level was 1.44 so patient was started on Hydrocortisone.? Patient given Normal saline and BP and Na improved. 07/21:rate of Na correction was too rapid given patient had water auto diuresis and therefore NS IVF stopped, patient switched to 1/2 NS but Na continued to r ise so then Pt. was switched to D5 W and given dose of DDAVP. BP dropped and patient started on Levophed drip. Recent events: -Na this morning is 124 on D5W at 200 cc/hr -Patient still requiring Levophed drip at 3 mcg/min Subjective: Patient this morning reports feeling good except for feeling tired still. Current Medications Current Medications Medications: Home Medications No Known Home Medications 07/20/22 [History Confirmed 07/20/22] Visit Medications (administered) Generic Name Dose Route Start Last Admin Trade Name Freq PRN Reason Stop Dose Admin Acetaminophen 650 mg 07/20/22 14:06 07/20/22 18:00 Acetaminophen 325 Mg Tablet PO 650 mg Q6HR PRN Administration Fever/Mild Pain (1-3) Enoxaparin Sodium 40 mg 07/21/22 09:00 07/21/22 08:24 Enoxaparin 40 Mg/0.4 Ml Syringe SUBCUT 40 mg DAILY NAINA Administration Heparin Sodium (Porcine) 50 unit 07/20/22 21:00 07/21/22 21:06 Heparin Flush (Cl/Picc/Mid-Line) 50 Unit/5 Ml Syringe IV 50 unit BID NAINA Administration Hydrocortisone 100 mg 07/20/22 15:55 07/22/22 06:25 Hydrocortisone 100 Mg/2 Ml Vial IV 100 mg Q8HR NAINA Administration Cefepime HCl 1 gm/ Sodium 100 mls @ 200 mls/hr 07/20/22 14:15 07/22/22 06:08 Chloride IV Infused Q12H NAINA Infusion NOREPINEPHRINE BITARTRATE/D5W 4 mg in 250 mls @ 30 mls/hr 07/21/22 16:15 07/21/22 20:33 Levophed IV 3 mcg/min TITRATE NAINA 11.25 mls/hr Titration Protocol 8 MCG/MIN Dextrose 1,000 mls @ 100 mls/hr 07/22/22 06:45 07/22/22 06:52 Dextrose 5% Water IV 100 mls/hr CONT NAINA Administration Midodrine 5 mg 07/22/22 06:00 07/22/22 06:25 Midodrine Hcl 5 Mg Tablet PO 5 mg 0600,1200,1800 NAINA Administration Objective Labs Result Diagrams: 07/22/22 07:40 07/22/22 09:19 Labs: Laboratory Results - last 24 hr 07/20/22 07/21/22 07/21/22 14:26 08:45 08:45 WBC RBC Hgb Hct MCV MCH MCHC RDW Plt Count Neut % (Auto) Lymph % (Auto) [place] % (Auto) Eos % (Auto) Baso % (Auto) Neut # (Auto) Lymph # (Auto) [place] # (Auto) Eos # (Auto) Baso # (Auto) Sodium 128 L 128 L Potassium 4.8 Chloride 98 Carbon Dioxide 23 BUN 7 L Creatinine 0.76 Estimated GFR > 60 BUN/Creatinine Ratio 9.2 Glucose 111 H Calcium 8.6 Total Bilirubin Conjugated Bilirubin Unconjugated Bilirubin AST ALT Alkaline Phosphatase Total Creatine Kinase Total Protein Albumin Globulin Albumin/Globulin Ratio Prostate Specific Ag HCG, Quant Urine Osmolality 505 07/21/22 07/21/22 07/21/22 12:55 16:50 21:22 WBC RBC Hgb Hct MCV MCH MCHC RDW Plt Count Neut % (Auto) Lymph % (Auto) [place] % (Auto) Eos % (Auto) Baso % (Auto) Neut # (Auto) Lymph # (Auto) [place] # (Auto) Eos # (Auto) Baso # (Auto) Sodium 130 L 129 L 125 L Potassium 4.3 4.0 Chloride 95 L 93 L Carbon Dioxide 24 25 BUN 10 10 Creatinine 0.87 0.84 Estimated GFR > 60 > 60 BUN/Creatinine Ratio 11.5 11.9 Glucose 187 H 249 H Calcium 8.4 8.3 L Total Bilirubin Conjugated Bilirubin Unconjugated Bilirubin AST ALT Alkaline Phosphatase Total Creatine Kinase Total Protein Albumin Globulin Albumin/Globulin Ratio Prostate Specific Ag HCG, Quant Urine Osmolality 07/22/22 07/22/22 07/22/22 01:35 05:30 05:30 WBC 8.0 D RBC 2.42 L Hgb 8.3 L Hct 23.5 L MCV 97.0 MCH 34.1 H MCHC 35.2 RDW 14.2 Plt Count 150 Neut % (Auto) 93.2 H Lymph % (Auto) 4.8 L [place] % (Auto) 1.6 L Eos % (Auto) 0.0 L Baso % (Auto) 0.4 Neut # (Auto) 7400 H Lymph # (Auto) 400 L [place] # (Auto) 100 Eos # (Auto) 0 Baso # (Auto) 0 Sodium 125 L 124 L Potassium 3.8 3.8 Chloride 91 L 91 L Carbon Dioxide 25 25 BUN 8 L 7 L Creatinine 0.78 0.75 Estimated GFR > 60 > 60 BUN/Creatinine Ratio 10.3 9.3 Glucose 206 H 178 H Calcium 8.3 L 8.1 L Total Bilirubin 0.6 Conjugated Bilirubin 0.0 Unconjugated Bilirubin 0.5 AST 96 H ALT 42 Alkaline Phosphatase 30 L Total Creatine Kinase 1041 H D Total Protein 6.5 Albumin 4.1 Globulin 2.4 Albumin/Globulin Ratio 1.7 Prostate Specific Ag 0.099 L HCG, Quant < 2.4 Urine Osmolality Exam Vital Signs (past 8 hours): - 07/22/22 00:00 07/22/22 00:00 07/22/22 00:00 Temperature 97.5 F L Pulse Rate 63 Respiratory Rate 12 Blood Pressure 108/72 Pulse Oximetry 94 Oxygen Delivery Method Room Air 07/22/22 00:30 07/22/22 00:30 07/22/22 01:00 Temperature Pulse Rate 64 Respiratory Rate 13 Blood Pressure 106/73 108/73 Pulse Oximetry 94 Oxygen Delivery Method 07/22/22 01:00 07/22/22 01:30 07/22/22 01:30 Temperature Pulse Rate 70 72 Respiratory Rate 13 15 Blood Pressure 106/72 Pulse Oximetry 92 95 Oxygen Delivery Method 07/22/22 02:00 07/22/22 02:00 07/22/22 02:30 Temperature Pulse Rate 65 62 Respiratory Rate 10 L 13 Blood Pressure 107/73 Pulse Oximetry 94 95 Oxygen Delivery Method 07/22/22 02:30 07/22/22 03:00 07/22/22 03:00 Temperature Pulse Rate 63 Respiratory Rate 13 Blood Pressure 108/73 107/73 Pulse Oximetry 94 Oxygen Delivery Method 07/22/22 03:30 07/22/22 03:30 07/22/22 04:00 Temperature Pulse Rate 65 Respiratory Rate 8 L Blood Pressure 107/72 111/77 Pulse Oximetry 95 Oxygen Delivery Method 07/22/22 04:00 07/22/22 04:00 07/22/22 04:30 Temperature Pulse Rate 66 67 Respiratory Rate 11 L 13 Blood Pressure Pulse Oximetry 94 94 Oxygen Delivery Method Room Air 07/22/22 04:30 07/22/22 05:00 07/22/22 05:00 Temperature Pulse Rate 69 Respiratory Rate 12 Blood Pressure 105/70 103/71 Pulse Oximetry 93 Oxygen Delivery Method 07/22/22 05:30 07/22/22 05:30 07/22/22 06:00 Temperature Pulse Rate 81 Respiratory Rate 13 Blood Pressure 91/60 108/68 Pulse Oximetry 94 Oxygen Delivery Method 07/22/22 06:00 07/22/22 06:30 07/22/22 06:30 Temperature 97.2 F L Pulse Rate 65 62 Respiratory Rate 11 L 11 L Blood Pressure 111/71 Pulse Oximetry 95 95 Oxygen Delivery Method 07/22/22 07:00 07/22/22 07:00 07/22/22 07:30 Temperature Pulse Rate 60 83 Respiratory Rate 12 17 Blood Pressure 103/66 Pulse Oximetry 94 94 Oxygen Delivery Method 07/22/22 07:30 Temperature Pulse Rate Respiratory Rate Blood Pressure 105/74 Pulse Oximetry Oxygen Delivery Method Oxygen Delivery Method Room Air Oxygen Flow Rate 0 Narrative Exam Narrative: Patient seen through 2 way audio visual system. He is alert and answering questions appropriately. Assessment & Plan Assessment & Plan narrative: Syncope Hypotension Hyponatremia-improved Neutropenia-improved Generalized weakness elevated CPK-trending down low Cortisol Discussion: Cause of patient's neutropenia, hyponatremia, and hypontesion at this point unclear. Malignancy work up so far neg. Pt. already started on steroids for possible adrenal insuffiency but BP remains low requiring pressors. Plan [employer]IXER: Head CT and brain MRI neg.? CV: Etiology of hypotension unclear. Infectious work-up for possible sepsis so far neg. Despite starting hydrocortisone for possible adrenal insufficiency, patient remains hypotensive. Pt. has orthostatic hypotension and BP seemed to transiently respond to IVF boluses suggesting low intravascular volume but then he would auto diurese and drop his BP again. -titrate down LEvophed drip as long as MAP is > 65 -increase midodrine from 5 to 10 mg TID -albumin 25% 50 cc q6H x 1 day Heme/ID:Procal neg, blood culture from 07/13 neg, CXR neg -follow up on cultures -continue cefepime for empiric coverage for now given persistent hypotension and cultures still pending -consult Heme/onc for bone marrow biopsy and work up of occult malignancy -if no Heme/Onc available at [facility] consider transfer to hospital that has Heme/Once consult available FEN/Renal: -aim for Na rate of correction of about 4-6 mEq/day (today will aim for a goal Na of 124-128) -since patient's auto diuresis makes it difficult to control his rate of Na co rrection, will start DDAVP 2 mcg?BID - will reduce D5W from 200 cc/hr to 100 cc/hr for now -monitor Na q4h and adjust D5W infusion as needed to maintain Na goal of 124-128 for the next 24 hours -continue to monitor daily CPK till it normalizes Endo: random cortisol was low at 1.44 -continue hydrocortisone Prophylaxis: SQ heparin PT/OT Addendum: Repeat Na at 9 am just came back at 123 so stopped D5W. Discussed my assessment and recommendations with Dr. Beltran CCT spent 60 min Time Spent With Patient Critical Care time: I spent a total of [] minutes of critical care time on this patient's care today; this time is exclusive of procedural time.
[2022-07-22 07:52] LABS: Hemoglobin 8.4 g/dL (13.5-17.5); Mean Corpuscular HGB Conc 34.9 % (30-36); Mean Corpuscular Volume 97.3 fL (80-100); Platelet Count 159 X10^3/uL (150-400); Red Blood Cell Count 2.47 X10^6/uL (4.5-5.9); Red Cell Distribution Width 14.5 % (11.6-14.8); White Blood Cell Count 9.3 X10^3/uL (4.5-11.0)
[2022-07-22] MEDS: DESMOPRESSIN 4 MCG/ML AMPUL 2 MCG IV (07:59)
--- NOTE | 2022-07-22 08:11 | PM.PN.1 ---
Subjective Subjective Date Patient Seen: 07/22/22 Time Patient Seen: 14:00 Interval history: Patient with very little appetite and pretty sleepy today. Otherwise no complaints. Exam Vital Signs (past 8 hours): - 07/22/22 00:30 07/22/22 00:30 07/22/22 01:00 Temperature Pulse Rate 64 Respiratory Rate 13 Blood Pressure 106/73 108/73 Pulse Oximetry 94 Oxygen Delivery Method 07/22/22 01:00 07/22/22 01:30 07/22/22 01:30 Temperature Pulse Rate 70 72 Respiratory Rate 13 15 Blood Pressure 106/72 Pulse Oximetry 92 95 Oxygen Delivery Method 07/22/22 02:00 07/22/22 02:00 07/22/22 02:30 Temperature Pulse Rate 65 62 Respiratory Rate 10 L 13 Blood Pressure 107/73 Pulse Oximetry 94 95 Oxygen Delivery Method 07/22/22 02:30 07/22/22 03:00 07/22/22 03:00 Temperature Pulse Rate 63 Respiratory Rate 13 Blood Pressure 108/73 107/73 Pulse Oximetry 94 Oxygen Delivery Method 07/22/22 03:30 07/22/22 03:30 07/22/22 04:00 Temperature Pulse Rate 65 Respiratory Rate 8 L Blood Pressure 107/72 111/77 Pulse Oximetry 95 Oxygen Delivery Method 07/22/22 04:00 07/22/22 04:00 07/22/22 04:30 Temperature Pulse Rate 66 67 Respiratory Rate 11 L 13 Blood Pressure Pulse Oximetry 94 94 Oxygen Delivery Method Room Air 07/22/22 04:30 07/22/22 05:00 07/22/22 05:00 Temperature Pulse Rate 69 Respiratory Rate 12 Blood Pressure 105/70 103/71 Pulse Oximetry 93 Oxygen Delivery Method 07/22/22 05:30 07/22/22 05:30 07/22/22 06:00 Temperature Pulse Rate 81 Respiratory Rate 13 Blood Pressure 91/60 108/68 Pulse Oximetry 94 Oxygen Delivery Method 07/22/22 06:00 07/22/22 06:30 07/22/22 06:30 Temperature 97.2 F L Pulse Rate 65 62 Respiratory Rate 11 L 11 L Blood Pressure 111/71 Pulse Oximetry 95 95 Oxygen Delivery Method 07/22/22 07:00 07/22/22 07:00 07/22/22 07:30 Temperature Pulse Rate 60 83 Respiratory Rate 12 17 Blood Pressure 103/66 Pulse Oximetry 94 94 Oxygen Delivery Method 07/22/22 07:30 Temperature Pulse Rate Respiratory Rate Blood Pressure 105/74 Pulse Oximetry Oxygen Delivery Method Oxygen Delivery Method Room Air Oxygen Flow Rate 0 Narrative Exam Narrative: GEN: very pale and weak appearing, adentulous HEENT: PERRL, moist mucous membranes. NECK: trachea midline, no JVD, no lymphadenopathy noted CV: regular rate and rhythm, no murmurs PULM: clear bilaterally, no wheezes, rhonchi, rales ABD: soft, nontender, nondistended, no organomegaly, normal bowel sounds EXT: warm and well perfused, swollen appearance of fingers NEURO: awake, alert, oriented,? slow to respond SKIN: Very pale. Almost a slight yellow tinge color to face. Objective Labs Result Diagrams: 07/22/22 07:40 07/22/22 13:37 Labs: Laboratory Results - last 24 hr 07/20/22 07/21/22 07/21/22 14:26 08:45 08:45 WBC RBC Hgb Hct MCV MCH MCHC RDW Plt Count Neut % (Auto) Lymph % (Auto) [place] % (Auto) Eos % (Auto) Baso % (Auto) Neut # (Auto) Lymph # (Auto) [place] # (Auto) Eos # (Auto) Baso # (Auto) Sodium 128 L 128 L Potassium 4.8 Chloride 98 Carbon Dioxide 23 BUN 7 L Creatinine 0.76 Estimated GFR > 60 BUN/Creatinine Ratio 9.2 Glucose 111 H Calcium 8.6 Total Bilirubin Conjugated Bilirubin Unconjugated Bilirubin AST ALT Alkaline Phosphatase Total Creatine Kinase Total Protein Albumin Globulin Albumin/Globulin Ratio Prostate Specific Ag HCG, Quant Urine Osmolality 505 07/21/22 07/21/22 07/21/22 12:55 16:50 21:22 WBC RBC Hgb Hct MCV MCH MCHC RDW Plt Count Neut % (Auto) Lymph % (Auto) [place] % (Auto) Eos % (Auto) Baso % (Auto) Neut # (Auto) Lymph # (Auto) [place] # (Auto) Eos # (Auto) Baso # (Auto) Sodium 130 L 129 L 125 L Potassium 4.3 4.0 Chloride 95 L 93 L Carbon Dioxide 24 25 BUN 10 10 Creatinine 0.87 0.84 Estimated GFR > 60 > 60 BUN/Creatinine Ratio 11.5 11.9 Glucose 187 H 249 H Calcium 8.4 8.3 L Total Bilirubin Conjugated Bilirubin Unconjugated Bilirubin AST ALT Alkaline Phosphatase Total Creatine Kinase Total Protein Albumin Globulin Albumin/Globulin Ratio Prostate Specific Ag HCG, Quant Urine Osmolality 07/22/22 07/22/22 07/22/22 01:35 05:30 05:30 WBC 8.0 D RBC 2.42 L Hgb 8.3 L Hct 23.5 L MCV 97.0 MCH 34.1 H MCHC 35.2 RDW 14.2 Plt Count 150 Neut % (Auto) 93.2 H Lymph % (Auto) 4.8 L [place] % (Auto) 1.6 L Eos % (Auto) 0.0 L Baso % (Auto) 0.4 Neut # (Auto) 7400 H Lymph # (Auto) 400 L [place] # (Auto) 100 Eos # (Auto) 0 Baso # (Auto) 0 Sodium 125 L 124 L Potassium 3.8 3.8 Chloride 91 L 91 L Carbon Dioxide 25 25 BUN 8 L 7 L Creatinine 0.78 0.75 Estimated GFR > 60 > 60 BUN/Creatinine Ratio 10.3 9.3 Glucose 206 H 178 H Calcium 8.3 L 8.1 L Total Bilirubin 0.6 Conjugated Bilirubin 0.0 Unconjugated Bilirubin 0.5 AST 96 H ALT 42 Alkaline Phosphatase 30 L Total Creatine Kinase 1041 H D Total Protein 6.5 Albumin 4.1 Globulin 2.4 Albumin/Globulin Ratio 1.7 Prostate Specific Ag 0.099 L HCG, Quant < 2.4 Urine Osmolality 07/22/22 07:40 WBC 9.3 RBC 2.47 L Hgb 8.4 L Hct 24.0 L MCV 97.3 MCH 34.0 MCHC 34.9 RDW 14.5 Plt Count 159 Neut % (Auto) Lymph % (Auto) [place] % (Auto) Eos % (Auto) Baso % (Auto) Neut # (Auto) Lymph # (Auto) [place] # (Auto) Eos # (Auto) Baso # (Auto) Sodium Potassium Chloride Carbon Dioxide BUN Creatinine Estimated GFR BUN/Creatinine Ratio Glucose Calcium Total Bilirubin Conjugated Bilirubin Unconjugated Bilirubin AST ALT Alkaline Phosphatase Total Creatine Kinase Total Protein Albumin Globulin Albumin/Globulin Ratio Prostate Specific Ag HCG, Quant Urine Osmolality [facility] Social History household members: none Smoking Status: Current every day smoker alcohol intake: current Assessment & Plan Assessment & Plan narrative: 1. Acute hyponatremia secondary to glucocorticoid deficiency vs SIADH -initialy Na 118, increased to 124 -TSH normal, urine Na 45 and urine Osm 505 suggesting possible glucocorticoid deficiency -random cortisol 1.44 -also possible SIADH, will fluid restrict 1.5L and give DDAVP 2mcg PRN for increased UO of 200mL over 2 hours -continue hydrocortisone 100mg q8h IV 2. Acute shock of unknown etiology -currently requiring levphed at 3mcg/min and midodrine 10mg TID -likely hypovolemic, however cannot rule out septic -continue cefepime, will dc if blood cultures neg at 48 hours -possibly due to glucocorticoid deficiency given low cortisol -continue IV solu-medrol -MRI brain normal with pituitary abnormality -titrate levophed as able 3. Neutropenia, acute and history of iron deficiency anemia -initial ANC 800 on admission, currently 7500 but may be due to steroids -attempted transfer for bone marrow biopsy but turned down by [facility] -continue cefepime as above for now 4. Anasarca with small pericardial, and pleural effusions and intra-abdominal fluid -unclear etiology, but possibly due to adrenal insufficiency -should have ACTH stim test as outpatinet -echo with trivial pericardial effusion and EF 60-65% 5. Elevated CK Trending down. Will continue to follow. Dispo: Unknown due to improvement of sodium and shock. I spent a total of 35 minutes of critical care time on this patient's care today; this time is exclusive of procedural time. CODE: Full Proxy: Gilmer Spicer, father Time Spent With Patient Critical Care time: I spent a total of [] minutes of critical care time on this patient's care today; this time is exclusive of procedural time.
[2022-07-22] MEDS: THIAMINE 200 MG in SODIUM CHLORIDE 0.9% 100 ML 408 MG IV (09:03)
[2022-07-22] MEDS: NOREPINEPHRINE BITARTRATE/D5W 4 MG/250 ML PLAST..BAG 11.25 MG IV (09:04)
[2022-07-22] MEDS: ENOXAPARIN 40 MG/0.4 ML SYRINGE SUBCUT (09:04)
[2022-07-22] MEDS: ALBUMIN HUMAN 12.5 GM/50 ML VIAL IV ×3 (09:36→21:18)
[2022-07-22 09:43] LABS: BUN Creatinine Ratio 8.2 (6-22); Blood Urea Nitrogen 6 mg/dL (9-20); Calcium 7.9 mg/dL (8.4-10.2); Carbon Dioxide 23 mmol/L (22-32); Chloride 92 mmol/L (98-107); Estimated Glomerular Filt Rate > 60 mL/min (>60); Glucose 147 mg/dL (70-100); HEMOLYSIS < 15 (0-50); Potassium 3.8 mmol/L (3.4-5.1); Sodium 123 mmol/L (137-145)
[2022-07-22 09:51] LABS: Magnesium 1.9 mg/dL (1.6-2.3)
--- NOTE | 2022-07-22 13:02 | PT-IP ANOTE ---
per rounds: pt is not medically stable to do PT and is on hold for today.
--- NOTE | 2022-07-22 13:48 | CM.DPC ---
DCP Cont: Per MD, pt's etiology still unclear and tele-end frazer and hospitalist will consult with Oncologist to determine if bedside bone biopsy can be completed to rule out any underlying cancer dx. Per RN, pt has only been sleeping today and has not even eaten any food. Pt looks unwell and unclear what SW needs might be for discharge planning. Pt's lack of insurance will likely be a barrier for ongoing f/u after discharge, although his hospital bill could likely help pt qualify for [employer] eventually. Plan: SW to follow closely towards determining etiology and POC towards determining d/c planning needs. NANCY Christensen
[2022-07-22 13:53] LABS: Blood Urea Nitrogen 6 mg/dL (9-20); Calcium 7.9 mg/dL (8.4-10.2); Carbon Dioxide 25 mmol/L (22-32); Chloride 91 mmol/L (98-107); Estimated Glomerular Filt Rate > 60 mL/min (>60); Glucose 106 mg/dL (70-100); HEMOLYSIS < 15 (0-50); Potassium 3.8 mmol/L (3.4-5.1); Sodium 124 mmol/L (137-145)
[2022-07-22] MEDS: MIDODRINE HCL 5 MG TABLET 10 MG PO ×2 (14:23→19:56)
[2022-07-22 16:15] LABS: Prealbumin 17.4 mg/dL (17.6-36.0)
[2022-07-22] MEDS: NICOTINE 14 PATCH 14 MG TOP (17:30)
[2022-07-22 18:23] LABS: BUN Creatinine Ratio 8.3 (6-22); Blood Urea Nitrogen 6 mg/dL (9-20); Calcium 8.2 mg/dL (8.4-10.2); Carbon Dioxide 24 mmol/L (22-32); Chloride 90 mmol/L (98-107); Estimated Glomerular Filt Rate > 60 mL/min (>60); Glucose 115 mg/dL (70-100); HEMOLYSIS < 15 (0-50); Potassium 3.9 mmol/L (3.4-5.1)
[2022-07-22 18:29] LABS: Sodium 125 mmol/L (137-145)
--- NOTE | 2022-07-22 19:30 | PM.ICURNDS ---
- Date Patient Seen: 07/22/22 Time Patient Seen: 19:30 :: This patient was seen via real time interactive two-way audiovisual telecommunication. Note: On levophed 3 mcg. Na level 125 and off D5W. Total UOP ~ 675 mL during the day. Switch DDAVP to as needed for UOP > 200 mL X 2 hours. Will continue fluid restriction and titrate down levophed for MAP goal > 65. If Na level fails to improve then will start salt tablet. D/w patient and and RN.
[2022-07-22 21:33] LABS: BUN Creatinine Ratio 10.2 (6-22); Blood Urea Nitrogen 6 mg/dL (9-20); Calcium 8.1 mg/dL (8.4-10.2); Carbon Dioxide 25 mmol/L (22-32); Chloride 90 mmol/L (98-107); Estimated Glomerular Filt Rate > 60 mL/min (>60); Glucose 123 mg/dL (70-100); HEMOLYSIS < 15 (0-50); Potassium 3.8 mmol/L (3.4-5.1); Sodium 124 mmol/L (137-145)
[2022-07-22 22:38] LABS: Alpha Fetoprotein 3.6 ng/mL (0.0-8.4)
[2022-07-23] VITALS (34 sets, daily range): BP systolic 102–122; BP diastolic 68–85; PULSE 54–104; RESP 7–30; TEMP 36.5–36.6; O2SAT 91–99
[2022-07-23 01:40] LABS: BUN Creatinine Ratio 10.3 (6-22); Blood Urea Nitrogen 6 mg/dL (9-20); Calcium 8.2 mg/dL (8.4-10.2); Carbon Dioxide 26 mmol/L (22-32); Chloride 88 mmol/L (98-107); Estimated Glomerular Filt Rate > 60 mL/min (>60); Glucose 127 mg/dL (70-100); HEMOLYSIS < 15 (0-50); Potassium 3.9 mmol/L (3.4-5.1); Sodium 123 mmol/L (137-145)
[2022-07-23] MEDS: CEFEPIME 1 GM in SODIUM CHLORIDE 0.9% 100 ML IV (02:08)
[2022-07-23] MEDS: ALBUMIN HUMAN 12.5 GM/50 ML VIAL IV (03:13)
[2022-07-23] MEDS: HYDROCORTISONE 100 MG/2 ML VIAL IV ×3 (05:42→21:37)
[2022-07-23] MEDS: MIDODRINE HCL 5 MG TABLET 10 MG PO ×3 (05:42→17:38)
--- NOTE | 2022-07-23 05:49 | PC.NURSE ---
Levo turned off arounf 2 am. BPs have been holding, with MAPs >65.
[2022-07-23 05:53] LABS: Add Manual Diff / Slide Review NO; Basophils Absolute Auto 0 /uL (0-100); Basophils Percent Auto 0.3 % (0-2); Eosinophils Absolute Auto 0 /uL (0-450); Eosinophils Percent Auto 0.1 % (2-4); Hemoglobin 7.8 g/dL (13.5-17.5); Lymphocytes Absolute Auto 500 /uL (1100-4500); Lymphocytes Percent Auto 6.5 % (25-40); Mean Corpuscular HGB Conc 35.4 % (30-36); Mean Corpuscular Hemoglobin 34.1 PG (26-34); Mean Corpuscular Volume 96.3 fL (80-100); Monocytes Absolute Auto 200 /uL (0-900); Monocytes Percent Auto 2.1 % (3-14); Neutrophils Absolute Auto 6700 /uL (1500-7000); Platelet Count 131 X10^3/uL (150-400); Red Blood Cell Count 2.28 X10^6/uL (4.5-5.9); Red Cell Distribution Width 14.2 % (11.6-14.8); White Blood Cell Count 7.4 X10^3/uL (4.5-11.0)
[2022-07-23 05:59] LABS: BUN Creatinine Ratio 11.5 (6-22); Blood Urea Nitrogen 7 mg/dL (9-20); Calcium 8.1 mg/dL (8.4-10.2); Carbon Dioxide 27 mmol/L (22-32); Chloride 89 mmol/L (98-107); Estimated Glomerular Filt Rate > 60 mL/min (>60); Glucose 122 mg/dL (70-100); HEMOLYSIS < 15 (0-50); Potassium 3.9 mmol/L (3.4-5.1); Sodium 125 mmol/L (137-145)
--- NOTE | 2022-07-23 08:08 | PM.PN.1 ---
Subjective Subjective Date Patient Seen: 07/23/22 Time Patient Seen: 11:00 Interval history: Patient feeling ok and still with very little appetite. No BM as he hasn't been eating. Na improving to 126 today. Exam Vital Signs (past 8 hours): - 07/23/22 01:00 07/23/22 01:00 07/23/22 02:00 Pulse Rate 57 L Respiratory Rate 12 Blood Pressure 122/82 120/78 Pulse Oximetry 94 Oxygen Delivery Method 07/23/22 02:00 07/23/22 03:00 07/23/22 03:00 Pulse Rate 60 60 Respiratory Rate 10 L 10 L Blood Pressure 109/71 Pulse Oximetry 93 91 Oxygen Delivery Method 07/23/22 04:00 07/23/22 04:00 07/23/22 04:00 Pulse Rate 60 Respiratory Rate 10 L Blood Pressure 106/73 Pulse Oximetry 94 Oxygen Delivery Method Room Air 07/23/22 05:00 07/23/22 05:00 07/23/22 06:00 Pulse Rate 73 Respiratory Rate 13 Blood Pressure 102/71 108/75 Pulse Oximetry Oxygen Delivery Method 07/23/22 06:00 Pulse Rate 54 L Respiratory Rate 11 L Blood Pressure Pulse Oximetry 94 Oxygen Delivery Method Oxygen Delivery Method Room Air Oxygen Flow Rate 0 Narrative Exam Narrative: GEN: very pale and weak appearing, adentulous HEENT: PERRL, moist mucous membranes. NECK: trachea midline, no JVD, no lymphadenopathy noted CV: regular rate and rhythm, no murmurs PULM: clear bilaterally, no wheezes, rhonchi, rales ABD: soft, nontender, nondistended, no organomegaly, normal bowel sounds EXT: warm and well perfused, swollen appearance of fingers NEURO: awake, alert, oriented,? slow to respond SKIN: Very pale. Almost a slight yellow tinge color to face. Objective Labs Result Diagrams: 07/23/22 13:08 07/23/22 10:18 Labs: Laboratory Results - last 24 hr 07/22/22 07/22/22 07/22/22 09:19 09:19 09:19 WBC RBC Hgb Hct MCV MCH MCHC RDW Plt Count Neut % (Auto) Lymph % (Auto) [place] % (Auto) Eos % (Auto) Baso % (Auto) Neut # (Auto) Lymph # (Auto) [place] # (Auto) Eos # (Auto) Baso # (Auto) Sodium 123 L Potassium 3.8 Chloride 92 L Carbon Dioxide 23 BUN 6 L Creatinine 0.73 Estimated GFR > 60 BUN/Creatinine Ratio 8.2 Glucose 147 H Calcium 7.9 L Magnesium 1.9 Prealbumin 17.4 L Alpha Fetoprotein 07/22/22 07/22/22 07/22/22 13:37 17:55 21:03 WBC RBC Hgb Hct MCV MCH MCHC RDW Plt Count Neut % (Auto) Lymph % (Auto) [place] % (Auto) Eos % (Auto) Baso % (Auto) Neut # (Auto) Lymph # (Auto) [place] # (Auto) Eos # (Auto) Baso # (Auto) Sodium 124 L 125 L 124 L Potassium 3.8 3.9 3.8 Chloride 91 L 90 L 90 L Carbon Dioxide 25 24 25 BUN 6 L 6 L 6 L Creatinine 0.67 0.72 0.59 L Estimated GFR > 60 > 60 > 60 BUN/Creatinine Ratio 9.0 8.3 10.2 Glucose 106 H 115 H 123 H Calcium 7.9 L 8.2 L 8.1 L Magnesium Prealbumin Alpha Fetoprotein 07/22/22 07/23/22 07/23/22 Unknown 00:57 05:36 WBC RBC Hgb Hct MCV MCH MCHC RDW Plt Count Neut % (Auto) Lymph % (Auto) [place] % (Auto) Eos % (Auto) Baso % (Auto) Neut # (Auto) Lymph # (Auto) [place] # (Auto) Eos # (Auto) Baso # (Auto) Sodium 123 L 125 L Potassium 3.9 3.9 Chloride 88 L 89 L Carbon Dioxide 26 27 BUN 6 L 7 L Creatinine 0.58 L 0.61 L Estimated GFR > 60 > 60 BUN/Creatinine Ratio 10.3 11.5 Glucose 127 H 122 H Calcium 8.2 L 8.1 L Magnesium Prealbumin Alpha Fetoprotein 3.6 07/23/22 05:36 WBC 7.4 RBC 2.28 L Hgb 7.8 L Hct 22.0 L MCV 96.3 MCH 34.1 H MCHC 35.4 RDW 14.2 Plt Count 131 L Neut % (Auto) 91.0 H Lymph % (Auto) 6.5 L [place] % (Auto) 2.1 L Eos % (Auto) 0.1 L Baso % (Auto) 0.3 Neut # (Auto) 6700 Lymph # (Auto) 500 L [place] # (Auto) 200 Eos # (Auto) 0 Baso # (Auto) 0 Sodium Potassium Chloride Carbon Dioxide BUN Creatinine Estimated GFR BUN/Creatinine Ratio Glucose Calcium Magnesium Prealbumin Alpha Fetoprotein [facility] Social History household members: none Smoking Status: Current every day smoker alcohol intake: current Assessment & Plan Assessment & Plan narrative: 1. Acute hyponatremia secondary to glucocorticoid deficiency vs SIADH -initialy Na 118, increased to 126 -TSH normal, urine Na 45 and urine Osm 505 suggesting possible glucocorticoid deficiency -random cortisol 1.44 -also possible SIADH, will fluid restrict 1.5L and give DDAVP 2mcg PRN for increased UO of 200mL over 2 hours -continue hydrocortisone 100mg q8h IV 2. Acute shock of unknown etiology, resolved -initially requiring levphed at 3mcg/min and midodrine 10mg TID -likely hypovolemic, however cannot rule adrenal insufficiency -stopped cefepime as BCx neg at 48 hours -possibly due to glucocorticoid deficiency given low cortisol -continue IV solu-medrol 100mg TID, will transition to po steroids on 07/24 -MRI brain normal without pituitary abnormality -levophed weaned off on 07/23 3. Neutropenia, acute and history of iron deficiency anemia -initial ANC 800 on admission, currently 7500 but may be due to steroids -attempted transfer for bone marrow biopsy but turned down by [facility] -unclear if patient would benefit from bone marrow biopsy as ANC has improved dramatically with steroids 4. Anasarca with small pericardial, and pleural effusions and intra-abdominal fluid -unclear etiology, but possibly due to adrenal insufficiency -should have ACTH stim test as outpatient -echo with trivial pericardial effusion and EF 60-65% 5. Elevated CK Trending down. Will continue to follow. 6. Sick euthyroid syndrome with history of hypothyroidism -T3/T4 low with normal TSH, patient notes he used to be on synthroid several years ago but stopped -curbsided endocrinology who recommended starting 50mcg synthroid given h/o hypothyroidism 7. Malnutrition and anorexia -patient with BMI 21 and barely eating -dietary consult Dispo: 2-3 days until further improvement of sodium. CODE: Full Proxy: Gilmerdon Spicer, father Time Spent With Patient Critical Care time: I spent a total of [] minutes of critical care time on this patient's care today; this time is exclusive of procedural time.
--- NOTE | 2022-07-23 08:45 | P.TELICUPN_ITS ---
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 Na 125. Off levophed. Start salt tablet 1 gram daily and titrate for goal Na 133. Current Medications Current Medications Medications: Home Medications No Known Home Medications 07/20/22 [History Confirmed 07/20/22] Visit Medications (administered) Generic Name Dose Route Start Last Admin Trade Name Freq PRN Reason Stop Dose Admin Acetaminophen 650 mg 07/20/22 14:06 07/20/22 18:00 Acetaminophen 325 Mg Tablet PO 650 mg Q6HR PRN Administration Fever/Mild Pain (1-3) Enoxaparin Sodium 40 mg 07/21/22 09:00 07/22/22 09:04 Enoxaparin 40 Mg/0.4 Ml Syringe SUBCUT 40 mg DAILY NAINA Administration Heparin Sodium (Porcine) 50 unit 07/20/22 15:00 07/22/22 07:45 Heparin Flush (Cl/Picc/Mid-Line) 50 Unit/5 Ml Syringe IV 50 unit PRN PRN Administration Flush Heparin Sodium (Porcine) 50 unit 07/20/22 21:00 07/22/22 21:16 Heparin Flush (Cl/Picc/Mid-Line) 50 Unit/5 Ml Syringe IV 50 unit BID NAINA Administration Hydrocortisone 100 mg 07/20/22 15:55 07/23/22 05:42 Hydrocortisone 100 Mg/2 Ml Vial IV 100 mg Q8HR NAINA Administration NOREPINEPHRINE BITARTRATE/D5W 4 mg in 250 mls @ 30 mls/hr 07/21/22 16:15 07/23/22 02:00 Levophed IV 0 mcg/min TITRATE NAINA 0 mls/hr Titration Protocol 8 MCG/MIN Thiamine HCl 200 mg/ Sodium 102 mls @ 408 mls/hr 07/22/22 09:00 07/22/22 10:04 Chloride IV Infused DAILY NAINA Infusion Albumin Human 12.5 gm in 50 mls @ 60 mls/hr 07/22/22 09:15 07/23/22 03:13 Albuminar IV 07/23/22 09:14 60 mls/hr Q6H NAINA Administration Midodrine 10 mg 07/22/22 12:00 07/23/22 05:42 Midodrine Hcl 5 Mg Tablet PO 10 mg 0600,1200,1800 NAINA Administration Nicotine 14 mg 07/22/22 17:00 07/22/22 17:30 Nicotine 14 Patch TOP 14 mg DAILY NAINA Administration Objective Labs Result Diagrams: 07/23/22 05:36 07/23/22 05:36 Labs: Laboratory Results - last 24 hr 07/22/22 07/22/22 07/22/22 09:19 09:19 09:19 WBC RBC Hgb Hct MCV MCH MCHC RDW Plt Count Neut % (Auto) Lymph % (Auto) [place] % (Auto) Eos % (Auto) Baso % (Auto) Neut # (Auto) Lymph # (Auto) [place] # (Auto) Eos # (Auto) Baso # (Auto) Sodium 123 L Potassium 3.8 Chloride 92 L Carbon Dioxide 23 BUN 6 L Creatinine 0.73 Estimated GFR > 60 BUN/Creatinine Ratio 8.2 Glucose 147 H Calcium 7.9 L Magnesium 1.9 Prealbumin 17.4 L Alpha Fetoprotein 07/22/22 07/22/22 07/22/22 13:37 17:55 21:03 WBC RBC Hgb Hct MCV MCH MCHC RDW Plt Count Neut % (Auto) Lymph % (Auto) [place] % (Auto) Eos % (Auto) Baso % (Auto) Neut # (Auto) Lymph # (Auto) [place] # (Auto) Eos # (Auto) Baso # (Auto) Sodium 124 L 125 L 124 L Potassium 3.8 3.9 3.8 Chloride 91 L 90 L 90 L Carbon Dioxide 25 24 25 BUN 6 L 6 L 6 L Creatinine 0.67 0.72 0.59 L Estimated GFR > 60 > 60 > 60 BUN/Creatinine Ratio 9.0 8.3 10.2 Glucose 106 H 115 H 123 H Calcium 7.9 L 8.2 L 8.1 L Magnesium Prealbumin Alpha Fetoprotein 07/22/22 07/23/22 07/23/22 Unknown 00:57 05:36 WBC RBC Hgb Hct MCV MCH MCHC RDW Plt Count Neut % (Auto) Lymph % (Auto) [place] % (Auto) Eos % (Auto) Baso % (Auto) Neut # (Auto) Lymph # (Auto) [place] # (Auto) Eos # (Auto) Baso # (Auto) Sodium 123 L 125 L Potassium 3.9 3.9 Chloride 88 L 89 L Carbon Dioxide 26 27 BUN 6 L 7 L Creatinine 0.58 L 0.61 L Estimated GFR > 60 > 60 BUN/Creatinine Ratio 10.3 11.5 Glucose 127 H 122 H Calcium 8.2 L 8.1 L Magnesium Prealbumin Alpha Fetoprotein 3.6 07/23/22 05:36 WBC 7.4 RBC 2.28 L Hgb 7.8 L Hct 22.0 L MCV 96.3 MCH 34.1 H MCHC 35.4 RDW 14.2 Plt Count 131 L Neut % (Auto) 91.0 H Lymph % (Auto) 6.5 L [place] % (Auto) 2.1 L Eos % (Auto) 0.1 L Baso % (Auto) 0.3 Neut # (Auto) 6700 Lymph # (Auto) 500 L [place] # (Auto) 200 Eos # (Auto) 0 Baso # (Auto) 0 Sodium Potassium Chloride Carbon Dioxide BUN Creatinine Estimated GFR BUN/Creatinine Ratio Glucose Calcium Magnesium Prealbumin Alpha Fetoprotein Exam Vital Signs (past 8 hours): - 07/23/22 01:00 07/23/22 01:00 07/23/22 02:00 Pulse Rate 57 L Respiratory Rate 12 Blood Pressure 122/82 120/78 Pulse Oximetry 94 Oxygen Delivery Method 07/23/22 02:00 07/23/22 03:00 07/23/22 03:00 Pulse Rate 60 60 Respiratory Rate 10 L 10 L Blood Pressure 109/71 Pulse Oximetry 93 91 Oxygen Delivery Method 07/23/22 04:00 07/23/22 04:00 07/23/22 04:00 Pulse Rate 60 Respiratory Rate 10 L Blood Pressure 106/73 Pulse Oximetry 94 Oxygen Delivery Method Room Air 07/23/22 05:00 07/23/22 05:00 07/23/22 06:00 Pulse Rate 73 Respiratory Rate 13 Blood Pressure 102/71 108/75 Pulse Oximetry Oxygen Delivery Method 07/23/22 06:00 07/23/22 07:00 07/23/22 07:00 Pulse Rate 54 L 54 L Respiratory Rate 11 L 11 L Blood Pressure 113/82 Pulse Oximetry 94 95 Oxygen Delivery Method 07/23/22 08:00 07/23/22 08:00 Pulse Rate 57 L Respiratory Rate 13 Blood Pressure 110/75 Pulse Oximetry 96 Oxygen Delivery Method Oxygen Delivery Method Room Air Oxygen Flow Rate 0 Assessment & Plan Assessment & Plan narrative: NEURO: # Decondition -- Seek PT/OT and OOB as tolerated RESP: -- On room air -- Encourage IS and OOB -- Goal SpO2 > 88% CVS: # Shock -- Resolved -- Monitor off pressor -- Sepsis rx as below -- DC stress dose steroids once off of pressor for 24 hours -- MAP goal > 65 : # Hyponatremia -- Secondary to hypovolemia hyponatremia q/ a query component of SIADH from post fluid expansion -- Off all IVF -- On fluid restriction 1.5 liters -- Added salt tablet -- Goal Na 133 by tomorrow at 5 am HEME: # Anemia -- Unclear etiology -- Possible related to MDS vs ACD -- Daily CBC -- Goal Hb > 7 ENDO: # Concern for hypothyroidism -- TSH normal w/ low FT4 and FT3 suggestive of sick euthyroid -- Monitor off thyroid replacement therapy -- Needs repeat TSH in 4-6 weeks D/w RN. Time Spent With Patient Critical Care time: I spent a total of 31 minutes of critical care time on this patient's care today; this time is exclusive of procedural time.
[2022-07-23] MEDS: SODIUM CHLORIDE 1,000 MG TABLET 1000 MG PO ×2 (10:21→15:39)
[2022-07-23] MEDS: THIAMINE 200 MG in SODIUM CHLORIDE 0.9% 100 ML 408 MG IV (10:22)
[2022-07-23 10:44] LABS: BUN Creatinine Ratio 13.1 (6-22); Blood Urea Nitrogen 8 mg/dL (9-20); Calcium 8.4 mg/dL (8.4-10.2); Carbon Dioxide 26 mmol/L (22-32); Chloride 89 mmol/L (98-107); Estimated Glomerular Filt Rate > 60 mL/min (>60); Glucose 144 mg/dL (70-100); HEMOLYSIS < 15 (0-50); Potassium 3.9 mmol/L (3.4-5.1); Sodium 126 mmol/L (137-145)
[2022-07-23] MEDS: NICOTINE 14 PATCH 14 MG TOP (10:48)
--- NOTE | 2022-07-23 11:46 | PT.IIE ---
Current Diagnoses Hypo-osmolality and hyponatremia (07/20/22) Physical Therapy Inpatient Evaluation/Re-Eval M1 PT/OT-IP Prior Functional Status Start: 07/23/22 14:02 Freq: NEEDED Status: Active Protocol: Document 07/23/22 11:46 AB (Rec: 07/23/22 14:28 AB [id number]) Medical Review Prior Functional Status Medical History Reviewed Yes Communication able to make needs known Mobility and Gait pt stated that he is independent with all mobilities and ambulation without AD Social History Household Members none Living Arrangements Apartment/Condo Number of Floors (Floors) One Floor Number of Stairs To Enter/Railing? 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 Additional Social History Comment pt stated that he works at [employer] M2 PT-IP Current Condition Start: 07/23/22 14:02 Freq: NEEDED Status: Active Protocol: Document 07/23/22 11:46 AB (Rec: 07/23/22 14:28 AB [email or web address]) Physical Therapy Current Condition Current Condition Evaluation Date 07/23/22 Treatment Diagnosis hypotension; acute hyponatremia; difficulty in walking Onset Date 07/20/22 M3 PT-IP Subjective Start: 07/23/22 14:02 Freq: NEEDED Status: Active Protocol: Document 07/23/22 11:46 AB (Rec: 07/23/22 14:28 AB [email or web address]) Subjective Physical Therapy Visit Type Type Initial Evaluation Visit Start Time 11:46 Visit Stop Time 12:15 Total Visit Minutes 29 Notes pt with Hgb of 7.9 and Hct of 22, sodium level 125 and Cl: 89. hospitalist wanted pt to mobilize with PT. Pt seen for PT but activity limited and vitals monitored. Number of [employer] Visits 0 Physical Therapy Visit Comments Patient Comments pt is agreeable to do PT M4 PT-IP Mobility and Gait Start: 07/23/22 14:02 Freq: NEEDED Status: Active Protocol: Document 07/23/22 11:46 AB (Rec: 07/23/22 14:28 AB [email or web address]) PT-Bed Mobility Assessment Supine to Sit Supine to Sit Standby Assistance PT-Transfer Assessment Sit to and From Stand Sit to and from Stand Minimal Assistance,1 Person Assistance,Use of Upper Extremities Equipment Transfer Assistive Device Gait Belt,Front Wheeled Walker Orthotic/Prosthetic Devices or Brace: No Transfers Transfer Destination Chair Transfer Technique ambulated Transfer Ability Level of Assist Minimal Assistance,1 Person Assistance,Use of Upper Extremities Comments Mobility Comments BP in supine: 108/71. O2 sat 95%. pt complete supine to sit SBA. c/o slight dizziness . BP in sittin/69. dizziness subsided. BP checked again. 105/70. completed sit to stand min A and ambulated in room using FWW min A ~ 10 ft. presents agreed to sit on the chair. pt sat on the chair. positioned on the chair. BP checked : 115/68. O2 sat 94%. call light and table placed within reach. Gait Assessment Gait Gait Assistance Required: Minimum Assistance Distance (Feet) 10 Able to Maintain Weight Bearing Status Yes During Gait Assistive Devices Assistive Device Gait Belt,Front Wheeled Walker Orthotic/Prosthetic Devices or Brace: No Gait Deviations General Gait Pattern Decreased Stride Length, Decreased Feet Clearance,Step- to Gait Factors Limiting Gait Function Factors Limiting Gait Function Decreased Activity Tolerance, Decreased Strength,Pain,Poor Balance,Poor Safety Awareness PT-Balance Assessment Sitting Balance and Reactions Static Sitting Balance Ability Good Dynamic Sitting Balance Ability Good Standing Balance and Reactions Static Standing Balance Ability Fair Dynamic Standing Balance Ability Fair Device Used FWW M5 PT-IP Objective Assessments Start: 07/23/22 14:02 Freq: NEEDED Status: Active Protocol: Document 07/23/22 11:46 AB (Rec: 07/23/22 14:28 AB [email or web address]) Orientation Orientation/Cognition Level of Alertness Alert Orientation Name,Place,Situation Language Function Ability No Deficits Noted Safety Awareness Decreased Safety Awareness Memory Description No Deficits Noted Gross Range of Motion Lower Extremity ROM Assessment Within Functional Limits Strength Lower Extremity Strength Assessment Within Functional Limits Coordination Assessment Gross Coordination Gross Coordination WNL Muscle Tone Muscle Tone WNL Yes M6 PT-IP Treatment Start: 07/23/22 14:02 Freq: NEEDED Status: Active Protocol: Document 07/23/22 11:46 AB (Rec: 07/23/22 14:28 AB [email or web address]) Physical Therapy Treatment Education Education Provided Safety M7 PT-IP Assessment and Plan Start: 07/23/22 14:02 Freq: NEEDED Status: Active Protocol: Document 07/23/22 11:46 AB (Rec: 07/23/22 14:28 AB [email or web address]) PT Summary Assessment and Plan Potential Rehabilitation Potential Fair Status of Condition at Evaluation Evolving Summary Impairments Pain,ROM,Strength,Balance, Coordination,Sensation,Tone, Cognition,Bed Mobility, Transfers,Gait,Activity Tolerance Assessment Summary pt requiring min A with transfer and ambulation using FWW. presents with decrease activity tolerance affecting mobility. pt lives alone and needs to be more independent than current level and may require SNF rehab. will continue to assess progress. Goals Bed Mobility Goal Independent Transfer Goal Independent,Front Wheeled Walker Gait Goal Independent,Front Wheel Walker Gait Distance 200 Other Goals improve transfers and ambulation without AD ~ 200 ft SBA up/down 1 step using FWW/ without AD SBA Days to Meet Goals 10 Frequency of Treatment Frequency Of Treatment Once a Day Treatment Plan Physical Therapy Treatment Plan Bed Mobility Training,Transfer Training,Gait Training, Therapeutic Exercise,Balance Retraining,Discharge Planning, Hot or Cold Pack,Neuromuscular Re-ed,Coordination Retraining ,Manual Therapy Precautions Other Precautions falls, BP Recommendations To Nursing Amount of Assist Needed 1 Person Assist Discharge Recommendations PT Discharge Recommendations SNF Rehab Equipment Needed for Home Before FWW if going home and not safe Discharge without AD Transportation Needs at Discharge Wheelchair/Cabulance
[2022-07-23 13:21] LABS: Hemoglobin 8.6 g/dL (13.5-17.5)
--- NOTE | 2022-07-23 14:47 | OT.IP.EVAL ---
Current Diagnoses Hypo-osmolality and hyponatremia (07/20/22) Occupational Therapy Inpatient Evaluation/Re-Eval M1 PT/OT-IP Prior Functional Status Start: 07/23/22 14:02 Freq: NEEDED Status: Active Protocol: Document 07/23/22 14:58 CGR (Rec: 07/23/22 15:14 R [id number]) Medical Review Prior Functional Status Medical History Reviewed Yes Communication Pt is an effective verbal communicator. Pt states that he is able to speak faster with his teeth in. Mobility and Gait pt stated that he is independent with all mobilities and ambulation without AD Activities of Daily Living and IADL's Pt was IND in all ADLs and IADls at baseline. Social History Household Members none Living Arrangements Apartment/Condo Number of Floors (Floors) One Floor Number of Stairs To Enter/Railing? pt lives in a basement apartment with 1 step to enter but has to walk down a pathway from his parking spot. pt was unable to state if the path was ramped of if there were more steps but states that it is about a drop of 8 feet over the pathway. Home Environment Standard Height Toilet,Walk in Shower Employment Status [employer] Employed Additional Social History Comment pt stated that he works at [employer] and started 3 weeks ago. 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 M1 PT/OT-IP Prior Functional Status Start: 07/23/22 14:57 Freq: NEEDED Status: Active Protocol: Document 07/23/22 14:58 CGR (Rec: 07/23/22 15:14 R [id number]) Medical Review Prior Functional Status Medical History Reviewed Yes Communication Pt is an effective verbal communicator. Pt states that he is able to speak faster with his teeth in. Mobility and Gait pt stated that he is independent with all mobilities and ambulation without AD Activities of Daily Living and IADL's Pt was IND in all ADLs and IADls at baseline. Social History Household Members none Living Arrangements Apartment/Condo Number of Floors (Floors) One Floor Number of Stairs To Enter/Railing? pt lives in a basement apartment with 1 step to enter but has to walk down a pathway from his parking spot. pt was unable to state if the path was ramped of if there were more steps but states that it is about a drop of 8 feet over the pathway. Home Environment Standard Height Toilet,Walk in Shower Employment Status [employer] Employed Additional Social History Comment pt stated that he works at [employer] and started 3 weeks ago. 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 M2 OT-IP Current Condition Start: 07/23/22 14:57 Freq: Status: Active Protocol: Document 07/23/22 14:58 CGR (Rec: 07/23/22 15:14 CGR [id number]) Occupational Therapy Current Condition Current Condition Evaluation Date 07/23/22 Treatment Diagnosis acute hyponatremia Diagnosis Onset Date 07/20/22 M3 OT- IP Subjective and Pain Start: 07/23/22 14:57 Freq: Status: Active Protocol: Document 07/23/22 14:58 CGR (Rec: 07/23/22 15:14 CGR [id number]) OT- Subjective Occupational Therapy Visit Type Type Initial Evaluation Visit Start Time 14:24 Visit Stop Time 14:47 Total Visit Minutes 23 Notes Pt leaving room for walk around the nursing station when OT entered. OT Pain Assessment Pain When Pain Assessed At Rest Pain Present Pain Present Denied Pain M4 OT- IP ADL's Start: 07/23/22 14:57 Freq: Status: Active Protocol: Document 07/23/22 14:58 CGR (Rec: 07/23/22 15:14 CGR [id number]) OT [id number] Comments OT Self-Feeding Comments not meal time OT ADL-Grooming Comments OT Grooming Comments not performed OT ADL-Oral Care Comments Oral Care Comments not performed OT ADL-Dressing General Eval Lower Body Dressing Ability Independent Areas Needing Assistance Socks Comments OT Dressing Comments pt was able to don socks seated EOB OT ADL-Toileting Comments OT Toileting Comments not performed, pt had just completed with nursing prior to OT entering. OT ADL-Bathing Comments OT Bathing Comments not performed M5 OT- IP IADL's Start: 07/23/22 14:57 Freq: Status: Active Protocol: Document 07/23/22 14:58 CGR (Rec: 07/23/22 15:14 CGR [id number]) OT-Instrumental Activities of Daily Living Deficits IADL Deficits Identified Deficits Home Safety Awareness Awareness of Need for Assistance at Home Decreased Awareness Ability to Problem Solve Emergency Able to Problem Solve Situations Medication Management Medication Management Comments concerns regarding pts ability to perform at this time Money Management Money Management Comments concerns regarding pts ability to perform at this time Meal Preparation Meal Preparation Comments concerns regarding pts ability to perform at this time Content Manager Content Manager Comments concerns regarding pts ability to perform at this time Driving Driving Comments concerns regarding pts ability to perform at this time M6 OT- IP Functional Cognition Start: 07/23/22 14:57 Freq: Status: Active Protocol: Document 07/23/22 14:58 CGR (Rec: 07/23/22 15:14 CGR [id number]) Cognitive Factors Limiting Selfcare Function Cognitive Ability Level of Alertness Alert,Confusional State Patient Orientation Name,Age,Birthday,Month,Date, Year,Day of Week,Place, Situation Attention Span Ability Capable of Focused Attention, Capable of Sustained Attention Ability to Follow Commands Able to Follow One Step Commands with Increased Time, Able to Follow One Step Commands with Repetition Cognitive Comments Cognitive Assessment Comments Pt's speech and processing are delayed. Pt states that he can speak faster with his teeth in. Will perform SLUMS tomorrow. OT- Vision and Hearing OT- Hearing Assessment OT- Hearing Assessment WFL OT- Vision Assessment Visual Acuity Glasses For Reading Visual Attentiveness WFL Occular Pursuits WFL Visual Convergence WFL M7 OT- IP Mobility and Balance Start: 07/23/22 14:57 Freq: Status: Active Protocol: Document 07/23/22 14:58 CGR (Rec: 07/23/22 15:14 CGR [id number]) OT- Bed Mobility Assessment Sit to Supine Sit to Supine Assist Standby Assistance Scooting Scooting to Edge of Bed Standby Assistance OT-Transfer Assessment Sit to and From Stand Sit to and from Stand Standby Assistance Transfers Transfer Ability Standby Assistance Technique Transfer Technique Stand Step Pivot Devices Transfer Assistive Devices Front Wheeled Walker Comments Mobility Comments mobility around the nurses station. OT- Gait Assessment Gait Gait Assistance Required: Standby Assistance Assistive Devices Assistive Device Front Wheeled Walker Comments Gait Ability Comments mobility around the nursing station OT- Balance Assessment Sitting Balance and Reactions Static Sitting Balance Ability Good Dynamic Sitting Balance Ability Good M8 OT- IP Objective Assessments Start: 07/23/22 14:57 Freq: Status: Active Protocol: Document 07/23/22 14:58 CGR (Rec: 07/23/22 15:14 CGR [id number]) OT Gross Range of Motion Upper Extremity Range of Motion Assessment Within Functional Limits OT Strength Upper Extremity Strength Assessment Within Functional Limits Comments Strength Comments 4+/5 OT- Coordination Assessment Upper Extremity Finger to Nose Test Within Functional Limits Finger Tapping Test Within Functional Limits OT-Muscle Tone Assessment Muscle Tone WNL Yes OT Sensation Assessment Edema Edema Present Edema Comments BLE, pt states that he has had swelling to BLE for the last few weeks since starting at [facility] M9 OT- IP Assessment and Plan Start: 07/23/22 14:57 Freq: Status: Active Protocol: Document 07/23/22 14:58 CGR (Rec: 07/23/22 15:14 CGR [id number]) OT Summary Assessment and Plan Potential Rehabilitation Potential Good Analytic Complexity at Evaluation Moderate Summary OT Impairments Balance,Functional Cognition, Functional Mobility,Grooming, Dressing,Toileting,Bathing, Toilet Transfers,Shower Transfers,Activity Tolerance Progress Towards Goals Progressing Toward Goals Assessment Summary Pt presents as a moderate complexity evaluation s/p admit after being found down. Pt with acute hyponatremia, shock, and anemia. Goals Grooming Goal Independent Dressing Goal Independent Toileting Goal Independent Bathing Goal Independent Toilet Transfer Goal Independent Shower Transfer Goal Independent Days to Meet Goals 15 Frequency of Treatment Frequency Of Treatment Once a Day Treatment Plan OT Treatment Plan ADL Training,Functional Cognition Training,Functional Mobility,Patient/Family Education,Discharge Planning Other Treatment Recommendations and Next shower, cog assessment Treatment Focus Discharge Recommendations OT Discharge Recommendations Home vs SNF Other Discharge Recommendations Pt appears to be making significant strides and will likely progress to being safe for discharge home. Transportation Needs at Discharge Private Vehicle
[2022-07-23 16:18] LABS: Blood Urea Nitrogen 9 mg/dL (9-20); Calcium 8.2 mg/dL (8.4-10.2); Carbon Dioxide 27 mmol/L (22-32); Chloride 92 mmol/L (98-107); Estimated Glomerular Filt Rate > 60 mL/min (>60); Glucose 119 mg/dL (70-100); HEMOLYSIS < 15 (0-50); Potassium 3.8 mmol/L (3.4-5.1); Sodium 129 mmol/L (137-145)
--- NOTE | 2022-07-23 17:56 | DIET.CONS ---
Addendum entered by Mariel Burnette 07/23/22 18:05: Pt is on fluid restriction. Discussed option to have ONS added. He would like to incorporate this in his fluids. If he decides he would prefer water over ONS he can d/c and we will determine other pro options. Original Note: Dietary Consultation Note Admission Date: 07/20/2022 12:26 Assessment: 56 y/o M admitted after being found passed out in his car. PMH hypothyroidism. Endorses -20# over 6 months indicating 12.5% loss over 6 months (moderate). Based on wt this admission -11% loss (moderate) Mild depressed temples and interosseous. Diet recall indicates high frequency of eating out. Recently moved to a place where he does not have a kitchen. Has microwave and mini fridge. States the weight loss started after starting a new job and he was eating quality reduced. More fast food and take out. Ht: 185.42 cm Wt: 72.8 kg BMI: 20.9 UBW: 81.8kg reported Last BM: 07/19/22 (07/20/22 14:06) MNA: 12 Sundeep Score: 17 Diet: 07/22/22 Dinner General (Regular) Diet Diet Modifications: 1500L fluid restriction Nutrition Percent Meal Consumed 100% 07/23/22 09:31 Percent Meal Consumed 25% 07/22/22 19:00 Labs: RBC 2.28 X10^6/uL (4.5-5.9) L 07/23/22 05:36 Hgb 8.6 g/dL (13.5-17.5) L 07/23/22 13:08 Hct 22.0 % (41-53) L 07/23/22 05:36 Creatinine 0.60 mg/dL (0.66-1.25) L 07/23/22 15:56 Lactate 1.5 mmol/L (0.7-2.1) 07/20/22 10:00 Ferritin 574 ng/mL (18-464) H 07/20/22 10:00 Nutrition Diagnosis: Chronic moderate protein calorie malnutrition r/t lifestyle changes altering ability to cook, potential metabolism concerns aeb >10% wt loss over 6 months and mild fat and muscle loss. Interventions: ONS daily EER: 2000 kcals (28kcal/kg per BMI) 110g PRO (1.5g/kg per malnutrition) Monitoring/Evaluations: ONS tolerance, weight Electronically Signed by: Mariel Burnette 07/23/22 17:56 Clinical Dietitian [address] [address]
--- NOTE | 2022-07-23 19:47 | PC.NURSE ---
Addendum entered by Sylwia Tran R.N. 07/23/22 19:52: I agree with all charting on this patient, Sylwia Tran RN Original Note: Pt A&O x 4, no C/O pain. Ambulated in unit, up to chair with therapy. BP WNL, on RA using I.S. Appetite improving, passing gas, no BM. Na improving, H&H stable.
--- NOTE | 2022-07-23 20:29 | PM.ICURNDS ---
- Date Patient Seen: 07/23/22 Time Patient Seen: 20:30 :: This patient was seen via real time interactive two-way audiovisual telecommunication. Note: Na improving slowly w/ salt tablet and fluid restriction. DC salt tablet as Na up to 129. Cont trending Na every 4 hours. D/w RN.
[2022-07-23 21:56] LABS: BUN Creatinine Ratio 18.3 (6-22); Blood Urea Nitrogen 11 mg/dL (9-20); Calcium 8.6 mg/dL (8.4-10.2); Carbon Dioxide 32 mmol/L (22-32); Chloride 96 mmol/L (98-107); Estimated Glomerular Filt Rate > 60 mL/min (>60); Glucose 126 mg/dL (70-100); HEMOLYSIS < 15 (0-50); Magnesium 2.3 mg/dL (1.6-2.3); Potassium 3.5 mmol/L (3.4-5.1); Sodium 134 mmol/L (137-145)
[2022-07-24] VITALS (24 sets, daily range): BP systolic 108–132; BP diastolic 68–84; PULSE 68–135; RESP 10–29; TEMP 36.3–36.7; O2SAT 90–97
[2022-07-24] MEDS: MIDODRINE HCL 5 MG TABLET 10 MG PO ×3 (05:43→18:42)
[2022-07-24] MEDS: LEVOTHYROXINE 50 MCG TABLET PO (05:43)
[2022-07-24] MEDS: HYDROCORTISONE 100 MG/2 ML VIAL IV (05:43)
[2022-07-24 06:25] LABS: Add Manual Diff / Slide Review YES; Hemoglobin 9.1 g/dL (13.5-17.5); Mean Corpuscular HGB Conc 34.8 % (30-36); Mean Corpuscular Hemoglobin 34.1 PG (26-34); Mean Corpuscular Volume 97.9 fL (80-100); Platelet Count 165 X10^3/uL (150-400); Red Blood Cell Count 2.66 X10^6/uL (4.5-5.9); Red Cell Distribution Width 14.7 % (11.6-14.8); White Blood Cell Count 9.3 X10^3/uL (4.5-11.0)
[2022-07-24 06:47] LABS: Neutrophils Absolute Manual 8649 /uL (3000-5900); Total Cells Counted 100
[2022-07-24 06:48] LABS: Macrocytosis 1+
--- NOTE | 2022-07-24 06:58 | PC.NURSE ---
As preceptor, I agree with Alicia RNs assessment, intervention, evaluation, and documentation.
--- NOTE | 2022-07-24 08:33 | PM.PN.1 ---
Subjective Subjective Date Patient Seen: 07/24/22 Time Patient Seen: 12:00 Interval history: Patient feeling much better today and his spirits appear lifted. 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 He is very thankful for all the care he is receiving. Exam Vital Signs (past 8 hours): - 07/24/22 01:00 07/24/22 01:02 07/24/22 01:59 Temperature Pulse Rate 68 76 Respiratory Rate 18 10 L 11 L Blood Pressure Pulse Oximetry 93 94 Oxygen Delivery Method Oxygen Flow Rate 07/24/22 04:00 07/24/22 02:00 07/24/22 02:00 Temperature 97.4 F L Pulse Rate 74 Respiratory Rate 11 L Blood Pressure 113/75 Pulse Oximetry 94 Oxygen Delivery Method Oxygen Flow Rate 07/24/22 04:00 07/24/22 04:00 07/24/22 04:01 Temperature Pulse Rate 68 68 Respiratory Rate 12 11 L Blood Pressure 109/72 Pulse Oximetry 94 94 Oxygen Delivery Method Oxygen Flow Rate 07/24/22 04:00 07/24/22 05:17 07/24/22 05:59 Temperature Pulse Rate 76 83 Respiratory Rate 13 15 Blood Pressure Pulse Oximetry 93 Oxygen Delivery Method Room Air Oxygen Flow Rate 07/24/22 06:00 07/24/22 06:02 07/24/22 06:02 Temperature Pulse Rate 83 84 Respiratory Rate 14 16 Blood Pressure 108/71 Pulse Oximetry 94 Oxygen Delivery Method Oxygen Flow Rate 07/24/22 07:00 07/24/22 08:06 Temperature 98 F Pulse Rate 71 69 Respiratory Rate 11 L 12 Blood Pressure 116/68 Pulse Oximetry 94 90 L Oxygen Delivery Method Oxygen Flow Rate 0 Oxygen Delivery Method Room Air Oxygen Flow Rate 0 Narrative Exam Narrative: GEN: pale but appears rejuvenated today HEENT: PERRL, moist mucous membranes. NECK: trachea midline, no JVD, no lymphadenopathy noted CV: regular rate and rhythm, no murmurs PULM: clear bilaterally, no wheezes, rhonchi, rales ABD: soft, nontender, nondistended, no organomegaly, normal bowel sounds EXT: warm and well perfused, swollen appearance of fingers NEURO: awake, alert, oriented,? slow to respond SKIN: Pale with slight yellowish tint to skin. Objective Labs Result Diagrams: 07/24/22 05:59 07/24/22 15:05 Labs: Laboratory Results - last 24 hr 07/23/22 07/23/22 07/23/22 10:18 13:08 15:56 WBC RBC Hgb 8.6 L Hct MCV MCH MCHC RDW Plt Count Neut % (Auto) Lymph % (Auto) Garfield % (Auto) Eos % (Auto) Baso % (Auto) Lymph # (Auto) Garfield # (Auto) Baso # (Auto) Total Counted Seg Neutrophils % Lymphocytes % (Manual) Monocytes % (Manual) Neutrophils # (Manual) RBC Morphology Macrocytosis Sodium 126 L 129 L Potassium 3.9 3.8 Chloride 89 L 92 L Carbon Dioxide 26 27 BUN 8 L 9 Creatinine 0.61 L 0.60 L Estimated GFR > 60 > 60 BUN/Creatinine Ratio 13.1 15.0 Glucose 144 H 119 H Calcium 8.4 8.2 L Magnesium 07/23/22 07/23/22 07/24/22 21:37 21:37 05:59 WBC 9.3 RBC 2.66 L Hgb 9.1 L Hct 26.0 L MCV 97.9 MCH 34.1 H MCHC 34.8 RDW 14.7 Plt Count 165 Neut % (Auto) Not Reportable Lymph % (Auto) Not Reportable Garfield % (Auto) Not Reportable Eos % (Auto) Not Reportable Baso % (Auto) Not Reportable Lymph # (Auto) Not Reportable Garfield # (Auto) Not Reportable Baso # (Auto) Not Reportable Total Counted 100 Seg Neutrophils % 93.0 H Lymphocytes % (Manual) 5.0 L Monocytes % (Manual) 2.0 Neutrophils # (Manual) 8649 H RBC Morphology Not Reportable Macrocytosis 1+ H Sodium 134 L Potassium 3.5 Chloride 96 L Carbon Dioxide 32 BUN 11 Creatinine 0.60 L Estimated GFR > 60 BUN/Creatinine Ratio 18.3 Glucose 126 H Calcium 8.6 Magnesium 2.3 PFSH Social History household members: none Smoking Status: Current every day smoker alcohol intake: current Assessment & Plan Assessment & Plan narrative: # 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 Also skin pigmentation yellowish. -dramatically improved BP and sodium with initiation of IV solu-medrol 100mg TID -spoke with endo who recommended transitioning to po steroids and following up with endo as outpatient for ACTH stim test # Acute hyponatremia secondary to glucocorticoid deficiency vs SIADH, resolved -initialy Na 118, increased to 136 now -TSH normal, urine Na 45 and urine Osm 505 suggesting possible glucocorticoid deficiency -random cortisol 1.44, continue steroids -also possible SIADH so was on fluid restriction 1.5L daily # Acute shock of unknown etiology, resolved -initially requiring levphed at 3mcg/min and midodrine 10mg TID -likely hypovolemic, however cannot rule adrenal insufficiency -stopped cefepime as BCx neg at 48 hours -possibly due to glucocorticoid deficiency given low cortisol -continue IV solu-medrol 100mg TID, will transition to po steroids on 07/24 -MRI brain normal without pituitary abnormality -levophed weaned off on 07/23 # Neutropenia, acute and history of iron deficiency anemia -initial ANC 800 on admission, currently 7500 but may be due to steroids -attempted transfer for bone marrow biopsy but turned down by [facility] -unclear if patient would benefit from bone marrow biopsy as ANC has improved dramatically with steroids # Anasarca with small pericardial, and pleural effusions and intra-abdominal fluid -unclear etiology, but possibly due to adrenal insufficiency -should have ACTH stim test as outpatient -echo with trivial pericardial effusion and EF 60-65% # Elevated CK Trending down. Will continue to follow. # Sick euthyroid syndrome with history of hypothyroidism -T3/T4 low with normal TSH, patient notes he used to be on synthroid several years ago but stopped -curbsided endocrinology who recommended starting 50mcg synthroid given h/o hypothyroidism # Chronic moderate protein calorie malnutrition with >10% wt loss over 6 months and mild fat and muscle loss. -dietary consulted Dispo: Home in 1-2 days likely with HH. CODE: Full Proxy: Gilmer Spicer, father Time Spent With Patient Critical Care time: I spent a total of [] minutes of critical care time on this patient's care today; this time is exclusive of procedural time.
[2022-07-24] MEDS: THIAMINE 200 MG in SODIUM CHLORIDE 0.9% 100 ML 408 MG IV (08:35)
[2022-07-24] MEDS: POTASSIUM CHLORIDE 20 MEQ TAB 40 MEQ PO (08:35)
[2022-07-24] MEDS: NICOTINE 14 PATCH 14 MG TOP (08:36)
[2022-07-24] MEDS: ENOXAPARIN 40 MG/0.4 ML SYRINGE SUBCUT (08:37)
[2022-07-24 08:50] LABS: BUN Creatinine Ratio 18.1 (6-22); Blood Urea Nitrogen 13 mg/dL (9-20); Calcium 8.8 mg/dL (8.4-10.2); Carbon Dioxide 29 mmol/L (22-32); Chloride 97 mmol/L (98-107); Estimated Glomerular Filt Rate > 60 mL/min (>60); Glucose 114 mg/dL (70-100); HEMOLYSIS < 15 (0-50); Potassium 3.7 mmol/L (3.4-5.1); Sodium 135 mmol/L (137-145)
--- NOTE | 2022-07-24 09:24 | PM.PN.EICU ---
Subjective Subjective IF CAMERA ACTIVATED, patient seen via real-time interactive audiovisual communication: Camera activated Consent obtained for tele-engineer automated equipment care: Yes Patient Location: ICU Provider location (State): [place] Other participants/roles: RN and Dr. Beltran Interval history: Remains off vasopressor.. Na up to 134. DC salt tablet. Cortisol level is extremely low which raises concern for AI. Will transition stress dose steroids to hydrocortisone PO. Current Medications Current Medications Medications: Home Medications No Known Home Medications 07/20/22 [History Confirmed 07/20/22] Visit Medications (administered) Generic Name Dose Route Start Last Admin Trade Name Freq PRN Reason Stop Dose Admin Acetaminophen 650 mg 07/20/22 14:06 07/20/22 18:00 Acetaminophen 325 Mg Tablet PO 650 mg Q6HR PRN Administration Fever/Mild Pain (1-3) Enoxaparin Sodium 40 mg 07/21/22 09:00 07/24/22 08:37 Enoxaparin 40 Mg/0.4 Ml Syringe SUBCUT 40 mg DAILY NAINA Administration Heparin Sodium (Porcine) 50 unit 07/20/22 15:00 07/22/22 07:45 Heparin Flush (Cl/Picc/Mid-Line) 50 Unit/5 Ml Syringe IV 50 unit PRN PRN Administration Flush Heparin Sodium (Porcine) 50 unit 07/20/22 21:00 07/24/22 08:37 Heparin Flush (Cl/Picc/Mid-Line) 50 Unit/5 Ml Syringe IV 50 unit BID NAINA Administration Hydrocortisone 100 mg 07/20/22 15:55 07/24/22 05:43 Hydrocortisone 100 Mg/2 Ml Vial IV 100 mg Q8HR NAINA Administration Thiamine HCl 200 mg/ Sodium 102 mls @ 408 mls/hr 07/22/22 09:00 07/24/22 08:35 Chloride IV 408 mls/hr DAILY NAINA Administration Levothyroxine Sodium 50 mcg 07/24/22 06:00 07/24/22 05:43 Levothyroxine 50 Mcg Tablet PO 50 mcg DAILY@0600 NAINA Administration Midodrine 10 mg 07/22/22 12:00 07/24/22 05:43 Midodrine Hcl 5 Mg Tablet PO 10 mg 0600,1200,1800 NAINA Administration Nicotine 14 mg 07/22/22 17:00 07/24/22 08:36 Nicotine 14 Patch TOP 14 mg DAILY NAINA Administration Objective Labs Result Diagrams: 07/24/22 05:59 07/24/22 05:59 Labs: Laboratory Results - last 24 hr 07/23/22 07/23/22 07/23/22 10:18 13:08 15:56 WBC RBC Hgb 8.6 L Hct MCV MCH MCHC RDW Plt Count Neut % (Auto) Lymph % (Auto) Evangeline % (Auto) Eos % (Auto) Baso % (Auto) Lymph # (Auto) Evangeline # (Auto) Baso # (Auto) Total Counted Seg Neutrophils % Lymphocytes % (Manual) Monocytes % (Manual) Neutrophils # (Manual) RBC Morphology Macrocytosis Sodium 126 L 129 L Potassium 3.9 3.8 Chloride 89 L 92 L Carbon Dioxide 26 27 BUN 8 L 9 Creatinine 0.61 L 0.60 L Estimated GFR > 60 > 60 BUN/Creatinine Ratio 13.1 15.0 Glucose 144 H 119 H Calcium 8.4 8.2 L Magnesium 07/23/22 07/23/22 07/24/22 21:37 21:37 05:59 WBC 9.3 RBC 2.66 L Hgb 9.1 L Hct 26.0 L MCV 97.9 MCH 34.1 H MCHC 34.8 RDW 14.7 Plt Count 165 Neut % (Auto) Not Reportable Lymph % (Auto) Not Reportable Evangeline % (Auto) Not Reportable Eos % (Auto) Not Reportable Baso % (Auto) Not Reportable Lymph # (Auto) Not Reportable Evangeline # (Auto) Not Reportable Baso # (Auto) Not Reportable Total Counted 100 Seg Neutrophils % 93.0 H Lymphocytes % (Manual) 5.0 L Monocytes % (Manual) 2.0 Neutrophils # (Manual) 8649 H RBC Morphology Not Reportable Macrocytosis 1+ H Sodium 134 L Potassium 3.5 Chloride 96 L Carbon Dioxide 32 BUN 11 Creatinine 0.60 L Estimated GFR > 60 BUN/Creatinine Ratio 18.3 Glucose 126 H Calcium 8.6 Magnesium 2.3 07/24/22 05:59 WBC RBC Hgb Hct MCV MCH MCHC RDW Plt Count Neut % (Auto) Lymph % (Auto) Evangeline % (Auto) Eos % (Auto) Baso % (Auto) Lymph # (Auto) Evangeline # (Auto) Baso # (Auto) Total Counted Seg Neutrophils % Lymphocytes % (Manual) Monocytes % (Manual) Neutrophils # (Manual) RBC Morphology Macrocytosis Sodium 135 L Potassium 3.7 Chloride 97 L Carbon Dioxide 29 BUN 13 Creatinine 0.72 Estimated GFR > 60 BUN/Creatinine Ratio 18.1 Glucose 114 H Calcium 8.8 Magnesium Exam Vital Signs (past 8 hours): - 07/24/22 01:59 07/24/22 04:00 07/24/22 02:00 Temperature 97.4 F L Pulse Rate 76 74 Respiratory Rate 11 L 11 L Blood Pressure Pulse Oximetry 94 94 Oxygen Delivery Method Oxygen Flow Rate 07/24/22 02:00 07/24/22 04:00 07/24/22 04:00 Temperature Pulse Rate 68 Respiratory Rate 12 Blood Pressure 113/75 109/72 Pulse Oximetry 94 Oxygen Delivery Method Oxygen Flow Rate 07/24/22 04:01 07/24/22 04:00 07/24/22 05:17 Temperature Pulse Rate 68 76 Respiratory Rate 11 L 13 Blood Pressure Pulse Oximetry 94 93 Oxygen Delivery Method Room Air Oxygen Flow Rate 07/24/22 05:59 07/24/22 06:00 07/24/22 06:02 Temperature Pulse Rate 83 83 84 Respiratory Rate 15 14 16 Blood Pressure Pulse Oximetry 94 Oxygen Delivery Method Oxygen Flow Rate 07/24/22 06:02 07/24/22 07:00 07/24/22 08:06 Temperature 98 F Pulse Rate 71 69 Respiratory Rate 11 L 12 Blood Pressure 108/71 116/68 Pulse Oximetry 94 90 L Oxygen Delivery Method Oxygen Flow Rate 0 Oxygen Delivery Method Room Air Oxygen Flow Rate 0 Narrative Exam Narrative: Sitting up in bed. Speaking in full sentence. Assessment & Plan Assessment & Plan narrative: NEURO: # Decondition -- Seek PT/OT and OOB as tolerated RESP: -- On room air -- Encourage IS and OOB as tolerated CVS: # Shock -- Resolved -- Off presors -- MAP goal > 65 : # Hyponatremia -- Secondary to hypovolemia and possible AI -- Na 134 -- Cont fluid restriction 1.5 liters per day -- AI rx as below -- Space out Na check to q8hr ENDO: # Concern for AI -- Recommend switching IV hydrocortisone to PO -- Will need endocrinology consultation as outpatient # Sick euthyroid -- On synthroid 50 mcg D/w RN and Dr. Beltran. Time Spent With Patient Critical Care time: I spent a total of 31 minutes of critical care time on this patient's care today; this time is exclusive of procedural time.
[2022-07-24 09:33] LABS: BUN Creatinine Ratio 18.3 (6-22); Blood Urea Nitrogen 13 mg/dL (9-20); Calcium 8.9 mg/dL (8.4-10.2); Carbon Dioxide 27 mmol/L (22-32); Chloride 98 mmol/L (98-107); Estimated Glomerular Filt Rate > 60 mL/min (>60); Glucose 120 mg/dL (70-100); HEMOLYSIS < 15 (0-50); Potassium 3.7 mmol/L (3.4-5.1); Sodium 136 mmol/L (137-145)
--- NOTE | 2022-07-24 10:46 | OT.IP.TRT ---
Current Diagnoses Hypo-osmolality and hyponatremia (07/20/22) Occupational Therapy Treatment Note M2 OT-IP Current Condition Start: 07/23/22 14:57 Freq: Status: Active Protocol: Document 07/23/22 14:58 CGR (Rec: 07/23/22 15:14 CGR [id number]) Occupational Therapy Current Condition Current Condition Evaluation Date 07/23/22 Treatment Diagnosis acute hyponatremia Diagnosis Onset Date 07/20/22 M3 OT- IP Subjective and Pain Start: 07/23/22 14:57 Freq: Status: Active Protocol: Document 07/24/22 16:11 CGR (Rec: 07/24/22 16:23 CGR [id number]) OT- Subjective Occupational Therapy Visit Type Type Progress Note Visit Start Time 10:18 Visit Stop Time 10:46 Total Visit Minutes 28 Notes Pt is very loquacious throughout session stating that he feels like he is finally getting good medical care. Occupational Therapy Visit Comments Patient Comments Dr. Beltran actually listens to me. OT Pain Assessment Pain When Pain Assessed At Rest Pain Present Pain Present Denied Pain M4 OT- IP ADL's Start: 07/23/22 14:57 Freq: Status: Active Protocol: Document 07/24/22 16:11 CGR (Rec: 07/24/22 16:23 CGR [id number]) OT [id number] Comments OT Self-Feeding Comments not meal time OT ADL-Grooming Comments OT Grooming Comments not performed OT ADL-Oral Care Comments Oral Care Comments not performed OT ADL-Dressing Comments OT Dressing Comments not performed OT ADL-Toileting General Evaluation Toileting Ability Standby Assistance Areas Needing Assistance Manage Clothing Comments OT Toileting Comments pt was able to demonstrate his ability to get on and off the toilet OT ADL-Bathing Comments OT Bathing Comments not performed d/t central line in neck M5 OT- IP IADL's Start: 07/23/22 14:57 Freq: Status: Active Protocol: Document 07/23/22 14:58 CGR (Rec: 07/23/22 15:14 CGR [id number]) OT-Instrumental Activities of Daily Living Deficits IADL Deficits Identified Deficits Home Safety Awareness Awareness of Need for Assistance at Home Decreased Awareness Ability to Problem Solve Emergency Able to Problem Solve Situations Medication Management Medication Management Comments concerns regarding pts ability to perform at this time Money Management Money Management Comments concerns regarding pts ability to perform at this time Meal Preparation Meal Preparation Comments concerns regarding pts ability to perform at this time Kayaking Instructor Kayaking Instructor Comments concerns regarding pts ability to perform at this time Driving Driving Comments concerns regarding pts ability to perform at this time M6 OT- IP Functional Cognition Start: 07/23/22 14:57 Freq: Status: Active Protocol: Document 07/24/22 16:11 CGR (Rec: 07/24/22 16:23 CGR [id number]) Cognitive Factors Limiting Selfcare Function Cognitive Ability Level of Alertness Alert Patient Orientation Name,Age,Birthday,Month,Date, Year,Day of Week,Place, Situation Cognitive Tests SLUMS Pt participated in [employer]. Pt scored a 26/30 putting him just below normal. Pt missed a simple math question, had difficulty naming animals, and was unable to recite numbers backwards. Cognitive Comments Cognitive Assessment Comments Pt appears to be at his baseline. M7 OT- IP Mobility and Balance Start: 07/23/22 14:57 Freq: Status: Active Protocol: Document 07/24/22 16:11 CGR (Rec: 07/24/22 16:23 CGR [id number]) OT- Bed Mobility Assessment Supine to Sit Supine to Sit Assist Standby Assistance Sit to Supine Sit to Supine Assist Standby Assistance Scooting Scooting to Edge of Bed Standby Assistance OT-Transfer Assessment Sit to and From Stand Sit to and from Stand Standby Assistance Transfers Transfer Ability Minimal Assistance Technique Transfer Destination Bed,Toilet Transfer Technique Stand Step Pivot Devices Transfer Assistive Devices Gait Belt,Front Wheeled Walker Comments Mobility Comments Pt had a LOB turing the corner into the bathroom that required assist. Pt states that the walker is cumbersome during turns. M8 OT- IP Objective Assessments Start: 07/23/22 14:57 Freq: Status: Active Protocol: Document 07/23/22 14:58 CGR (Rec: 07/23/22 15:14 CGR [id number]) OT Gross Range of Motion Upper Extremity Range of Motion Assessment Within Functional Limits OT Strength Upper Extremity Strength Assessment Within Functional Limits Comments Strength Comments 4+/5 OT- Coordination Assessment Upper Extremity Finger to Nose Test Within Functional Limits Finger Tapping Test Within Functional Limits OT-Muscle Tone Assessment Muscle Tone WNL Yes OT Sensation Assessment Edema Edema Present Edema Comments BLE, pt states that he has had swelling to BLE for the last few weeks since starting at [facility] M9 OT- IP Assessment and Plan Start: 07/23/22 14:57 Freq: Status: Active Protocol: Document 07/24/22 16:11 CGR (Rec: 07/24/22 16:23 CGR [id number]) OT Summary Assessment and Plan Potential Rehabilitation Potential Good Analytic Complexity at Evaluation Moderate Summary OT Impairments Balance,Functional Cognition, Functional Mobility,Grooming, Dressing,Toileting,Bathing, Toilet Transfers,Shower Transfers,Activity Tolerance Progress Towards Goals Progressing Toward Goals Assessment Summary Pt presents as a moderate complexity evaluation s/p admit after being found down. Pt with acute hyponatremia, shock, and anemia. Pt is progressing with therapy services and participated in the UMS cognitive assessment today scoring a 26/30. Pt will continue to benefit from therapy services. Goals Grooming Goal Independent Dressing Goal Independent Toileting Goal Independent Bathing Goal Independent Toilet Transfer Goal Independent Shower Transfer Goal Independent Days to Meet Goals 15 Frequency of Treatment Frequency Of Treatment Once a Day Treatment Plan OT Treatment Plan ADL Training,Functional Cognition Training,Functional Mobility,Patient/Family Education,Discharge Planning Other Treatment Recommendations and Next shower, cog assessment Treatment Focus Discharge Recommendations OT Discharge Recommendations Home vs SNF Other Discharge Recommendations Pt appears to be making significant strides and will likely progress to being safe for discharge home. Transportation Needs at Discharge Private Vehicle
--- NOTE | 2022-07-24 12:25 | PT.IPTN ---
Current Diagnoses Hypo-osmolality and hyponatremia (07/20/22) Physical Therapy Treatment Note M2 PT-IP Current Condition Start: 07/23/22 14:02 Freq: NEEDED Status: Active Protocol: Document 07/23/22 11:46 AB (Rec: 07/23/22 14:28 AB [id number]) Physical Therapy Current Condition Current Condition Evaluation Date 07/23/22 Treatment Diagnosis hypotension; acute hyponatremia; difficulty in walking Onset Date 07/20/22 M3 PT-IP Subjective Start: 07/23/22 14:02 Freq: NEEDED Status: Active Protocol: Document 07/24/22 11:59 KS (Rec: 07/24/22 13:28 KS [id number]) Subjective Physical Therapy Visit Type Type Treatment Note Visit Start Time 11:59 Visit Stop Time 12:25 Total Visit Minutes 26 Number of MANUAL ARTS THERAPY TEACHER Visits 1 Physical Therapy Visit Comments Patient Comments pt is agreeable to do PT M4 PT-IP Mobility and Gait Start: 07/23/22 14:02 Freq: NEEDED Status: Active Protocol: Document 07/24/22 11:59 KS (Rec: 07/24/22 13:28 KS [id number]) PT-Bed Mobility Assessment Supine to Sit Supine to Sit Standby Assistance Scooting Scooting to Edge of Bed Standby Assistance PT-Transfer Assessment Sit to and From Stand Sit to and from Stand Contact Guard Assistance,1 Person Assistance,Use of Upper Extremities Equipment Transfer Assistive Device Gait Belt,Front Wheeled Walker Orthotic/Prosthetic Devices or Brace: No Transfers Transfer Destination Chair Transfer Technique ambulated Transfer Ability Level of Assist Standby Assistance,Contact Guard Assistance,1 Person Assistance,Use of Upper Extremities Comments Mobility Comments Pt in bed upon arrival, offers he is feeling much better and pleased w/ conversations w/ Dr, OT, and director of physiotherapy services. SBA for bed mobility, CGA for sit<> stand w/ FWW. Pt ambulated ~30 ft around room w/ FWW CGA - decreased stride and foot clearance and narrow based gait w/ cues for FWW use. Pt then trialed ambulation w/o AD and was able to complete additional 30 ft CGA. No LOB, however pt remains slightly unsteady due to weakness. Lunch arrived and pt left in chair w/ all needs in reach. Gait Assessment Gait Gait Assistance Required: Contact Guard Assist Distance (Feet) 60 Able to Maintain Weight Bearing Status Yes During Gait Assistive Devices Assistive Device None,Gait Belt,Front Wheeled Walker Orthotic/Prosthetic Devices or Brace: No Gait Deviations General Gait Pattern Decreased Stride Length, Decreased Feet Clearance, Narrow Based Gait,Step-to Gait Factors Limiting Gait Function Factors Limiting Gait Function Decreased Activity Tolerance, Decreased Strength,Poor Balance Comments Gait Comments Please refer to mobility section for details. PT-Balance Assessment Sitting Balance and Reactions Static Sitting Balance Ability Good Dynamic Sitting Balance Ability Good Standing Balance and Reactions Static Standing Balance Ability Fair Dynamic Standing Balance Ability Fair Device Used no AD M5 PT-IP Objective Assessments Start: 07/23/22 14:02 Freq: NEEDED Status: Active Protocol: Document 07/23/22 11:46 AB (Rec: 07/23/22 14:28 AB [id number]) Orientation Orientation/Cognition Level of Alertness Alert Orientation Name,Place,Situation Language Function Ability No Deficits Noted Safety Awareness Decreased Safety Awareness Memory Description No Deficits Noted Gross Range of Motion Lower Extremity ROM Assessment Within Functional Limits Strength Lower Extremity Strength Assessment Within Functional Limits Coordination Assessment Gross Coordination Gross Coordination WNL Muscle Tone Muscle Tone WNL Yes M6 PT-IP Treatment Start: 07/23/22 14:02 Freq: NEEDED Status: Active Protocol: Document 07/24/22 11:59 KS (Rec: 07/24/22 13:28 KS [id number]) Physical Therapy Treatment Education Education Provided Safety M7 PT-IP Assessment and Plan Start: 07/23/22 14:02 Freq: NEEDED Status: Active Protocol: Document 07/24/22 11:59 KS (Rec: 07/24/22 13:28 KS [id number]) PT Summary Assessment and Plan Potential Rehabilitation Potential Good Summary Impairments Pain,ROM,Strength,Balance, Coordination,Sensation,Tone, Cognition,Bed Mobility, Transfers,Gait,Activity Tolerance Progress Towards Goals Slow Progress due to Medical Issues,Slow Progress due to Activity Tolerance Assessment Summary Pt requiring SBA to CGA during treatment today. Able to tolerate 30 ft ambulation w/ FWW and additional 30 ft w/o AD. Pt remains limited by weakness and is slightly unsteady, however had no LOB. He would benefit from HHPT or OPPT to improve strength and functional mobility independence. Goals Bed Mobility Goal Independent Transfer Goal Independent,Front Wheeled Walker Gait Goal Independent,Front Wheel Walker Gait Distance 200 Other Goals improve transfers and ambulation without AD ~ 200 ft SBA up/down 1 step using FWW/ without AD SBA Days to Meet Goals 10 Frequency of Treatment Frequency Of Treatment Once a Day Treatment Plan Physical Therapy Treatment Plan Bed Mobility Training,Transfer Training,Gait Training, Therapeutic Exercise,Balance Retraining,Discharge Planning, Hot or Cold Pack,Neuromuscular Re-ed,Coordination Retraining ,Manual Therapy Precautions Other Precautions falls, BP Recommendations To Nursing Amount of Assist Needed 1 Person Assist Discharge Recommendations PT Discharge Recommendations Home with Assistance,Home Health Equipment Needed for Home Before FWW if going home and not safe Discharge without AD Transportation Needs at Discharge Private Vehicle
[2022-07-24] MEDS: HYDROCORTISONE 10 MG TABLET 7.5 MG PO (12:54)
[2022-07-24 15:26] LABS: BUN Creatinine Ratio 17.3 (6-22); Blood Urea Nitrogen 13 mg/dL (9-20); Carbon Dioxide 31 mmol/L (22-32); Chloride 99 mmol/L (98-107); Estimated Glomerular Filt Rate > 60 mL/min (>60); Glucose 112 mg/dL (70-100); HEMOLYSIS < 15 (0-50); Potassium 4.2 mmol/L (3.4-5.1); Sodium 137 mmol/L (137-145)
[2022-07-25 04:00] VITALS: BP 90/57; PULSE 57; RESP 17; TEMP 36.6; O2SAT 95
[2022-07-25] MEDS: HYDROCORTISONE 10 MG TABLET 15 MG PO (06:35)
[2022-07-25] MEDS: LEVOTHYROXINE 50 MCG TABLET PO (06:35)
[2022-07-25] MEDS: MIDODRINE HCL 5 MG TABLET 10 MG PO ×3 (06:35→17:46)
[2022-07-25 08:33] LABS: Add Manual Diff / Slide Review NO; Basophils Absolute Auto 0 /uL (0-100); Basophils Percent Auto 0.3 % (0-2); Eosinophils Absolute Auto 0 /uL (0-450); Eosinophils Percent Auto 0.3 % (2-4); Hematocrit 23.7 % (41-53); Hemoglobin 8.2 g/dL (13.5-17.5); Lymphocytes Absolute Auto 1200 /uL (1100-4500); Mean Corpuscular HGB Conc 34.7 % (30-36); Monocytes Absolute Auto 200 /uL (0-900); Monocytes Percent Auto 3.6 % (3-14); Neutrophils Absolute Auto 4800 /uL (1500-7000); Neutrophils Percent Auto 76.8 % (50-75); Platelet Count 165 X10^3/uL (150-400); Red Blood Cell Count 2.42 X10^6/uL (4.5-5.9); Red Cell Distribution Width 14.9 % (11.6-14.8); White Blood Cell Count 6.3 X10^3/uL (4.5-11.0)
[2022-07-25 08:41] LABS: Blood Urea Nitrogen 16 mg/dL (9-20); Calcium 8.7 mg/dL (8.4-10.2); Carbon Dioxide 31 mmol/L (22-32); Chloride 101 mmol/L (98-107); Estimated Glomerular Filt Rate > 60 mL/min (>60); Glucose 81 mg/dL (70-100); HEMOLYSIS < 15 (0-50); Potassium 3.3 mmol/L (3.4-5.1); Sodium 138 mmol/L (137-145)
[2022-07-25 08:43] VITALS: BP 105/71; PULSE 60; RESP 16; TEMP 36.6; O2SAT 97
--- NOTE | 2022-07-25 08:43 | P.PN_ITS ---
Subjective Subjective Date Patient Seen: 07/25/22 Time Patient Seen: 13:00 Interval history: Patient feeling much better. No complaints today other than minor stiffness in his ankles. Exam Vital Signs (past 8 hours): - 07/25/22 04:00 Temperature 97.8 F Pulse Rate 57 L Respiratory Rate 17 Blood Pressure 90/57 L Pulse Oximetry 95 Oxygen Delivery Method Room Air Oxygen Flow Rate 0 Narrative Exam Narrative: GEN: pale but appears rejuvenated today HEENT: PERRL, moist mucous membranes. NECK: trachea midline, no JVD, no lymphadenopathy noted CV: regular rate and rhythm, no murmurs PULM: clear bilaterally, no wheezes, rhonchi, rales ABD: soft, nontender, nondistended, no organomegaly, normal bowel sounds EXT: warm and well perfused, swollen appearance of fingers NEURO: awake, alert, oriented,? slow to respond SKIN: Pale with slight yellowish tint to skin. Objective Labs Result Diagrams: 07/25/22 08:00 07/25/22 08:00 Labs: Laboratory Results - last 24 hr 07/24/22 07/24/22 07/24/22 05:59 09:15 15:05 WBC RBC Hgb Hct MCV MCH MCHC RDW Plt Count Neut % (Auto) Lymph % (Auto) Faulkner % (Auto) Eos % (Auto) Baso % (Auto) Neut # (Auto) Lymph # (Auto) Faulkner # (Auto) Eos # (Auto) Baso # (Auto) Sodium 135 L 136 L 137 Potassium 3.7 3.7 4.2 Chloride 97 L 98 99 Carbon Dioxide 29 27 31 BUN 13 13 13 Creatinine 0.72 0.71 0.75 Estimated GFR > 60 > 60 > 60 BUN/Creatinine Ratio 18.1 18.3 17.3 Glucose 114 H 120 H 112 H Calcium 8.8 8.9 9.0 07/25/22 07/25/22 08:00 08:00 WBC 6.3 RBC 2.42 L Hgb 8.2 L Hct 23.7 L MCV 98.0 MCH 34.0 MCHC 34.7 RDW 14.9 H Plt Count 165 Neut % (Auto) 76.8 H Lymph % (Auto) 19.0 L Faulkner % (Auto) 3.6 Eos % (Auto) 0.3 L Baso % (Auto) 0.3 Neut # (Auto) 4800 Lymph # (Auto) 1200 Faulkner # (Auto) 200 Eos # (Auto) 0 Baso # (Auto) 0 Sodium 138 Potassium 3.3 L Chloride 101 Carbon Dioxide 31 BUN 16 Creatinine 0.89 Estimated GFR > 60 BUN/Creatinine Ratio 18.0 Glucose 81 Calcium 8.7 [facility] Social History household members: none Smoking Status: Current every day smoker alcohol intake: current Assessment & Plan Assessment & Plan narrative: # 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 Also skin pigmentation yellowish. -dramatically improved BP and sodium with initiation of IV solu-medrol 100mg TID -spoke with endo who recommended transitioning to po steroids and following up with endo as outpatient for ACTH stim test -continue hydrocortisone po 15mg qAM and 7.5mg qnoon daily # Acute hyponatremia secondary to glucocorticoid deficiency vs SIADH, resolved -initialy Na 118, increased to 136 now -TSH normal, urine Na 45 and urine Osm 505 suggesting possible glucocorticoid deficiency -random cortisol 1.44, continue steroids -also possible SIADH so was on fluid restriction 1.5L daily -patient to limit water intake once discharged, was previously drinking 2-3L per day # Acute shock of unknown etiology, resolved -initially requiring levphed at 3mcg/min and midodrine 10mg TID -likely hypovolemic, however cannot rule adrenal insufficiency -stopped cefepime as BCx neg at 48 hours -possibly due to glucocorticoid deficiency given low cortisol -continue IV solu-medrol 100mg TID, will transition to po steroids on 07/24 -MRI brain normal without pituitary abnormality -levophed weaned off on 07/23 # Neutropenia, acute and history of iron deficiency anemia -initial ANC 800 on admission, currently 7500 but may be due to steroids -attempted transfer for bone marrow biopsy but turned down by [facility] -unclear if patient would benefit from bone marrow biopsy as ANC has improved dramatically with steroids # Anasarca with small pericardial, and pleural effusions and intra-abdominal fluid -unclear etiology, but possibly due to adrenal insufficiency -should have ACTH stim test as outpatient -echo with trivial pericardial effusion and EF 60-65% # Elevated CK Trending down. # Sick euthyroid syndrome with history of hypothyroidism -T3/T4 low with normal TSH, patient notes he used to be on synthroid several years ago but stopped -curbsided endocrinology who recommended starting synthroid given h/o hypot hyroidism -start 100mcg synthroid per 1.6mcg/kg # Chronic moderate protein calorie malnutrition with >10% wt loss over 6 months and mild fat and muscle loss. -dietary consulted Dispo: Home on 07/26 with possible HH. CODE: Full Proxy: Gilmer Spicer, father Time Spent With Patient Critical Care time: I spent a total of [] minutes of critical care time on this patient's care today; this time is exclusive of procedural time.
[2022-07-25] MEDS: ENOXAPARIN 40 MG/0.4 ML SYRINGE SUBCUT (09:11)
[2022-07-25] MEDS: THIAMINE 200 MG in SODIUM CHLORIDE 0.9% 100 ML 408 MG IV (09:11)
[2022-07-25] MEDS: NICOTINE 14 PATCH 14 MG TOP ×2 (09:12→21:14)
[2022-07-25] MEDS: SODIUM CHLORIDE 0.9% FLUSH 10 ML IV (09:12)
[2022-07-25] MEDS: POTASSIUM CHLORIDE 20 MEQ TAB 40 MEQ PO ×2 (10:01→15:15)
--- NOTE | 2022-07-25 10:56 | CM.DPC ---
DCP Home Per MD, pt making good progress and pending his BP today could likely d/c home today vs tomorrow. Per PT, pt could likely benefit from HH at d/c but they are aware that pt has no insurance yet and no PCP. SW saw pt ambulating independently in the hallway and pt confirms he is feeling much better, I realize how weak I have gotten since I was admitted but walking feels good and I'm so thankful to be better. Pt does not anticipate any needs at this time and plans to attempt to use his hospital bill towards meeting [employer] criteria for insurance. SW emailed AD Counselors to determine if they have any suggestions to help pt with applying. Plan: SW to follow closely for plan of pt d/c home today vs tomorrow pending medical stability. Pt has [facility] application and information for [facility] and [facility] for outpt f/u. NANCY Christensen
[2022-07-25] MEDS: HYDROCORTISONE 10 MG TABLET 7.5 MG PO (12:21)
--- NOTE | 2022-07-25 16:22 | PT-IP ANOTE ---
Pt has been ambulating in the hallway Ind today and when I checked with nursing this afternoon he was showering Ind. He will DC home tomorrow. He was not seen by PT today
[2022-07-25 17:50] VITALS: BP 123/83; PULSE 84; RESP 18; O2SAT 100
[2022-07-25 20:00] VITALS: BP 113/75; PULSE 64; RESP 19; TEMP 36.8; O2SAT 97
--- NOTE | 2022-07-25 21:37 | PC.NURSE ---
Pt cooperative with staff and care. Pt denies pain and states feeling much better than last week. Pt requested another nicotine patch and previous one came off in shower. Pt responds and talks very slowly, often taking 15 seconds to form words for response. Pt very talkative w/ staff.
[2022-07-26 04:00] VITALS: BP 99/65; PULSE 61; RESP 17; TEMP 36.9; O2SAT 96
[2022-07-26] MEDS: LEVOTHYROXINE 50 MCG TABLET PO (06:04)
[2022-07-26] MEDS: MIDODRINE HCL 5 MG TABLET 10 MG PO ×2 (06:04→11:29)
[2022-07-26] MEDS: HYDROCORTISONE 10 MG TABLET 15 MG PO (06:23)
[2022-07-26 06:34] LABS: Mean Corpuscular HGB Conc 34.9 % (30-36); Mean Corpuscular Hemoglobin 34.4 PG (26-34); Mean Corpuscular Volume 98.7 fL (80-100); Platelet Count 174 X10^3/uL (150-400); Red Blood Cell Count 2.33 X10^6/uL (4.5-5.9); Red Cell Distribution Width 14.6 % (11.6-14.8)
[2022-07-26 06:40] LABS: Add Manual Diff / Slide Review YES; BUN Creatinine Ratio 26.6 (6-22); Blood Urea Nitrogen 21 mg/dL (9-20); Calcium 8.7 mg/dL (8.4-10.2); Carbon Dioxide 29 mmol/L (22-32); Chloride 103 mmol/L (98-107); Estimated Glomerular Filt Rate > 60 mL/min (>60); Glucose 87 mg/dL (70-100); HEMOLYSIS 24 (0-50); Potassium 3.7 mmol/L (3.4-5.1); Sodium 138 mmol/L (137-145)
[2022-07-26 07:18] LABS: Macrocytosis 1+; Neutrophils Absolute Manual 3660 /uL (3000-5900); Total Cells Counted 100
--- NOTE | 2022-07-26 09:24 | P.DS_ITS ---
History of Present Illness History of Present Illness Date Patient Seen: 07/26/22 Chief complaint: Found passed out Narrative: Per Dr. Zayas, Mr. Spicer is a 56M with PMH iron deficiency anemia who was found passed out in his car. He states he was on thyroid medication years ago, but was told he no longer had this as a problem. He has been feeling completely his normal self until a week ago when he presented to the hospital with weakness. He was also feeling cold and he was lightheaded. He was noted to have leukopenia and hyponatremia. He was given IV fluids and ultimately discharged home. He felt somewhat better. He states he had no nausea, vomiting, diarrhea. He felt cold, but no fevers. No cough, shortness of breath, confusion, chest pain, dysuria. No new rashes. He drinks 2-3 etoh a week. He does not smoke, no other illicit substances. No travel, no tick exposures. In the ED workup was done, vitals notable initially for blood pressure 83/58. No temp documented. Heart rate in the 50s. Labs notable for WBC 3.3, with 30% PMNs. Hgb 11.6. INR 1.1. Na 118. K 3.3. Creatinine 0.87. Lactate 1.5. CK 2298. Trop negative. Chest xray shows right IJ in appropriate position. CT head with no acute process. CT chest, abd/pelvis shows small pericardial effusion, trace pleural effusions, and small volume intra-abdominal fluid with scattered lung nodules. He was ordered for IV fluids and admitted for further treatment. Family history: Father with DM, no family history of cancer or rheumatologic disease Discharge Providers Provider Date of admission: 07/20/22 12:26 Discharge Date: 07/26/22 Consults: 07/20/22 14:06 Consult to Tele-transition nurse Routine Comment: Consulting Provider: Carolyn [employer]int[employer] Reason for consultation: Rheumatologist services Has provider been notified: No 07/23/22 09:00 Consult to Occupational Therapy Evaluate & Treat Comment: Physician Instructions: Evaluate and treat 07/23/22 09:03 Consult to Physical Therapy Evaluate & Treat Comment: Physician Instructions: Evaluate and Treat 07/23/22 09:24 Consult to Dietitian, Adult Routine Comment: Reason For Exam: not eating, malnourished Discharge provider: Ailrio Ramos DO Summary Hospital Course Discharge Diagnosis: Please see hospital course by problem list noted below: Hospital Course: # 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 Also skin pigmentation yellowish. -dramatically improved BP and sodium with initiation of IV solu-medrol 100mg TID -spoke with endo who recommended transitioning to po steroids and following up with endo as outpatient for ACTH stim test -continue hydrocortisone po 15mg qAM and 7.5mg qnoon daily # Acute hyponatremia secondary to glucocorticoid deficiency vs SIADH, resolved -initialy Na 118, increased to 136 now -TSH normal, urine Na 45 and urine Osm 505 also suggesting a glucocorticoid deficiency. -random cortisol 1.44, continue steroids -also possible SIADH so was on fluid restriction 1.5L daily -patient to limit water intake once discharged, was previously drinking 2-3L per day # Acute shock , probably hypovolemic, resolved -initially requiring levphed at 3mcg/min and midodrine 10mg TID. Was weaned from levophed after 2 days. -likely hypovolemic, however cannot rule adrenal insufficiency -stopped cefepime as BCx neg at 48 hours -possibly due to glucocorticoid deficiency given low cortisol -continued IV solu-medrol 100mg TID, transitioned to steroids as noted above. -MRI brain normal without pituitary abnormality # Neutropenia, acute and history of iron deficiency anemia -initial ANC 800 on admission, currently 7500 but may be due to steroids -attempted transfer for bone marrow biopsy but turned down by [facility] -unclear if patient would benefit from bone marrow biopsy as ANC has improved dramatically with steroids # Anasarca with small pericardial, and pleural effusions and intra-abdominal fluid -unclear etiology, but possibly due to adrenal insufficiency -should have ACTH stim test as outpatient -echo with trivial pericardial effusion and EF 60-65% # Elevated CK Trended down, probably in setting of hypovolemia and shock. # Sick euthyroid syndrome with history of hypothyroidism -T3/T4 low with normal TSH, patient notes he used to be on synthroid several years ago but stopped -discussed with endocrinology via phone who recommended starting synthroid given h/o hypothyroidism -started 100mcg synthroid per 1.6mcg/kg, to continue as an outpatient. Follow up TSH with PCP and endocrine. # Chronic moderate protein calorie malnutrition with >10% wt loss over 6 months and mild fat and muscle loss. -his protein malnutrition contributed to his degree of hypovolemia and shock. This led to increased length of stay in the hospital. He was seen by dietary and nutritional intake was much improved with initiation of above therapies. Time Spent with Patient Time spent: Greater than 30 minutes Exam Vital Signs (past 8 hours): - 07/26/22 04:00 Temperature 98.5 F Pulse Rate 61 Respiratory Rate 17 Blood Pressure 99/65 Pulse Oximetry 96 Oxygen Delivery Method Room Air Oxygen Flow Rate 0 Narrative Exam Narrative: GEN: tall thin, slightly malnourished male ambulating in the room, dressed in his own clothes. HEENT: PERRL, moist mucous membranes. NECK: trachea midline, no JVD, no lymphadenopathy noted CV: regular rate and rhythm, no murmurs PULM: clear bilaterally, no wheezes, rhonchi, rales ABD: soft, nontender, nondistended, no organomegaly, normal bowel sounds EXT: warm and well perfused, swollen appearance of fingers NEURO: awake, alert, oriented,?no focal deficits, ambulating in hospital room by himself unassisted. SKIN: no rash or lesions Objective Labs Result Diagrams: 07/26/22 05:55 07/26/22 05:55 Labs: Laboratory Results - last 24 hr 07/26/22 07/26/22 05:55 05:55 WBC 6.0 RBC 2.33 L Hgb 8.0 L Hct 23.0 L MCV 98.7 MCH 34.4 H MCHC 34.9 RDW 14.6 Plt Count 174 Neut % (Auto) Surveying Or Spatial Science Technician Lymph % (Auto) Surveying Or Spatial Science Technician Dooly % (Auto) Surveying Or Spatial Science Technician Eos % (Auto) Surveying Or Spatial Science Technician Baso % (Auto) Surveying Or Spatial Science Technician Neut # (Auto) Surveying Or Spatial Science Technician Lymph # (Auto) Surveying Or Spatial Science Technician Dooly # (Auto) Surveying Or Spatial Science Technician Eos # (Auto) Surveying Or Spatial Science Technician Baso # (Auto) Surveying Or Spatial Science Technician Total Counted 100 Seg Neutrophils % 61.0 Lymphocytes % (Manual) 35.0 D Atypical Lymphs % 1.0 H Monocytes % (Manual) 2.0 Eosinophils % (Manual) 1.0 L Neutrophils # (Manual) 3660 RBC Morphology Not Reportable Macrocytosis 1+ H Sodium 138 Potassium 3.7 Chloride 103 Carbon Dioxide 29 BUN 21 H Creatinine 0.79 Estimated GFR > 60 BUN/Creatinine Ratio 26.6 H Glucose 87 Calcium 8.7 PFSH Social History household members: none Smoking Status: Current every day smoker alcohol intake: current Discharge Plan Discharge Plan Patient Disposition: Home Provider Discharge Comment: You were admitted to the hospital with a low sodium level amongst many other issues. You possibly have addisson's disease and need follow up with a PCP and referral to an diversity intern for further evaluation and testing. You may return to work on 08/02/2022 once recovered from your current hospitalization. Discharge orders & Medications Prescriptions: New nicotine 14 mg/24 hr Patch 24 Hour 14 mg topical DAILY Qty: 7 0RF levothyroxine 100 mcg capsule 100 mcg PO DAILY@0600 Qty: 90 3RF nicotine 7 mg/24 hr patch 24 hour 1 patch transdermal Q24H Qty: 7 0RF midodrine 5 mg Tablet 10 mg PO 0600,1200,1800 Qty: 180 0RF hydrocortisone 5 mg tablet 7.5 mg PO QNOON 30 Days Qty: 45 0RF hydrocortisone 5 mg tablet 15 mg PO DAILY@0700 Qty: 60 0RF Diet/Activity/Treatments Diet: Diet as Tolerated Activity: As tolerated Visit Report/Discharge Packet Instructions: Tips to Help You Stop Smoking, DI for Addisons Disease, Nicotine Transdermal Patch
[2022-07-26 10:02] VITALS: BP 110/68; PULSE 69; RESP 18; TEMP 35.9; O2SAT 96
--- NOTE | 2022-07-26 11:15 | PT.IPTN ---
Current Diagnoses Hypo-osmolality and hyponatremia (07/20/22) Physical Therapy Treatment Note M2 PT-IP Current Condition Start: 07/23/22 14:02 Freq: NEEDED Status: Discharge Protocol: Document 07/26/22 10:39 SP (Rec: 07/26/22 16:47 SP [id number]) Physical Therapy Current Condition Current Condition Evaluation Date 07/23/22 Treatment Diagnosis hypotension; acute hyponatremia; difficulty in walking Onset Date 07/20/22 M3 PT-IP Subjective Start: 07/23/22 14:02 Freq: NEEDED Status: Discharge Protocol: Document 07/26/22 10:39 SP (Rec: 07/26/22 16:47 SP [id number]) Subjective Physical Therapy Visit Type Type Treatment Note Visit Start Time 10:39 Visit Stop Time 11:15 Total Visit Minutes 36 Notes Hgb 8.0 L and Hct 23.0 L, sodium 138 WNL. Number of ADMIN DIR Visits 2 Physical Therapy Visit Comments Patient Comments Pt agreeable to working with therapy I am going to be leaving soon via landlord ride to hotel for few days while he clears a step (over grown/ shallow) due to feels unsteady on it and like may fall. Patient Goals go to hotel for few nights. Therapy Pain Assessment Pain Present Pain Present Denied Pain M4 PT-IP Mobility and Gait Start: 07/23/22 14:02 Freq: NEEDED Status: Discharge Protocol: Document 07/26/22 10:39 SP (Rec: 07/26/22 16:47 SP [id number]) PT-Transfer Assessment Sit to and From Stand Sit to and from Stand Independent,Use of Upper Extremities Equipment Transfer Assistive Device None Orthotic/Prosthetic Devices or Brace: No Transfers Transfer Destination Chair Transfer Technique ambulated no AD Transfer Ability Level of Assist Standby Assistance Comments Mobility Comments Pt seated on room bench when arrived, stated waiting to DC. Agreeable to gait to stair for assessment. STS no AD or UE support steady, gait in room 30 ft stable no sways/LOB . Agreeable to hallway, stairs and return to room. Gait demonstrates occasional scissor stepping, improved with cues for WBOS core fac. He reports his ankles are very weak and notices feels unsteady wavy gait but no LOB. Pt completed approx 550 ft gait down to stairs completed 6 stairs no HR/support, cued slower pacing core fac to decrease heavy heel strike descend receiprocal stepping, SBA no LOB. Pt returned to room, ADMIN DIR provided HOs, theraband and reviewed ankle and hip abd strengthening HEP to progress and suggested if feels need AD (SPC/FWW in future) or referral to PT to contact physican and also [employer] to borrow to less expense with good feedback response didn't think needed and felt confident with HEP or self carryover. Pt is ok to return home when medically cleared. Gait Assessment Gait Gait Assistance Required: Independent,Standby Assistance Distance (Feet) 550 Able to Maintain Weight Bearing Status Yes During Gait Assistive Devices Assistive Device None,Gait Belt Orthotic/Prosthetic Devices or Brace: No Gait Deviations General Gait Pattern Antalgic,Narrow Based Gait Factors Limiting Gait Function Factors Limiting Gait Function Poor Balance Comments Gait Comments see mobility comments. Stair Climbing Assessment Evaluation Level of Assist On Stairs Independent,Standby Assistance Devices Stair Climbing Assistive Devices None Technique/Endurance Stair Climbing Direction Ascend and Descend Stair Climbing Technique Step Over Step Number of Steps Climbed 3 Stair Climbing Set # Repetitions (reps) 1 Comments Stair Climbing Comments see mobility comments PT-Balance Assessment Sitting Balance and Reactions Static Sitting Balance Ability Good Dynamic Sitting Balance Ability Good Standing Balance and Reactions Static Standing Balance Ability Good Dynamic Standing Balance Ability Fair Device Used no AD Comments Other Balance Tests/Deviations/Treatment -NBOS EC: 30 sec stable : -Semitandem EC: LLE forward 30 s, RLE forward LOB 10% A recovery and cue open eyes. -Tandem EO: unable to maintain LOB self recovery. M5 PT-IP Objective Assessments Start: 07/23/22 14:02 Freq: NEEDED Status: Discharge Protocol: Document 07/23/22 11:46 AB (Rec: 07/23/22 14:28 AB [id number]) Orientation Orientation/Cognition Level of Alertness Alert Orientation Name,Place,Situation Language Function Ability No Deficits Noted Safety Awareness Decreased Safety Awareness Memory Description No Deficits Noted Gross Range of Motion Lower Extremity ROM Assessment Within Functional Limits Strength Lower Extremity Strength Assessment Within Functional Limits Coordination Assessment Gross Coordination Gross Coordination WNL Muscle Tone Muscle Tone WNL Yes M6 PT-IP Treatment Start: 07/23/22 14:02 Freq: NEEDED Status: Discharge Protocol: Document 07/26/22 10:39 SP (Rec: 07/26/22 16:47 SP [id number]) Physical Therapy Treatment Education Education Provided Safety Other Treatments Other Treatment Performed Instructed HEP: seated ankle PF, DF, EV; seated resisted hip abd w/ TB #2; stand: heel raises and STS cued hip hinge slow descend and improved no flop sit on bend post cues. Pt good understanding of HEP and provided HOs. Placed copy in chart to scan in to EMR. M7 PT-IP Assessment and Plan Start: 07/23/22 14:02 Freq: NEEDED Status: Discharge Protocol: Document 07/26/22 10:39 SP (Rec: 07/26/22 16:47 SP [id number]) PT Summary Assessment and Plan Potential Rehabilitation Potential Good Status of Condition at Evaluation Evolving Summary Impairments Pain,ROM,Strength,Balance, Coordination,Sensation,Tone, Cognition,Bed Mobility, Transfers,Gait,Activity Tolerance Progress Towards Goals Goals Met Assessment Summary Pt requiring SBA to CGA during treatment today. Able to tolerate 30 ft ambulation w/ FWW and additional 30 ft w/o AD. Pt remains limited by weakness and is slightly unsteady, however had no LOB. He would benefit from HHPT or OPPT to improve strength and functional mobility independence. Goals Bed Mobility Goal Independent Transfer Goal Independent,Front Wheeled Walker Gait Goal Independent,Front Wheel Walker Gait Distance 200 Other Goals improve transfers and ambulation without AD ~ 200 ft SBA up/down 1 step using FWW/ without AD SBA Days to Meet Goals 10 Frequency of Treatment Frequency Of Treatment Once a Day Treatment Plan Physical Therapy Treatment Plan Bed Mobility Training,Transfer Training,Gait Training, Therapeutic Exercise,Balance Retraining,Discharge Planning, Hot or Cold Pack,Neuromuscular Re-ed,Coordination Retraining ,Manual Therapy Other Recommendations and Next Treatment Dynamic advanced balance Focus exercises/activities to reduce antalgic gait. Precautions Other Precautions falls, BP Recommendations To Nursing Amount of Assist Needed Independent,Standby Assistance Discharge Recommendations PT Discharge Recommendations Home,Home Health Equipment Needed for Home Before Suggested use of SPC, script Discharge from or borrow from [facility], pt declined. Transportation Needs at Discharge Private Vehicle
--- NOTE | 2022-07-26 11:16 | CM.DPC ---
DCP Discharge Home Per MD, pt is medically stable to d/c home today and no identified barriers to discharge. Pt has been ambulating independently without DME in the hallways the past two days. CONCRETE GUN OPERATOR completing stairs with pt this morning. VITALY received a call from pt's emergency contacts Francie who is pt's landlord stating they have some concerns with pt d/c home today. Francie states they have rented their basement apt to pt for the past 7 years but the past 2 years pt has become more reclusive, and we haven't been into his space the past two years. Landlords checked his space to prepare it for pt return and found a hoarding situation of 2 yrs worth of garbage. Landlords concerned with health and safety issues with that space and likely some undx mental health needs. VITALY encouraged Francie to make APS referral for self neglect as APS can likely also assist with community resources and checking in on pt and Francie agreeable and appreciative. VITALY also discussed the barrier of pt's lack of insurance towards getting established with PCP and also mental health but discussed [facility] and [facility] as well as provided them with [facility] contact info in case pt gets back home and has a crisis or needs stabilization although pt has not had these specific issues the past 7 years living with them. VITALY then met with pt and his landlords had been bedside after above conversation and he has passed PT for stairs and ambulation and VITALY provided pt with [employer] application again, pt already has [employer] application, info on [facility] and [facility]. Pt states landlords are requesting a couple days to clean out his room and get it safer before pt comes home so VITALY provided pt with the number to call from the Motel Voucher program to potentially give him a day or two in a motel while getting his apt cleaned up. Pt very appreciative and will call the AF for motel voucher and wait in the lobby of the hospital and stable for discharge and ambulatory. VITALY updated RN and CM Spool Fixer. Plan: Patient to discharge this morning and awaiting return call from AF for motel voucher program while landlords cleaning out his apt. Pt has resources provided and aware of his options for medical follow up. NANCY Christensen
[2022-07-26] MEDS: HYDROCORTISONE 10 MG TABLET 7.5 MG PO (11:28)
[2022-07-27 18:20] LABS: ANA Screen, IFA Negative (.)
== END 2022-07-26 12:00 | disposition home or self-care (01) | DRG 641 ==
LOC: ED 10:47 → AC 12:27 → ICU 14:16
PROVIDERS: Internal Medicine; Internal Medicine Pulmonary Disease; Neuromusculoskeletal Medicine, Sports Medicine; Nurse Practitioner Family; Student in an Organized Health Care Education/Training Program; Admitting Provider Internal Medicine; Emergency Provider Emergency Medicine; Referring Provider Emergency Medicine; Visit Provider Internal Medicine
DX: E87.1 Hypo-osmolality and hyponatremia (principal); J90 Pleural effusion, not elsewhere classified; I31.3 Pericardial effusion (noninflammatory); M62.82 Rhabdomyolysis; R57.9 Shock, unspecified; E44.0 Moderate protein-calorie malnutrition; E27.1 Primary adrenocortical insufficiency; E27.49 Other adrenocortical insufficiency; D70.9 Neutropenia, unspecified; D50.9 Iron deficiency anemia, unspecified; R60.1 Generalized edema; E07.81 Sick-euthyroid syndrome; F17.290 Nicotine dependence, other tobacco product, uncomplicated; E03.9 Hypothyroidism, unspecified; Z68.20 Body mass index [BMI] 20.0-20.9, adult; Z20.822 Contact with and (suspected) exposure to COVID-19
CPT/HCPCS: 36415; 36556; 36592; 70450; 70553; 71045; 71275; 74174; 80048; 80053; 80076; 81001; 82105; 82533; 82550; 82553; 82728; 82962; 83605; 83615; 83735; 83935; 84134; 84145; 84153; 84295; 84300; 84439; 84443; 84481; 84484; 84702; 85007; 85018; 85025; 85027; 85610; 85651; 85730; 86038; 86140; 86850; 86900; 86901; 87040; 87389; 87633; 87797; 93005; 93010; 93306; 96374; 97110; 97116; 97129; 97163; 97166; 97530; 97535; 99284; 99291; J0692; J1642; J1650; J1720; J7050; P9041

== ENCOUNTER 2025-09-27 10:15 | Emergency (ER) | payer OTHER, SELFPAY ==
[2022-07-20 14:06] VITALS: BMI 20.9
[2025-09-27 10:31] VITALS: BP 137/88; PULSE 88; RESP 16; TEMP 36.4; O2SAT 96; BMI 29.7
--- NOTE | 2025-09-27 10:39 | DI.RAD.S_ITS ---
PROCEDURE: XR ELBOW LT MIN 3V INDICATIONS: injury TECHNIQUE: 3 views of the elbow were acquired. COMPARISON: None. FINDINGS: Bones: No fractures or dislocations. No suspicious bony lesions. Soft tissues: No elbow joint effusion. No suspicious soft tissue calcifications. IMPRESSION: No acute bony abnormality or significant joint effusion. Dictated by: Manohar Hernandez M.D. on 09/27/2025 at 10:55 Approved by: Manohar Hernandez M.D. on 09/27/2025 at 10:55
--- NOTE | 2025-09-27 11:23 | ED_ITS ---
HPI - Extremity Injury (Upper) General Chief Complaint: Extremity Injury, Upper Stated Complaint: swollen left arm, Time Seen by Provider: 09/27/25 11:07 Source: patient Mode of arrival: Ambulatory History of Present Illness HPI narrative: Mr. Spicer is a pleasant 51-year-old male with a past medical history of Wero's disease, hypothyroidism, hypotension who presents to the emergency department for left bicep and forearm pain after an injury that occurred on Tuesday, x3 days. Patient was lifting a heavy bag of sand on Tuesday when he felt an abrupt pop in his left elbow/antecubital fossa region. He has since developed swelling/deformity of the elbow region near the distal bicep and the proximal forearm on the ulnar side. Patient still has full range of motion and has intact strength however with certain movements he does have sharp shooting pain in the elbow region. He is left-hand dominant and denies any prior injuries to this area. He has been using a sling. Related Data Previous Rx's ?Medication ?Instructions ?Recorded hydrocortisone 5 mg tablet 15 mg (3 x 5 mg) PO DAILY@0 700 #60 07/25/22 tabs levothyroxine 100 mcg capsule 100 mcg PO DAILY@0600 #9 0 caps 07/25/22 midodrine 5 mg tablet 10 mg (2 x 5 mg) PO 0600,120 0,1800 07/25/22 #180 tabs nicotine 14 mg/24 hr daily 14 mg topical DAILY #7 ea 0 07/25/22 transdermal patch nicotine 7 mg/24 hr daily 1 patch transdermal Q24H #7 ea 07/25/22 transdermal patch Allergies Allergy/AdvReac Type Severity Reaction Status Date / Time bupropion (From Wellbutrin) Allergy Intermediate Rash Verified 09/27/25 10:33 Penicillins Allergy Rash Verified 09/27/25 10:33 Sulfa (Sulfonamide Allergy Verified 09/27/25 10:33 Antibiotics) Review of Systems Review of Systems ROS Unobtainable: All systems reviewed & are unremarkable except as noted in HPI and below Patient History Social History household members: none Smoking Status: Former smoker alcohol intake: current Smoking Status: Former smoker tobacco type: smokeless tobacco alcohol intake frequency: a few times a week Exam Narrative Exam Narrative: GENERAL: 59 year old patient appears stated age. Well-developed patient, in no acute distress. HEAD: Atraumatic. Normocephalic. NECK: Trachea midline. Cervical ROM intact. CARDIOVASCULAR: Regular rate RESPIRATORY: ?Nonlabored respirations. ?Speaking in clear, full sentences. EXTREMITIES: On the anterior aspect of the left arm, there is mild edema and deformity of the medial distal biceps and medial proximal forearm. There is mild tenderness to palpation in the antecubital fossa region and overlying the distal biceps and proximal forearm. There is no ecchymosis erythema or skin changes. The patient still has full flexion extension range of motion of the left elbow, left wrist and abduction abduction of the left shoulder. There is no tenderness to palpation of the left shoulder, bony prominence of the left elbow or the left wrist. Flexion-extension strength is still intact and there is a negative hook test, left biceps tendon is intact. 2+ radial pulses bilaterally and sensation intact to light touch and strength intact in the distribution of median, radial, ulnar nerves bilaterally. NEURO: AOx3. ?Clear speech. ?Moves all 4 extremities appropriately. SKIN: No rash or erythema of visible areas Initial Vital Signs Initial Vital Signs: Vital Signs Temperature 97.6 F 09/27/25 10:31 Pulse Rate 88 09/27/25 10:31 Respiratory Rate 16 09/27/25 10:31 Blood Pressure 137/88 09/27/25 10:31 Pulse Oximetry 96 09/27/25 10:31 Oxygen Delivery Method Room Air 09/27/25 10:31 Course Orders Ordered: ED Orders 09/27/25 10:39 XR elbow LT min 3V Stat 09/27/25 12:21 Consult to [facility] Stat Vital Signs Vital signs: Vital Signs - 8 hr 09/27/25 10:31 09/27/25 12:44 Temperature 97.6 F Pulse Rate 88 Respiratory Rate 16 Blood Pressure 137/88 Pulse Oximetry 96 Oxygen Delivery Method Room Air Room Air MDM - Extremity Injury (Upper) Medical Records Attestation: I reviewed the patient's medical records. Imaging Data Left Elbow XR: Radiologist's Impression: PROCEDURE: XR ELBOW LT MIN 3V INDICATIONS: injury TECHNIQUE: 3 views of the elbow were acquired. COMPARISON: None. FINDINGS: Bones: No fractures or dislocations. No suspicious bony lesions. Soft tissues: No elbow joint effusion. No suspicious soft tissue calcifications. IMPRESSION: No acute bony abnormality or significant joint effusion. Dictated by: Manohar Hernandez M.D. on 09/27/2025 at 10:55 Approved by: Manohar Hernandez M.D. on 09/27/2025 at 10:55 [facility] Narrative Medical decision making narrative: 51-year-old male with a past medical history of Washburn's disease, hypothyroidism, hypotension who presents to the emergency department for left bicep and forearm pain after an injury that occurred on Tuesday, x3 days. Differential diagnosis includes but isn't limited to left biceps tendon rupture, strain, sprain, forearm strain, biceps strain, avulsion fracture, etc. On exam the patient is in no acute distress, nontoxic appearing, vital signs within normal limits. He has full flexion-extension of the left arm and he has intact flexion-extension strength of the left elbow however he does have mild edema of the distal biceps and proximal forearm muscles. Distal biceps tendon is palpable and intact, physical exam does not appear consistent with a total biceps rupture at this time. Left elbow x-ray obtained revealing no avulsion fractures or dislocations, no elbow effusion. Patient declines need for pain medication. At this time recommended sling, rice therapy, ibuprofen and Tylenol, follow up with Orthopedics for further management. Patient verbalized understanding of all information is happy with this plan. L and I form completed. He is stable for discharge home. Discharge Plan Departure Patient Disposition: Home Clinical Impression: Strain of left biceps Qualifiers: Encounter type: initial encounter Qualified Code(s): S46.212A - Strain of muscle, fascia and tendon of other parts of biceps, left arm, initial encounter Muscle strain of left forearm Qualifiers: Encounter type: initial encounter Qualified Code(s): S56.912A - Strain of uns pecified muscles, fascia and tendons at forearm level, left arm, initial encounter Instructions: DI for Forearm Muscle Strain Activity Restrictions/Additional Instructions: Dear Spicer, Thank you for coming to the emergency department. Today you were evaluated for an injury to her left arm. X-ray did not reveal any bony abnormalities with the elbow but I am concerned that you have strained the muscles of your left bicep and possible forearm as well. Please use the sling for support, you can also apply compressive wraps to the left arm to help with swelling. Please follow up with your primary care doctor and orthopedics for further management of this injury. Please use RICE therapy for your pain in addition to ibuprofen/acetaminophen. Rest the painful area. Ice the area of pain/swelling for at least 15 minutes, 4x a day. Compress the area of swelling using a brace, wrap, or splint if applied. Elevate the painful or swollen extremity by supporting it above the level of the heart with pillows when sitting or laying. Please follow up with your primary care doctor within the next 2-3 days for ER follow-up. (If you do not have a PCP you can call [phone]. ?to schedule an appointment with an [facility] Primary Care Provider) IF YOU DEVELOP ANY NEW OR WORSENING SYMPTOMS, RETURN TO THE ER! Please read the attached instructions, they highlight more specific treatments and interventions for you at home. Thank you for letting me participate in your care, Neela Lai PA-C Prescriptions: No Action nicotine 14 mg/24 hr Patch 24 Hour 14 mg topical DAILY Qty: 7 0RF levothyroxine 100 mcg capsule 100 mcg PO DAILY@0600 Qty: 90 3RF nicotine 7 mg/24 hr patch 24 hour 1 patch transdermal Q24H Qty: 7 0RF midodrine 5 mg Tablet 10 mg PO 0600,1200,1800 Qty: 180 0RF hydrocortisone 5 mg tablet 15 mg PO DAILY@0700 Qty: 60 0RF Referrals: David Kearney MD [Physician, Orthopedic Surgery] Referral Note: LEFT BICEP INJURY Stand Alone Forms: Patient Portal/API, Work Release Note
== END 2025-09-27 12:45 | disposition home or self-care (01) ==
PROVIDERS: Emergency Provider Physician Assistant
DX: S46.212A Strain of muscle, fascia and tendon of other parts of biceps, left arm, initial encounter (principal); S56.912A Strain of unspecified muscles, fascia and tendons at forearm level, left arm, initial encounter; X50.0XXA Overexertion from strenuous movement or load, initial encounter; Y99.0 Civilian activity done for income or pay
CPT/HCPCS: 73080; 99281; 99283

== ENCOUNTER → 2025-10-04 06:49 | Outpatient (CLI) | payer OTHER, SELFPAY ==
[2022-07-20 14:06] VITALS: BMI 20.9
--- NOTE | 2025-10-04 07:13 | DI.MRI.S_ITS ---
PROCEDURE: MR ELBOW LT WO CON INDICATIONS: R/O distal bicep tear/rupture TECHNIQUE: Noncontrast coronal proton density fast spin echo and T2 fast spin echo with fat saturation, axial and sagittal T1 spin echo and T2 fast spin echo with fat saturation through the elbow. COMPARISON: [facility], CR, XR ELBOW LT MIN 3V, 09/27/2025, 10:37. FINDINGS: Image quality: Excellent. Lateral structures: The lateral ulnar collateral ligament and radial collateral ligament both appear intact. The overlying common extensor tendon also appears normal. Medial structures: The ulnar collateral ligament appears intact. The overlying common flexor tendon appears normal. The ulnar nerve appears normal in size and signal within the cubital tunnel. Anterior structures: There is suggestion of high-grade partial to full- thickness rupture involving distal biceps tendon at its proximal radial insertion with up to 2 cm proximal retraction of torn tendon fibers and small to moderate amount of surrounding fluid. This is best seen on series 8, image 25. Adjacent soft tissue edema is also seen. Distal brachialis tendinosis is seen. The median and radial neurovascular bundles appear normal; no focal muscle atrophy to suggest nerve impingement. Posterior structures: The conjoint triceps tendon from the long and lateral heads appears intact. The medial head of the triceps tendon also appears normal, with direct muscle insertion onto the olecranon. No olecranon bursal fluid. Bone and cartilage: No bone marrow contusions or fractures. No osteochondral injuries. IMPRESSION: 1. Finding is suggestive of high-grade partial to full-thickness rupture involving distal biceps tendon at its proximal radial insertion with up to 2 cm proximal retraction of torn tendon fibers and small to moderate amount of adjacent fluid with soft tissue edema. 2. Distal brachialis tendinosis. 3. No marrow edema. No fracture or dislocation. Small joint effusion without intra-articular loose bodies. 4. Rest of the elbow tendons and ligaments are intact. Dictated by: Kervin Lilly M.D. on 10/04/2025 at 9:06 Approved by: Kervin Lilly M.D. on 10/04/2025 at 9:25
[2025-10-04 07:46] LABS: Add Manual Diff / Slide Review NO; Hematocrit 40.3 % (41-53); Hemoglobin 13.9 g/dL (13.5-17.5); Lymphocytes Absolute Auto 1800 /uL (1100-4500); Mean Corpuscular HGB Conc 34.6 % (30-36); Mean Corpuscular Hemoglobin 33.3 PG (26-34); Mean Corpuscular Volume 96.2 fL (80-100); Platelet Count 234 X10^3/uL (150-400)
--- NOTE | 2025-10-04 08:20 | EKG_ITS ---
[address] [id number] [address] [address] Test Date: 2025-10-04 Pat Name: Deon Spicer Department: DEFAULT Room: Gender: Male [employer]: RADHA : 1965 Requested By: Order Number: [id number] Reading MD: Syed Dias Measurements Intervals [place] Rate: 65 P: 53 FL: 154 QRS: -22 QRSD: 98 T: 12 QT: 422 QTc: 438 Interpretive Statements Normal sinus rhythm Electronically Signed On 10-05-2025 13:31:56 PST by Syed Dias
[2025-10-04 08:23] LABS: Albumin 4.9 g/dL (3.5-5.0); Blood Urea Nitrogen 18 mg/dL (9-20); Calcium 10.1 mg/dL (8.4-10.2); Carbon Dioxide 22 mmol/L (22-32); Chloride 108 mmol/L (98-107); Estimated Glomerular Filt Rate > 60 mL/min (>60); Glucose 96 mg/dL (70-99); HEMOLYSIS < 15 (0-50); Potassium 4.2 mmol/L (3.4-5.1); Sodium 141 mmol/L (137-145)
[2025-10-04 08:26] LABS: Hemoglobin A1C% w Est Avg Glu 5.7 % (4.0-6.0)
== END ==
PROVIDERS: Referring Provider Orthopaedic Surgery; Visit Provider Orthopaedic Surgery
DX: Z01.818 Encounter for other preprocedural examination (principal); S46.212A Strain of muscle, fascia and tendon of other parts of biceps, left arm, initial encounter; M25.422 Effusion, left elbow; X50.0XXA Overexertion from strenuous movement or load, initial encounter
CPT/HCPCS: 36415; 73221; 80048; 82040; 83036; 85025; 93005

== ENCOUNTER → 2025-10-10 06:07 | Day surgery (SDC) | payer OTHER, SELFPAY ==
[2022-07-20 14:06] VITALS: BMI 20.9
[2025-09-30 12:43] VITALS: BMI 29.7
[2025-10-10] VITALS (7 sets, daily range): BP systolic 112–130; BP diastolic 68–77; PULSE 67–75; RESP 12–16; TEMP 36.2–36.3; O2SAT 93–98
[2025-10-10] MEDS: LACTATED RINGERS 1,000 ML 84 ML IV (07:08)
--- NOTE | 2025-10-10 07:13 | PM.PREOP ---
Pre-operative Note Interval Note History & Physical reviewed/Exam performed by Physician: Yes Changes to H&P: No
--- NOTE | 2025-10-10 07:49 | SUR.OPER ---
Supine on padded OR bed, head on pillow, non-operative arm secured on padded arm board at <90 degrees abduction, legs uncrossed, safety belt at thigh, tape over blanket over lower legs, operative arm on padded arm table, final positioning done by provider
--- NOTE | 2025-10-10 10:32 | P.OP_ITS ---
Operative Date/Time/Diagnoses Date of procedure: 10/10/25 Time of procedure: 07:45 Pre-op diagnosis: LEFT distal biceps rupture Post-op diagnosis: same Procedure & Clinicians Procedure: Left distal biceps repair Same procedure(s) as scheduled: Yes Surgeon: David Kearney Assisted?: Yes Transaction Coordinator: Karol Rene Anesthesia Type: General Operative Notes Findings: Complete left distal biceps tear. Closure Type: primary Specimen(s): none sent Applied: cast(s) Estimated Blood Loss (mL): 10 Blood products transfused: none Tourniquet time (min): 99 Procedure in detail: Laterality: Left Preoperative diagnosis: Distal biceps tendon rupture Procedure performed: Distal distal biceps tendon repair Postoperative diagnosis: Same Primary Surgeon: David Kearney MD Secondary Surgeon: Anila Anesthesia: General EBL: 10 ml Tourniquet: 99 minutes @ 250 mmHg Implants: Arthrex Fiberloop x1 and Arthrex Distal Biceps Button Indication For Surgery: Complete tear of the distal biceps tendon. There was an abnormal hook and reverse jean carlos deformity. The risks, benefits, and alternatives were discussed. Risks include pain, bleeding, infection, damage to nearby structures and cartilage, lack of symptom relief, need for further surgery, DVT, PE, stroke, and . Written consent was obtained. Examination Under Anesthesia: biceps tendon stump is felt in the antecubital fossa Operative Findings: Full thickness biceps tendon tear with retraction. Procedure in Detail: The patient was met in the pre-operative hold area. Consent was verified and operative extremity was signed. Regional block was given by anesthesia. The patient then met with anesthesia and was brought back to the operating room. The patient was placed supine on the operating table. A general anesthetic was administered. The operative arm was prepped and draped in the usual sterile fashion. A timeout was performed per protocol. All were in agreement and we proceeded. The esmarch exsanguinated the limb and the tourniquet was elevated. A longitudinal incision was from the antecubital fossa extending along the medial border of brachioradialis. The forearm was supinated throughout the case and an [employer] was used exclusively lateral to the radius. LABCN was identified and protected throughout the case. Dissection was brought down and crossing veins/arteries were tied and ligated. The tuberosity was identified and the biceps tendon was found to be ruptured from the tuberosity. Lacertus was also connected to the biceps tendon holding it distally. Xray confirmed the tuberosity and it was then prepared with an elevator, curved curette, and ro ngeur. The biceps tendon was then isolated and unhealthy tissue was dissected from the tendon (approximately 1cm). I then passed fiberloop with 5 passes starting at the musculotendious junction. The tendon was measured 7 mm. The forearm tissues were retracted with a barron medially and army-[employer] laterally taking care to protect nerves. Utilizing fluoroscopy I identified the location for our drill hole on the radial tuberosity. I ensured that my guidewire was aimed medially and distally to try to prevent injury to PIN. I then overdrilled the near cortex with a 7 mm reamer. We were then able to pass our biceps tendon button through the far cortex and flipped it and ensure that it was against the far cortex. We then sequentially pulled our sutures docking the biceps tendon within the drill hole. The tendon became tight with the elbow extended to 60 degrees. The tendon remained well reduced and the repair was strong. Irrigation was performed. The wound was closed with vicryl in the fat and dermal layers, with nylon in the skin. Local anesthetic was injected into the surgical site. A sterile dressing, splint and sling was applied. The patient was awakened and transiti oned to the recovery room without issue. Postoperative Plan: Same day surgery discharge Splint and Sling until follow up Sutures out at 2 weeks Full ROM at 6 weeks No strenghtening until 12 weeks. David Kearney MD Complications: none Post-operative Condition: stable Disposition: PACU
== END | disposition home or self-care (01) ==
PROVIDERS: Referring Provider Orthopaedic Surgery; Visit Provider Orthopaedic Surgery
PROC: (CPT 24341; principal; 2025-10-10 07:45)
DX: S46.112A Strain of muscle, fascia and tendon of long head of biceps, left arm, initial encounter (principal); X50.0XXA Overexertion from strenuous movement or load, initial encounter; E03.9 Hypothyroidism, unspecified; I95.9 Hypotension, unspecified; F17.210 Nicotine dependence, cigarettes, uncomplicated
CPT/HCPCS: 24342; J0689; J1100; J1171; J1885; J2405; J2704; J7120